=== PATIENT | male | born 1940 | race Caucasian/White ===

== ENCOUNTER 2017-07-09 14:40 | Emergency (ER) | payer MEDICARE, OTHER, SELFPAY | END 2017-07-09 15:55 | disposition home or self-care (01) | PROVIDERS: Emergency Provider Nurse Practitioner Family; Family Provider Internal Medicine Adolescent Medicine; Visit Provider Nurse Practitioner Family | DX: M54.41 Lumbago with sciatica, right side (principal); I10 Essential (primary) hypertension; J45.909 Unspecified asthma, uncomplicated; Z79.82 Long term (current) use of aspirin; Z79.899 Other long term (current) drug therapy; I25.10 Atherosclerotic heart disease of native coronary artery without angina pectoris | CPT/HCPCS: 72110; 73502; 96372; 99201 ==

== ENCOUNTER → 2017-08-20 14:28 | Outpatient (CLI) | payer MEDICARE, OTHER, SELFPAY ==
[2017-08-20 14:50] LABS: Basophils % 0.7 % (0.1-2.0); Eosinophils # 0.1 K/mm3 (0.0-0.4); Eosinophils % 1.4 % (0.1-12.0); Hemoglobin 14.1 g/dL (14.1-18.0); Lymphocytes # 1.1 K/mm3 (0.7-4.5); Mean Corpuscular HGB Conc 32.8 g/dL (31.8-35.4); Mean Corpuscular Volume 94.5 fl (80-94); Mean Platelet Volume 9.2 fl (7.4-10.4); Monocytes # 0.3 K/mm3 (0.1-1.0); Monocytes % 5.9 % (1.7-9.3); Neutrophils # 4.1 K/mm3 (1.8-7.8); Neutrophils % 72.1 % (37.0-80.0); Platelet Count 137 K/mm3 (142-424); Red Blood Count 4.55 M/mm3 (4.60-6.20); White Blood Count 5.7 K/mm3 (4.8-10.8)
[2017-08-20 15:13] LABS: Anion Gap 14.2 mEq/L (5-15); Blood Urea Nitrogen 13 mg/dL (7-18); Carbon Dioxide 29 mmol/L (21.0-32.0); Chloride 106 mmol/L (98-107); Estimated Glomerular Filt Rate 82 ml/min (>60); GFR (African American) 99 ML/MIN (>60); Glucose 179 mg/dL (74-106); Potassium 4.2 mmoL/L (3.5-5.1); Sodium 145 mmol/L (136-145)
== END ==
PROVIDERS: PCP Internal Medicine Adolescent Medicine; Visit Provider Orthopaedic Surgery
DX: Z01.818 Encounter for other preprocedural examination (principal); M54.9 Dorsalgia, unspecified
CPT/HCPCS: 36415; 80048; 85025; 93005

== ENCOUNTER 2017-09-01 00:57 | Emergency (ER) | payer MEDICARE, OTHER, SELFPAY ==
--- NOTE | 2017-09-01 | CT_ITS ---
CT angio chest HISTORY: Shortness of breath, recent surgery, history of pulmonary embolus ITS.REASON: SOB ORDERING PHYSICIAN: Anmol Chand MD PATIENT AGE: 76 years TECHNIQUE: Axial images obtained following the administration of 75 mL of Isovue 370 . Sagittal, and coronal reformatted images are also generated and reviewed. COMPARISON: None FINDINGS: There is persistent filling defect within the posterior basal branch of the left lower lobe pulmonary artery. This was present on previous exam and could be related to chronic embolus. No other filling defects are apparent. No evidence of aortic aneurysm. Small lymph nodes are present within the mediastinum. Scattered fibrotic changes are present in the apices with scattered noncalcified nodular opacities once again noted less than 6 mm unchanged. There are scattered fibrotic changes with bronchial thickening. No lobar consolidation or collapse. Pulmonary arteries are somewhat prominent and may be related to pulmonary artery hypertension. Coronary artery calcification noted. Small hiatal hernia. Degenerative changes thoracic spine. IMPRESSION: 1. Persistent filling defect in the left lower lobe branches of the pulmonary artery similar to the previous exam and could represent chronic thromboembolus. No new areas of pulmonary emboli.. Previously described other areas of pulmonary emboli have resolved. 2. Scattered stable pulmonary nodular opacities. 6 month follow-up suggested. 3. Mild prominence of the main pulmonary artery which may be seen with pulmonary artery hypertension. 4. Coronary artery disease.
--- NOTE | 2017-09-01 01:04 | XR_ITS ---
XR chest portable HISTORY: ITS.REASON: chest pain ORDERING PHYSICIAN: Anmol Chand MD PATIENT AGE: 76 years COMPARISON: 02/24/2017 FINDINGS: The cardiomediastinal silhouette and pulmonary vascularity are within normal limits. The lungs are clear without infiltrates, suspicious nodules, or pleural effusions. No acute bony abnormalities. IMPRESSION: Negative chest, no acute finding
[2017-09-01 01:12] VITALS: BP 155/100; PULSE 76; RESP 20; TEMP 36.4; O2SAT 98; BMI 25.6
--- NOTE | 2017-09-01 01:34 | PC.NURSE ---
PT. REPORTS HE TOOK A PRESCRIBED PAIN PILL AT 1130 PM AND THEN TOOK 325MG OF ASPIRIN WHEN THE PAIN CONTINUED IN HIS CHEST.
[2017-09-01 01:42] VITALS: BP 145/91; PULSE 73; O2SAT 93
--- NOTE | 2017-09-01 01:52 | [facility].EDCP ---
ED Disposition Clinical Impression: Chest pain Qualifiers: Chest pain type: other chest pain Qualified Code(s): R07.89 - Other chest pain; R07.8 - Other chest pain Disposition: Home, Self-Care Condition on Discharge: Good Instructions: DI for Atypical Chest Pain Additional Instructions: see pcp for angelo gar Referrals: Sebastian Polanco MD [Primary Care Provider] - - Critical Care Critical Care Time: No Attestation: On 09/01/17, the high probability of a clinically significant, sudden or life threatening deterioration of the following system(s) required my full and direct attention, intervention and personal management. The time I documented below is in addition to time spent performing reported procedures but includes the following listed in this critical care notation. Medical Decision Making - Medical Records Medical records reviewed: Yes: I reviewed the patient's medical records. Vital Signs: 09/01/17 01:12 09/01/17 01:42 Temperature 97.6 F Temperature Source Oral Pulse Rate [Right Radial] 76 73 Respiratory Rate 20 Blood Pressure [Right Arm] 155/100 145/91 Blood Pressure Mean [Right Arm] 118 109 Blood Pressure Source [Right Arm] Automatic Cuff Automatic Cuff Blood Pressure Position [Right Arm] Supine 02 Sat by Pulse Oximetry 98 93 L Oxygen Delivery Method Room Air Room Air - Lab Data Lab results reviewed: Yes: I reviewed the patient's lab results. Lab Results 09/01/17 01:20: Sodium 142, Potassium 4.6, Chloride 103, Carbon Dioxide 30, Anion Gap 13.6, BUN 15, Creatinine 1.03, Estimated Creat Clear 78, Estimated GFR 70, Est GFR ( Amer) 85, Glucose 152 H, Calcium 8.8, Total Bilirubin 0.6, AST 40 H, ALT 36, Alkaline Phosphatase 84, Total Creatine Kinase 455 H, CK-MB (CK-2) 22.8 H*, CK-MB (CK-2) Rel Index 5.0 H, Troponin I 0.07 H, Total Protein 7.0, Albumin 3.9, Globulin 3.1, Albumin/Globulin Ratio 1.3 09/01/17 01:51: WBC 8.8, RBC 4.26 L, Hgb 13.2 L, Hct 40.3 L, MCV 94.6 H, MCH 31.1, MCHC 32.9, RDW 13.2, Plt Count 132 L, MPV 8.8, Neut % (Auto) 88.5 H, Lymph % (Auto) 5.6 L, [place] % (Auto) 5.2, Eos % (Auto) 0.2, Baso % (Auto) 0.5, Neut # (Auto) 7.8, Lymph # (Auto) 0.5 L, [place] # (Auto) 0.5, Eos # (Auto) 0.0, Baso # (Auto) 0.0, Total Counted 100, Neutrophils % (Manual) 82 H, Band Neutrophils % 8.0, Lymphocytes % (Manual) 7 L, Monocytes % (Manual) 3, Platelet Estimate Slight decrease, RBC Morphology Normal 09/01/17 04:15: Total Creatine Kinase 372 H, CK-MB (CK-2) 17.6 H*, CK-MB (CK-2) Rel Index 4.7 H, Troponin I < 0.02 Result diagrams: 09/01/17 01:51 09/01/17 01:20 Orders (Tests/Meds): ED MEDICATIONS Discontinued Medications Generic Name Dose Route Start Last Admin Trade Name Freq PRN Reason Stop Dose Admin Iopamidol 70 ml 09/01/17 04:15 09/01/17 04:20 [id number]; 75ml Vial IV 09/01/17 04:16 70 ml ONCE ONE Administration Sodium Chloride 40 ml 09/01/17 04:11 09/01/17 04:17 Rad-Ns 20ml Vial IV 09/01/17 04:12 40 ml ONCE ONE Administration Sodium Chloride 10 ml 09/01/17 04:15 09/01/17 04:19 Rad-Saline Flush 10ml Syringe IV 09/01/17 04:16 10 ml ONCE ONE Administration ORDERS Category Date Time Status CT angio chest Stat Cat Scan 09/01/17 Taken Chest XR -- portable [XR chest portable] Stat Exams 09/01/17 01:04 Taken ECG Request by /Edinson Stat Y 09/01/17 01:04 Ordered - Radiology Data #1 Image(s): Chest Image Reviewed: Yes I reviewed the patient's radiology image Preliminary Findings: Normal/NAD - CT Data CT Scan: Chest Time Received: 05:[address] Reviewed: Yes: I have viewed the radiologist's interpretation Preliminary Findings: Normal/NAD - ECG Data Tracing #1 I reviewed this ECG and interpreted as documented below: Normal Sinus Rhythm: Yes Ischemic changes: non-specific ST-T wave changes (no changes as compared to old ekg) - Jamir Inquiry Pt receiving controlled substance: No Chest Pain HPI - General Norma
[2017-09-01 01:58] LABS: Alanine Aminotransferase 36 U/L (12-78); Albumin Level 3.9 gm/dL (3.4-5.0); Albumin/Globulin Ratio 1.3 (1.1-1.8); Alkaline Phosphatase 84 U/L (46-116); Anion Gap 13.6 mEq/L (5-15); Aspartate Amino Transferase 40 U/L (15-37); Bilirubin,Total 0.6 mg/dL (0.2-1.0); Blood Urea Nitrogen 15 mg/dL (7-18); Carbon Dioxide 30 mmol/L (21.0-32.0); Chloride 103 mmol/L (98-107); Creatine Kinase 455 U/L (39-308); Creatinine Clearance Estimated 78 mL/min (0-300); Creatinine,Serum 1.03 mg/dL (0.70-1.30); Estimated Glomerular Filt Rate 70 ml/min (>60); GFR (African American) 85 ML/MIN (>60); Globulin 3.1 gm/dl (1.3-3.2); Glucose 152 mg/dL (74-106); Potassium 4.6 mmoL/L (3.5-5.1); Sodium 142 mmol/L (136-145); Troponin I 0.07 ng/ml (0.00-0.06)
[2017-09-01 02:00] LABS: Basophils % 0.5 % (0.1-2.0); Eosinophils % 0.2 % (0.1-12.0); Hematocrit 40.3 % (42.0-52.0); Hemoglobin 13.2 g/dL (14.1-18.0); Lymphocytes # 0.5 K/mm3 (0.7-4.5); Lymphocytes % 5.6 K/mm3 (10-50); Mean Corpuscular HGB Conc 32.9 g/dL (31.8-35.4); Mean Corpuscular Hemoglobin 31.1 pg (27.0-31.2); Mean Corpuscular Volume 94.6 fl (80-94); Mean Platelet Volume 8.8 fl (7.4-10.4); Monocytes # 0.5 K/mm3 (0.1-1.0); Monocytes % 5.2 % (1.7-9.3); Neutrophils # 7.8 K/mm3 (1.8-7.8); Neutrophils % 88.5 % (37.0-80.0); Platelet Count 132 K/mm3 (142-424); Red Blood Count 4.26 M/mm3 (4.60-6.20); Red Cell Distribution Width 13.2 % (11.5-17.5); White Blood Count 8.8 K/mm3 (4.8-10.8)
[2017-09-01 02:02] LABS: MANUAL DIFFERENTIAL MANUAL DIFFERENTIAL (MANUAL DIFF)
[2017-09-01 02:05] LABS: Calcium 8.8 mg/dL (8.5-10.1); Creatine Kinase MB 22.8 mg/ml (0.0-3.6)
[2017-09-01 02:28] LABS: Lymphocytes % 7 % (10-50); Monocytes % 3 % (2-9); Neutrophils % 82 % (42-76); Platelet Estimate Slight Decrease; Total Cells Counted 100
[2017-09-01 02:29] LABS: RBC Morphology Normal
[2017-09-01 04:44] LABS: CKMB Relative Index 4.7 U/L (0-4.0); Creatine Kinase 372 U/L (39-308); Troponin I < 0.02 ng/ml (0.00-0.06)
[2017-09-01 04:45] LABS: Creatine Kinase MB 17.6 mg/ml (0.0-3.6)
[2017-09-01 05:36] VITALS: BP 120/83; PULSE 72; RESP 18; TEMP 36.7; O2SAT 94
== END 2017-09-01 05:36 | disposition home or self-care (01) ==
PROVIDERS: Emergency Provider Emergency Medicine; Family Provider Internal Medicine Adolescent Medicine; PCP Internal Medicine Adolescent Medicine
DX: R07.89 Other chest pain (principal); Z79.82 Long term (current) use of aspirin; Z88.6 Allergy status to analgesic agent
CPT/HCPCS: 36415; 71045; 71275; 80053; 82550; 82553; 84484; 85007; 85025; 93005; 93041; 99283; Q9967

== ENCOUNTER → 2017-10-15 13:02 | Outpatient (CLI) | payer MEDICARE, OTHER, SELFPAY ==
--- NOTE | 2017-10-15 13:22 | CT_ITS ---
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 All CT scans at the facility use one or more dose reduction, viz: automated exposure control; ma/kV adjustment per patient size (including targeted exams where dose is matched to indication; i.e. head); or iterative reconstruction technique. FINDINGS: There is soft tissue swelling in the right periorbital region. No obvious acute fracture or dislocation apparent. There is a small metallic density within the soft tissues in the infraorbital region on the right slightly medial consistent with a foreign body. The orbits have an unremarkable appearance otherwise. Lobular mucosal thickening involves the maxillary sinuses bilaterally and the left sphenoid sinus consistent with retention cyst measuring up to 2 cm in the left sphenoid region. Postsurgical changes are present prior medial antrectomies of the maxillary sinuses. Mucosal thickening involves the right maxillary sinus inferiorly measuring up to 9 mm in thickness. No sinus air-fluid level. There are degenerative changes in the cervical spine. IMPRESSION: 1. No acute fracture 2. Right periorbital soft tissue swelling with a small metallic foreign body in the infraorbital region on the right measuring approximately 2 mm. 3. Postsurgical changes of the maxillary sinuses with chronic paranasal sinus disease including 2 cm retention cyst in the left aspect sphenoid sinus
--- NOTE | 2017-10-15 13:22 | CT_ITS ---
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 Brain and bone windows reviewed. All CT scans at the facility use one or more dose reduction, viz: automated exposure control; ma/kV adjustment per patient size (including targeted exams where dose is matched to indication; i.e. head); or iterative reconstruction technique. FINDINGS: No midline shift, mass effect, intracranial hemorrhage, hydrocephalus, or extra-axial fluid collection is evident. Scattered areas of decreased attenuation are present in the periventricular and subcortical regions bilaterally consistent with ischemic gliotic change from microvascular disease. No intra or extra-axial hemorrhage is evident. Soft tissue swelling is present in the right supraorbital region. No obvious calvarial fracture. IMPRESSION: 1. No acute intracranial findings. 2. Right femoral soft tissue swelling. 3. Ischemic gliotic change from microvascular disease
== END ==
PROVIDERS: PCP Internal Medicine Adolescent Medicine; Visit Provider Nurse Practitioner Family
DX: H05.231 Hemorrhage of right orbit (principal); Z79.01 Long term (current) use of anticoagulants; W19.XXXA Unspecified fall, initial encounter
CPT/HCPCS: 70450; 70486

== ENCOUNTER → 2017-12-25 10:54 | Outpatient (POV) | payer MEDICARE, OTHER, SELFPAY | PROVIDERS: Family Provider Internal Medicine Adolescent Medicine; PCP Internal Medicine Adolescent Medicine; Visit Provider Internal Medicine | DX: Z00.00 Encounter for general adult medical examination without abnormal findings (principal) ==

== ENCOUNTER → 2018-01-08 15:06 | Outpatient (CLI) | payer MEDICARE, OTHER, SELFPAY ==
[2018-01-08 15:36] LABS: Basophils % 0.8 % (0.1-2.0); Eosinophils # 0.1 K/mm3 (0.0-0.4); Eosinophils % 1.7 % (0.1-12.0); Hematocrit 46.3 % (42.0-52.0); Hemoglobin 15.1 g/dL (14.1-18.0); Lymphocytes # 0.7 K/mm3 (0.7-4.5); Lymphocytes % 17.2 K/mm3 (10-50); Mean Corpuscular HGB Conc 32.6 g/dL (31.8-35.4); Mean Corpuscular Hemoglobin 30.5 pg (27.0-31.2); Mean Corpuscular Volume 93.5 fl (80-94); Mean Platelet Volume 10.5 fl (7.4-10.4); Monocytes # 0.3 K/mm3 (0.1-1.0); Monocytes % 6.1 % (1.7-9.3); Neutrophils # 3.2 K/mm3 (1.8-7.8); Neutrophils % 74.1 % (37.0-80.0); Platelet Count 107 K/mm3 (142-424); Red Blood Count 4.96 M/mm3 (4.60-6.20); Red Cell Distribution Width 12.3 % (11.5-17.5); White Blood Count 4.3 K/mm3 (4.8-10.8)
[2018-01-08 15:57] LABS: D-Dimer 607 ng/mL (0-400)
[2018-01-08 17:23] LABS: Anion Gap 10.8 mEq/L (5-15); Blood Urea Nitrogen 16 mg/dL (7-18); Calcium 9.1 mg/dL (8.5-10.1); Carbon Dioxide 31 mmol/L (21.0-32.0); Chloride 104 mmol/L (98-107); Creatine Kinase 144 U/L (39-308); Creatine Kinase MB 7.2 ng/ml (0.0-3.6); Creatinine,Serum 0.72 mg/dL (0.70-1.30); Estimated Glomerular Filt Rate 105 ml/min (>60); GFR (African American) 127 ML/MIN (>60); Glucose 102 mg/dL (74-106); Potassium 4.8 mmoL/L (3.5-5.1); Sodium 141 mmol/L (136-145); Troponin I < 0.02 ng/ml (0.00-0.06)
== END ==
PROVIDERS: Visit Provider Internal Medicine Adolescent Medicine
DX: Z86.711 Personal history of pulmonary embolism (principal)
CPT/HCPCS: 36415; 80048; 82550; 82553; 84484; 85025; 85378

== ENCOUNTER → 2018-01-09 08:34 | Outpatient (CLI) | payer MEDICARE, OTHER, SELFPAY ==
--- NOTE | 2018-01-09 08:49 | CT_ITS ---
CT angio chest HISTORY: Chest pain, history of pulmonary embolus ITS.REASON: H/O PULMONARY EMBOLISM ORDERING PHYSICIAN: Sebastian Polanco MD PATIENT AGE: 77 years COMPARISON: 09/01/2017 TECHNIQUE: Axial images obtained following the administration of 75 mL of Isovue 370 . Sagittal, and coronal reformatted images are also generated and reviewed. All CT scans at the facility use one or more dose reduction, viz: automated exposure control; ma/kV adjustment per patient size (including targeted exams where dose is matched to indication; i.e. head); or iterative reconstruction technique. FINDINGS: There are a few small stable mediastinal lymph nodes. Coronary artery calcifications are present. No evidence of aortic aneurysm or dissection. There is some tortuosity of the lower thoracic aorta. No evidence of pulmonary embolus previously noted embolus in the left lower lobe branches no longer apparent. There remains prominence of the main pulmonary artery with a pulmonary artery/aorta ratio greater than 1 which may be seen with pulmonary arterial hypertension There are stable sub-6 mm small bilateral pulmonary nodular densities. No new nodules evident. No effusions or infiltrates. Scattered fibrotic changes are noted. Degenerative changes thoracic spine. No acute finding in the upper abdomen. IMPRESSION: 1. No evidence of acute pulmonary embolus. Previously noted embolus in the left lower lobe has resolved. 2. Scattered fibrotic changes with stable small bilateral pulmonary nodules 3. COPD with persistent prominence of the main pulmonary artery which may be seen with pulmonary arterial hypertension
== END ==
PROVIDERS: Family Provider Internal Medicine Adolescent Medicine; PCP Internal Medicine Adolescent Medicine; Visit Provider Internal Medicine Adolescent Medicine
DX: Z86.711 Personal history of pulmonary embolism (principal)
CPT/HCPCS: 71275; Q9967

== ENCOUNTER → 2018-01-21 12:41 | Outpatient (CLI) | payer MEDICARE, OTHER, SELFPAY ==
--- NOTE | 2018-01-21 12:46 | NVE_ITS ---
Venous Exam Indications: 729.5 Pain in limb. IMPRESSIONS 1. There is no evidence of significant Reflux. 2. No evidence of deep or superficial vein thrombosis involving the right lower extremity and left lower extremity Complete lower extremity venous duplex evaluation. Doppler flow study including spectral analysis, color and antonio scale imaging. Location: Vascular laboratory. Patient status: Outpatient. Tables: Venous flow and imaging: + +-------+ + Location Overall Flow properties + +-------+ + Right common femoral Patent Normal phasicity; spontaneous; normal augmentation; compressible + +-------+ + Right saphenofemoral junction Patent Compressible + +-------+ + Right profunda femoral Patent Compressible + +-------+ + Right femoral Patent Normal phasicity; spontaneous; normal augmentation; compressible; no reflux + +-------+ + Right greater saphenous Patent Normal phasicity; spontaneous; normal augmentation; compressible + +-------+ + Right popliteal Patent Normal phasicity; spontaneous; normal augmentation; compressible + +-------+ + Right posterior tibial Patent Compressible + +-------+ + Right peroneal Patent Compressible + +-------+ + Right gastrocnemius Patent Compressible + +-------+ + Right soleal Patent Compressible + +-------+ + Left common femoral Patent Normal phasicity; spontaneous; normal augmentation; compressible + +-------+ + Left saphenofemoral junction Patent Compressible + +-------+ + Left profunda femoral Patent Compressible + +-------+ + Left femoral Patent Normal phasicity; spontaneous; normal augmentation; compressible + +-------+ + Left greater saphenous Patent Normal phasicity; spontaneous; normal augmentation; compressible + +-------+ + Left popliteal Patent Normal phasicity; spontaneous; normal augmentation; compressible + +------
== END ==
PROVIDERS: Family Provider Internal Medicine Adolescent Medicine; PCP Internal Medicine Adolescent Medicine; Visit Provider Internal Medicine Adolescent Medicine
DX: M79.604 Pain in right leg (principal); M79.605 Pain in left leg; R79.1 Abnormal coagulation profile
CPT/HCPCS: 93970

== ENCOUNTER → 2018-06-25 10:43 | Outpatient (POV) | payer MEDICARE, OTHER, SELFPAY | PROVIDERS: Visit Provider Internal Medicine | DX: Z00.00 Encounter for general adult medical examination without abnormal findings (principal) ==

== ENCOUNTER → 2018-06-28 13:25 | Outpatient (CLI) | payer MEDICARE, OTHER, SELFPAY ==
--- NOTE | 2018-06-28 13:30 | CA_ITS ---
PROCEDURE: 2-D M-mode and color Doppler study INDICATIONS FOR THE TEST: Chest pain + COPD Heart Murmur Tobacco Smoking Palpitations Fatigue Syncope Edema Hypertension Diabetes Mellitus Rheumatic Fever SOB+STEWARD+Obesity Hyperlipidemia Family History HD Additional History CAD,irregular heart rate, hx of PE's PATIENT INFORMATION HEIGHT: 75 WEIGHT:198 GENDER: Male B/P:133/74 2-D/M-MODE INTERPRETATION: 2-D MEASUREMENTS OBSERVED VALUES IN CMS Right Ventricular Dimension (RVDd) 1.5 Interventricular Septum (Thickness)(IVsd) 1.3 Left Ventricular Internal Dimensions(LVIDd) 5.6 Left Ventricular Posterior Wall (Thickness)(LVPWd) 0.8 Aortic Root 3.1 Aortic Cusp Separation 1.4 Left Atrial Dimensions (LAD) 4.3 2D 1. Left atrium is mildly enlarged, left ventricle is normal size, there is mild concentric left ventricular hypertrophy, endocardial subsequent poorly visualized, visually estimated ejection fraction is probably 50%. A repeat study with Definity contrast is recommended to assess segmental wall motion analysis. 2. The right atrium and right ventricle are normal size and contractility. 3. The aortic valve is minimally thickened and fibrosed. 4. The mitral and tricuspid valve leaflets are minimally thickened. 5. The pulmonic valve is poorly visualized. 6. No significant pericardial effusion noted. DOPPLER INTERROGATION: Doppler interrogation of the aortic, mitral and tricuspid valvular presence of mild mitral and tricuspid regurgitation, tricuspid regurgitation jet velocity is inadequate for calculation of the right ventricular systolic pressure, diastolic parameters are inconclusive. CONCLUSION: 1. Mildly enlarged left atrium, normal left ventricular size, mild concentric left ventricular hypertrophy, endocardial surfaces are poorly visualized, visually estimated ejection fraction is probably 50%, a repeat study with Definity contrast is recommended for analysis of segmental wall motion. Diastolic parameters are inconclusive. 2. Mild mitral and tricuspid regurgitation 3. No significant pericardial effusion noted.
== END ==
PROVIDERS: PCP Internal Medicine Adolescent Medicine; Visit Provider Internal Medicine
DX: R06.00 Dyspnea, unspecified (principal); I49.9 Cardiac arrhythmia, unspecified; I26.99 Other pulmonary embolism without acute cor pulmonale
CPT/HCPCS: 93005; 93306

== ENCOUNTER → 2019-01-08 11:20 | Outpatient (CLI) | payer MEDICARE, OTHER, SELFPAY ==
[2019-01-08 11:47] LABS: Basophils % 0.9 % (0.1-2.0); Eosinophils # 0.1 K/mm3 (0.0-0.4); Eosinophils % 1.8 % (0.1-12.0); Hematocrit 44.5 % (42.0-52.0); Hemoglobin 14.4 g/dL (14.1-18.0); Lymphocytes # 0.9 K/mm3 (0.7-4.5); Lymphocytes % 24.6 % (10-50); Mean Corpuscular HGB Conc 32.3 g/dL (31.8-35.4); Mean Corpuscular Hemoglobin 30.1 pg (27.0-31.2); Mean Platelet Volume 7.7 fl (7.4-10.4); Monocytes # 0.2 K/mm3 (0.1-1.0); Monocytes % 6.4 % (1.7-9.3); Neutrophils # 2.4 K/mm3 (1.8-7.8); Neutrophils % 66.4 % (37.0-80.0); Platelet Count 155 K/mm3 (142-424); Red Blood Count 4.78 M/mm3 (4.60-6.20); Red Cell Distribution Width 12.4 % (11.5-17.5); White Blood Count 3.6 K/mm3 (4.8-10.8)
[2019-01-08 15:48] LABS: Alanine Aminotransferase 42 U/L (12-78); Albumin Level 3.9 gm/dL (3.4-5.0); Albumin/Globulin Ratio 1.5 (1.1-1.8); Alkaline Phosphatase 83 U/L (46-116); Anion Gap 14.7 mEq/L (5-15); Aspartate Amino Transferase 30 U/L (15-37); Bilirubin,Total 0.5 mg/dL (0.2-1.0); Blood Urea Nitrogen 15 mg/dL (7-18); Calcium 9.1 mg/dL (8.5-10.1); Carbon Dioxide 28 mmol/L (21.0-32.0); Chloride 105 mmol/L (98-107); Chol/HDL Ratio 3.1 (1-3.5); Cholesterol 157 mg/dL (140-200); Creatine Kinase 233 U/L (39-308); Creatinine,Serum 0.78 mg/dL (0.70-1.30); Estimated Glomerular Filt Rate 96 ml/min (>60); Free Thyroxine Index 2.6 ug/dL (5.93-13.13); GFR (African American) 116 ML/MIN (>60); Globulin 2.6 gm/dl (1.3-3.2); Glucose 89 mg/dL (74-106); HDL Cholesterol 50 mg/dL (27-67); LDL Cholesterol 84 mg/dL (0-130); Magnesium 2.2 mg/dL (1.4-2.2); Potassium 4.7 mmoL/L (3.5-5.1); Prostate Specific Ag Screen 4.1 ng/mL (0.0-4.0); Sodium 143 mmol/L (136-145); Thyroid Stimulating Hormone 1.14 uIU/ml (0.358-3.740); Total Protein,Serum 6.5 gm/dL (6.4-8.2); Triglycerides 113 mg/dL (30-200); Triiodothryronine (T3) Uptake 33 % (31-39); VLDL Cholesterol 23 mg/dL (0-40)
[2019-01-09 18:56] LABS: Vitamin B12 375 pg/mL (232-1245); Vitamin D 25 Hydroxy 36.1 ng/mL (30.0-100.0)
== END ==
PROVIDERS: Visit Provider Internal Medicine Adolescent Medicine
DX: G60.9 Hereditary and idiopathic neuropathy, unspecified (principal); M79.10 Myalgia, unspecified site; E78.5 Hyperlipidemia, unspecified; R97.20 Elevated prostate specific antigen [PSA]; Z12.5 Encounter for screening for malignant neoplasm of prostate
CPT/HCPCS: 36415; 80053; 80061; 82550; 82607; 82652; 83735; 84436; 84443; 84479; 85025; G0103

== ENCOUNTER 2020-06-26 09:12 | Observation (INO) | payer MEDICARE, OTHER, SELFPAY ==
[2020-06-26] VITALS (9 sets, daily range): BP systolic 126–203; BP diastolic 68–113; PULSE 62–89; RESP 16–20; TEMP 36.6–36.8; O2SAT 95–99; BMI 24.8; BMI 24.6
--- NOTE | 2020-06-26 09:26 | CT_ITS ---
PROCEDURE: CT HEAD/BRAIN WO CON CLINICAL INDICATION: r/o stroke Right-sided weakness COMPARISON: CT HEADWO CT head/brain wo con from 10/15/2017 TECHNIQUE: Axial images obtained. All CT scans at the facility use one or more dose reduction, viz: automated exposure control, ma/kV adjustment per patient size (including targeted exams where dose is matched to indication, i.e. head), or iterative reconstruction technique. FINDINGS: No midline shift, mass effect, intracranial hemorrhage, hydrocephalus, or extra-axial fluid collection is evident. There is generalized atrophy with hypoattenuation of the periventricular white matter consistent with microangiopathic changes. The calvarium has an unremarkable appearance. No mastoid effusion. Mild ethmoid mucosal thickening and mild maxillary mucosal thickening. IMPRESSION: No acute intracranial finding Dictated by: Orlando Sena MD 06/26/2020 14:25 Orlando Sena MD in [facility] 06/26/2020 14:25
--- NOTE | 2020-06-26 09:26 | XR_ITS ---
PROCEDURE: XR CHEST 2V CLINICAL HISTORY: chest pain COMPARISON: CR CXR CHEST(2 VIEWS-NOT PORTABLE) from 02/12/2017 CR CXR1 CHEST-PORTABLE from 02/24/2017 CR [id number] XR chest portable from 09/01/[address] angio chest from 01/09/2018 FINDINGS: The cardiomediastinal silhouette and pulmonary vascularity are within normal limits. No lobar consolidation or collapse. There is hyperinflation with attenuation of the peripheral pulmonary vessels suggesting small airway disease. There is also some increased density in the right perihilar region which may be due to vascular and rib overlap. There are degenerative changes in the thoracic spine with mild kyphosis with mild wedging of T7-T8 and T9 which appears chronic IMPRESSION: No definite acute finding. Hyperinflation suggesting small airway disease. Patchy density right perihilar region which may be due to summation artifact versus minimal patchy infiltrate or atelectasis Dictated by: Orlando Sena MD 06/26/2020 14:31 Orlando Sena MD in [facility] 06/26/2020 14:31
--- NOTE | 2020-06-26 09:30 | ECG_ITS ---
APPROVED REPORT Exam: Resting ECG HR:81 bpm ECG Measurements Heart Rate 81 AXES OR 172 P 53 QRSd 98 QRS -58 QT 370 T 53 QTc 429 Conclusion Sinus rhythm with sinus arrhythmia with occasional premature ventricular complexes Left axis deviation Old septal changes Abnormal ECG Electronically signed by : Sebastian Polanco, 06/27/2020 19:57:27
[2020-06-26 09:33] LABS: Basophils % 1.1 % (0.1-2.0); Eosinophils # 0.1 K/mm3 (0.0-0.4); Eosinophils % 1.8 % (0.1-12.0); Hematocrit 49.5 % (42.0-52.0); Hemoglobin 16.6 g/dL (14.1-18.0); Lymphocytes # 0.9 K/mm3 (0.7-4.5); Lymphocytes % 24.2 % (10-50); Mean Corpuscular HGB Conc 33.4 g/dL (31.8-35.4); Mean Corpuscular Hemoglobin 31.9 pg (27.0-31.2); Mean Corpuscular Volume 95.6 fl (80-94); Mean Platelet Volume 11.7 fl (7.4-10.4); Monocytes # 0.2 K/mm3 (0.1-1.0); Monocytes % 5.6 % (1.7-9.3); Neutrophils # 2.5 K/mm3 (1.8-7.8); Neutrophils % 67.2 % (37.0-80.0); Platelet Count 90 K/mm3 (142-424); Red Blood Count 5.18 M/mm3 (4.60-6.20); Red Cell Distribution Width 13.8 % (11.5-17.5); White Blood Count 3.8 K/mm3 (4.8-10.8)
[2020-06-26 09:41] LABS: Chloride 105 mmol/L (98-107); Sodium 140 mmol/L (136-145)
[2020-06-26 09:42] LABS: Potassium 4.6 mmoL/L (3.5-5.1)
[2020-06-26 09:44] LABS: Alanine Aminotransferase 28 U/L (12-78); Albumin Level 4.6 g/dl (3.5-5.0); Albumin/Globulin Ratio 1.6 (1.1-1.8); Alkaline Phosphatase 86 U/L (38-126); Anion Gap 11.6 mEq/L (5-15); Aspartate Amino Transferase 42 U/L (17-59); Bilirubin,Total 0.8 mg/dl (0.2-1.3); Blood Urea Nitrogen 12 mg/dl (9-20); Carbon Dioxide 28 mmol/L (22.0-30.0); Creatinine Clearance Estimated 74 mL/min (50-200); Estimated Glomerular Filt Rate 93 ml/min (>60); GFR (African American) 112 ML/MIN (>60); Globulin 2.8 g/dL (1.3-3.2); Total Protein,Serum 7.4 g/dl (6.3-8.2)
[2020-06-26 09:45] LABS: Calcium 9.6 mg/dl (8.4-10.2); Glucose 105 mg/dl (74-100)
[2020-06-26 09:54] LABS: NT Pro Brain Natriuretic Pep. 952 pg/mL (0-450)
[2020-06-26 09:57] LABS: Activated Partial Thrombo Time 25.3 seconds (23.6-34.0); INR 0.98 (0.9-1.1); Prothrombin Time 10.9 seconds (9.4-11.8)
[2020-06-26 10:10] LABS: Troponin I < 0.01 ng/ml (0.00-0.034)
--- NOTE | 2020-06-26 10:29 | PC.NURSE ---
Dr Amin spoke with Stella
--- NOTE | 2020-06-26 11:05 | PC.NURSE ---
Dr Eloisa mackenzie to dr tucker for dr yanez pt for admission
--- NOTE | 2020-06-26 11:11 | [facility].EDGENADL ---
ED Disposition Clinical Impression: TIA (transient ischemic attack), Hypertensive urgency Disposition: Admitted As Inpatient Condition on Discharge: Fair Referrals: Sebastian Polanco MD [Primary Care Provider] - - Critical Care Critical Care Time: No Attestation: On 06/26/20, the high probability of a clinically significant, sudden or life threatening deterioration of the following system(s) required my full and direct attention, intervention and personal management. The time I documented below is in addition to time spent performing reported procedures but includes the following listed in this critical care notation. Medical Decision Making - Medical Records Medical records reviewed: Yes: I reviewed the patient's medical records. - Jamir Inquiry Pt receiving controlled substance: No Vital Signs: 06/26/20 09:21 06/26/20 09:44 06/26/20 10:14 Temperature 98.2 F Temperature Source Oral Pulse Rate [Right Radial] 84 82 73 Respiratory Rate 17 18 20 Blood Pressure [Right Arm] 203/113 H 179/112 H 169/108 H Blood Pressure Mean [Right Arm] 143 134 128 Blood Pressure Source [Right Arm] Automatic Cuff Automatic Cuff Blood Pressure Position [Right Arm] Sitting Sitting 02 Sat by Pulse Oximetry 95 97 98 Oxygen Delivery Method Room Air Room Air Room Air 06/26/20 10:36 Temperature Temperature Source Pulse Rate [Right Radial] 88 Respiratory Rate 16 Blood Pressure [Right Arm] 163/93 H Blood Pressure Mean [Right Arm] 116 Blood Pressure Source [Right Arm] Blood Pressure Position [Right Arm] Sitting 02 Sat by Pulse Oximetry 98 Oxygen Delivery Method Room Air - Lab Data Lab Results 06/26/20 09:23: WBC 3.8 L, RBC 5.18, Hgb 16.6, Hct 49.5, MCV 95.6 H, MCH 31.9 H, MCHC 33.4, RDW 13.8, Plt Count 90 L, MPV 11.7 H, Neut % (Auto) 67.2, Lymph % (Auto) 24.2, [place] % (Auto) 5.6, Eos % (Auto) 1.8, Baso % (Auto) 1.1, Neut # (Auto) 2.5, Lymph # (Auto) 0.9, [place] # (Auto) 0.2, Eos # (Auto) 0.1, Baso # (Auto) 0.0 06/26/20 09:23: PT 10.9, INR 0.98, APTT 25.3 06/26/20 09:23: Sodium 140, Potassium 4.6, Chloride 105, Carbon Dioxide 28, Anion Gap 11.6, BUN 12, Creatinine 0.80, Estimated Creat Clear 74, Estimated GFR 93, Est GFR ( Amer) 112, Glucose 105 H, Calcium 9.6, Total Bilirubin 0.8, AST 42, ALT 28, Alkaline Phosphatase 86, Troponin I < 0.01, Total Protein 7.4, Albumin 4.6, Globulin 2.8, Albumin/Globulin Ratio 1.6 06/26/20 09:23: NT-Pro-B Natriuret Pep 952 H Result diagrams: 06/26/20 09:23 06/26/20 09:23 Orders (Tests/Meds): ED MEDICATIONS Discontinued Medications Generic Name Dose Route Start Last Admin Trade Name Freq PRN Reason Stop Dose Admin Aspirin 325 mg 06/26/20 11:05 Aspirin 325mg Tablet PO 06/26/20 11:06 ONCE ONE Labetalol HCl 10 mg 06/26/20 09:30 06/26/20 09:39 Labetalol 5mg/Ml 20ml Mdv IV 06/26/20 09:31 10 mg ONCE ONE Administration ORDERS Category Date Time Status CT head/brain wo con Stat Cat Scan 06/26/20 09:26 Taken XR chest 2V Stat Exams 06/26/20 09:26 Taken Troponin I Q3H Lab 06/26/20 12:30 Ordered Troponin I Q3H Lab 06/26/20 15:30 Ordered - CT Data CT Scan: Head Time Received: 11:[address] Reviewed: Yes: I have reviewed the patient's CT results, I have viewed the radiologist's interpretation Preliminary Findings: Normal/NAD - ECG Data Tracing #1 Normal ventricular rate 81 bpm, normal SC interval of 172 ms. Normal QTC. Sinus rhythm with occasional PVC, nonspecific changes. ECG initial impression date: 06/26/20 ECG initial impression time: 09:32 - Reevaluation(s) Time: 11:15 Reevaluation #1: On reevaluation, patient's blood pressure has improved. No acute intracranial findings. Patient's weakness has improved. However given his symptoms I am concerned for possible TIA. Patient was administered aspirin. Admitted to hospital for further evaluation and treatment. Medical Decision Narrative: 79-year-old male presented
[2020-06-26 12:32] LABS: Coronavirus 19 IgG Antibody Negative (Negative); Coronavirus 19 IgM Antibody Negative (Negative)
--- NOTE | 2020-06-26 12:33 | PC.NURSE ---
notified the floor nurse francheska perez that patient is ready for bedside report and transport.
[2020-06-26 14:41] LABS: Troponin I 0.02 ng/ml (0.00-0.034)
--- NOTE | 2020-06-26 15:00 | HMH.HP ---
*Admission Date: 06/26/20 *Chief complaint: right sided numbness/weakness *History of present illness: Mr. Garza is an 79-year-old male with history of hypertension who presented to the ER this morning with complaint of right-sided weakness and numbness. States the symptoms began early this morning approximately 4 AM. Though he may have had similar symptoms yesterday as well per his recollection. They were not as severe however. His son was concerned so they brought him to the emergency room for assessment. States he had similar symptoms but not as severe with the previous mini strokes . Denies missing medication, takes his nebivolol at night. Symptoms starting to show some improvement upon arrival to the ER. Work-up consisted of EKG, CT of his head, vitals and basic labs. Noted to have hypertensive emergency with systolic greater than 200. With a dose of labetalol, his blood pressure has responded nicely with improvement/resolution of his right-sided neurologic symptoms. All his medications as prescribed. Denies any other weakness, word finding difficulty, speech difficulty, syncope, change in vision. No headache. Mild chest discomfort on presentation to the ER. No fevers or chills. No neck pain. No associated shortness of breath or cough. No abdominal pain, vomiting or diarrhea. He was admitted to medicine for further management and treatment of TIA. Started on aspirin Lovenox, the Lovenox not given prior to arrival to the floor. On my assessment after the patient arrived to the floor he appeared alert and oriented. Denied any right-sided weakness at this time. Blood pressure improved with systolics 150-160. [facility] History I have reviewed the patient's past medical history: Yes Medical History: Reports:: Asthma, Deep Vein Thrombosis, Hypertension, Lung Disease Denies:: Diabetes Mellitus Type 1, Diabetes Mellitus Type 2, Internal Pacemaker, MRSA, Seizures *Have you ever received a pneumonia vaccine?: Yes *Have you received a flu vaccine this season?: Yes Laterality Cases: Right: Arthroscopy Shoulder Other Surgeries: Yes: Colonoscopy, Colon Resection, Hernia Repair. No: Pacemaker Amputation: No Fractures: No - *Social History Smoking Status: Never smoker Alcohol Intake: never Alcohol Intake Frequency:: other Substance Use Type: denies use *Occupational Status:: employed Housing: house Household Members: spouse *Travel in the last 8 weeks: None Family Hx:: Unable to obtain Review of Systems - Review of Systems Review of systems:: pertinent systems reviewed and negative unless documented below (14 point review of systems performed, pertinent positives and negatives as per HPI) - *Neurologic Reports weakness Meds Home Medications Medication Instructions Recorded Confirmed Type Aspirin [Aspirin 325mg Tab] 325 mg PO DAILY 09/01/17 06/26/20 History Budesonide/Formoterol Fumarate 2 puff IH BID 09/01/17 06/26/20 History [Symbicort 80-4.5 Mcg Inhaler] Doxazosin Mesylate [Doxazosin 2mg 2 mg PO BID 09/01/17 06/26/20 History Tab] Nebivolol HCl [Bystolic] 5 mg PO DAILY 06/26/20 06/26/20 History Allergies Allergy/AdvReac Type Severity Reaction Status Date / Time acetaminophen [From [place]] Allergy Verified 06/26/20 09:25 hydrocodone [From [place]] Allergy Verified 06/26/20 09:25 Exam Vital signs and Labs for Last 24 Hours: Temp Pulse Resp BP Pulse Ox 97.9 F 89 18 126/68 96 06/26/20 14:00 06/26/20 14:00 06/26/20 14:00 06/26/20 14:00 06/26/20 14:00 Laboratory Results - last 24 hr 06/26/20 09:23: WBC 3.8 L, RBC 5.18, Hgb 16.6, Hct 49.5, MCV 95.6 H, MCH 31.9 H, MCHC 33.4, RDW 13.8, Plt Count 90 L, MPV 11.7 H, Neut % (Auto) 67.2, Lymph % (Auto) 24.2, [place] % (Auto) 5.6, Eos % (Auto) 1.8, Baso % (Auto) 1.1, Neut # (Auto) 2.5, Lymph # (Auto) 0.9, [place] # (Auto) 0.2, Eos # (Auto) 0.1, Baso # (Auto) 0.0 06/26/20 09:23: PT 10.9, INR 0.98, APTT 25.3 06/26/20 09:23: Sodium 140, Potassium 4
--- NOTE | 2020-06-26 16:02 | PC.NURSE ---
Contacted Speech therapy and physical therapy for this pt. Lanette from speech said it will be tomorrow before she can come. I left a voicemail for physical therapy to call back.
--- NOTE | 2020-06-26 17:03 | HMH.PHAVTE ---
[facility] Pharmacy VTE Monitoring - Patient Demographics Admission date: 06/26/20 Report Date: 06/26/20 Time: 17:03 Allergies/Adverse Reactions: Patient Allergies acetaminophen [From [place]] Allergy (Verified 06/26/20 09:25) hydrocodone [From [place]] Allergy (Verified 06/26/20 09:25) Height: 1.91 m Weight: 89.414 kg Patient Problems: Current Active Problems Chest pain (Acute) TIA (transient ischemic attack) (Acute) Hypertensive urgency (Acute) - VTE Risk Labs: VTE Related Lab Results Hgb 16.6 g/dL (14.1-18.0) 06/26/20 09:23 Hct 49.5 % (42.0-52.0) 06/26/20 09:23 Plt Count 90 K/mm3 (142-424) L 06/26/20 09:23 PT 10.9 seconds (9.4-11.8) 06/26/20 09:23 INR 0.98 (0.9-1.1) 06/26/20 09:23 APTT 25.3 seconds (23.6-34.0) 06/26/20 09:23 BUN 12 mg/dl (9-20) 06/26/20 09:23 Creatinine 0.80 mg/dl (0.66-1.25) 06/26/20 09:23 Estimated Creat Clear 74 mL/min (50-200) 06/26/20 09:23 VTE Score: 4 VTE Risk Level: Low Risk - Prophylaxis VTE Prophylaxis Ordered?: Yes Types of VTE Prophylaxis: TEDS Knee High Location of Applied Device: Bilateral Lower Extremeties
--- NOTE | 2020-06-26 17:03 | HMH.PHAINT ---
MEDICATION RECONCILIATION COMPLETED ON PATIENT USING EXTERNAL FILL HISTORY FROM PHARMACY. -ASHLEY FRANCIS, VANDANAD
[2020-06-26 17:20] LABS: Troponin I 0.02 ng/ml (0.00-0.034)
--- NOTE | 2020-06-26 20:20 | PC.NURSE ---
PATIENT IS A&O X4, LUNGS CLEAR, NIH SCALE WAS NEGATIVE, PULSES EQUAL. PATIENT AMBULATED TO RESTROOM 2X WITH STAND BY ASSIST. STEADY GAIT NOTED. PATIENT TOLERATED MEALS WELL. PATIENT REQUIRED THIS RN TO PHONE MD TO GET ORDER FOR SYMBICORT SINCE HIS SON HAD LEFT IT AT HOME. THIS RN SPOKE WITH DR. CID, ORDERS FOR ALBUTEROL NEBULIZER AND WILL ADDRESS SYMBICORT IN AM WITH PHARMACY. 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 PATIENT'S SON BELIEVES THAT PATIENT IS HAVING ANXIETY. NO OTHER CONCERNS AT THIS TIME.
[2020-06-27 03:59] VITALS: BP 160/93; PULSE 67; RESP 18; TEMP 36.5; O2SAT 95
[2020-06-27 05:20] VITALS: BMI 24.2
--- NOTE | 2020-06-27 06:42 | PC.NURSE ---
Pt is alert and oriented x4. Pt rested well with eyes closed with no complaints. No acute changes noted from previous shift. Tolerates RA well with no c/o SOA. Bilateral lungs noted clear t/o upon auscultation. Denies N/V/D. Ambulates well with standby assist in room. Medium BM reported this shift. Adequate urine output noted via urinal. No edema noted. Refused TEDS. VSS. Remains safe. Call light within reach. Will continue to monitor. Pt's home meds are in locked drawer, needs to be verified with pharm this am.
[2020-06-27 08:00] VITALS: BP 144/80; PULSE 75; RESP 18; TEMP 36.6; O2SAT 96
[2020-06-27 08:02] LABS: Eosinophils # 0.1 K/mm3 (0.0-0.4); Eosinophils % 2.8 % (0.1-12.0); Hematocrit 47.1 % (42.0-52.0); Lymphocytes # 0.9 K/mm3 (0.7-4.5); Lymphocytes % 20.9 % (10-50); Mean Corpuscular HGB Conc 31.8 g/dL (31.8-35.4); Mean Corpuscular Hemoglobin 31.4 pg (27.0-31.2); Mean Corpuscular Volume 98.8 fl (80-94); Mean Platelet Volume 10.4 fl (7.4-10.4); Monocytes # 0.2 K/mm3 (0.1-1.0); Monocytes % 5.7 % (1.7-9.3); Neutrophils # 2.8 K/mm3 (1.8-7.8); Neutrophils % 69.6 % (37.0-80.0); Platelet Count 92 K/mm3 (142-424); Red Blood Count 4.77 M/mm3 (4.60-6.20); Red Cell Distribution Width 12.9 % (11.5-17.5)
[2020-06-27 08:06] LABS: Chloride 104 mmol/L (98-107); Potassium 4.3 mmoL/L (3.5-5.1); Sodium 141 mmol/L (136-145)
[2020-06-27 08:09] LABS: Anion Gap 10.3 mEq/L (5-15); Blood Urea Nitrogen 13 mg/dl (9-20); Calcium 9.2 mg/dl (8.4-10.2); Carbon Dioxide 31 mmol/L (22.0-30.0); Creatinine Clearance Estimated 72 mL/min (50-200); Estimated Glomerular Filt Rate 93 ml/min (>60); GFR (African American) 112 ML/MIN (>60); Glucose 104 mg/dl (74-100)
--- NOTE | 2020-06-27 08:22 | HMH.DCSUM ---
General - General Admission date:: 06/26/20 Discharge date: 06/27/20 HPI HPI: Mr. Garza is an 79-year-old male with history of hypertension who presented to the ER this morning with complaint of right-sided weakness and numbness. States the symptoms began early this morning approximately 4 AM. Though he may have had similar symptoms yesterday as well per his recollection. They were not as severe however. His son was concerned so they brought him to the emergency room for assessment. States he had similar symptoms but not as severe with the previous mini strokes . Denies missing medication, takes his nebivolol at night. Symptoms starting to show some improvement upon arrival to the ER. Work-up consisted of EKG, CT of his head, vitals and basic labs. Noted to have hypertensive emergency with systolic greater than 200. With a dose of labetalol, his blood pressure has responded nicely with improvement/resolution of his right-sided neurologic symptoms. All his medications as prescribed. Denies any other weakness, word finding difficulty, speech difficulty, syncope, change in vision. No headache. Mild chest discomfort on presentation to the ER. No fevers or chills. No neck pain. No associated shortness of breath or cough. No abdominal pain, vomiting or diarrhea. He was admitted to medicine for further management and treatment of TIA. Started on aspirin Lovenox, the Lovenox not given prior to arrival to the floor. On my assessment after the patient arrived to the floor he appeared alert and oriented. Denied any right-sided weakness at this time. Blood pressure improved with systolics 150-160. Hospital Course Hospital Course: 79-year-old gentleman who presented to the ER with right-sided neurologic deficits including weakness and sensory deficits. Symptoms resolved as his blood pressure improved from the hypertensive emergency that he presented with. By the time I examined him after he reached the floor, he had no further deficits on his right side. Strength and sensation were equal bilaterally. Admitted overnight to monitor blood pressure and perform neuro checks if symptoms changed. Patient is remained clinically well and hemodynamically stable. Exam this morning with no appreciable deficits. Awaiting formal assessment by speech and physical therapy per protocol. Anticipate patient will have no further recommendations from these services. Medically stable for discharge home. Continue nebivolol. We will also continue dual antiplatelet therapy with aspirin and Plavix for 21 days and then full dose aspirin daily thereafter. Close follow-up in the outpatient setting for neuro exam and blood pressure modification. Objective Vital signs: Temp Pulse Resp BP Pulse Ox 97.9 F 75 18 144/80 H 96 06/27/20 08:00 06/27/20 08:00 06/27/20 08:00 06/27/20 08:00 06/27/20 08:00 Narrative: - Constitutional no acute distress - *Routine HEENT Exam Head: Present: normocephalic Eye: Present: EOMI, PERRL ENT: Present: mucous membranes moist - *Routine Neck Exam Present: supple. Absent: lymphadenopathy - *Routine Respiratory Exam Present: CTA bilaterally - *Routine Cardiovascular Exam Present: RRR - *Routine Abdominal Exam Present: soft, normoactive bowel sounds. Absent: tenderness - *Routine Extremities Exam Absent: cyanosis, clubbing, edema - *Routine Skin Exam Present: warm. Absent: rash - *Routine Neurological Exam Present: alert, oriented X3, CN II-XII intact, normal reflexes, normal speech. Absent: sensory deficit, motor deficit, pronator drift, altered mental status, facial asymmetry Results Labs on day of discharge: Labs from last 24 hours 06/27/20 06/27/20 06/26/20 07:27 07:27 16:30 WBC 4.0 L RBC 4.77 Hgb 15.0 Hct 47.1 MCV 98.8 H MCH 31.4 H MCHC 31.8 RDW 12.9 Plt Count 92 L MPV 10.4 Neut % (Auto) 69.6 Lymph % (Auto) 20.9 Mon
--- NOTE | 2020-06-27 10:21 | HMH.SLDYSPHA ---
Speech & Language Evaluation Speech/Language Dysphagia Evaluation Start: 06/27/20 10:14 Freq: ONCE Status: Active Protocol: Document 06/27/20 10:14 QUIQUE (Rec: 06/27/20 10:21 QUIQUE [id number]) Dysphagia Assess/Goals/Plan Assessment Date of Evaluation: 06/27/20 Evaluation Type Initial Certification Assessment/Problems TIA Does Patient Qualify for Service No Qualify/Failure Comment Evaluation dictates no deficits in swallowing Recommendations PHYSICIAN CERTIFICATION: The specified therapy services are required, authorized, and reviewed every 30 days. Diet Recommendations Normal Liquid Type Recommendations Normal/Thin Plan Pt/Guardian verbally ack understanding Yes of dx/prognosis/goals G -code Required No General Information General Current Food Consistancy Regular,Thin Liquids Dentition Good Dentition Oxygen Status Room Air Facial Symmetry Symmetrical Patient Orientation Person,Place,Time,Situation Ability to Follow Directions Excellent Communication Ability No Impairment Dysphagia:Food Presentation Evaluation Food Type Pureed,Mechanical Soft,Regular ,Liquid,Pudding Dysphagia Evaluation Summary Mr. Garza was given the following consistencies: thins via straw and open cup, pudding, pureed, mechanical soft, and regular. No signs of dysphagia were noted during the evaluation. At this time, it is recommended he remain on regular diet with thin liquids. No outpatient therapy needed upon discharge. Stroke Dysphagia Assessment PHYSICIAN CERTIFICATION: I certify the specified therapy services for Isaias Garza are required, authorized, and reviewed every 30 days.
--- NOTE | 2020-06-27 11:19 | HMH.PTEV ---
Physical Therapy Evaluation Rehab PT IP Evaluation Start: 06/26/20 15:01 Freq: .once Status: Active Protocol: Document 06/27/20 11:14 HU (Rec: 06/27/20 11:19 HU [id number]) Subjective/History History History PT ADMITTED TO [facility] 79 YO MALE W/TIA Subjective Subjective PT REPORTS INITIAL S/S OF R LE N&T, HOWEVER, NOW REPORTS NO RESIDUAL 'MINI STROKE' S/S. UPON ENTERING ROOM THIS AM FOR P.T. EVAL PT FOUND STANDING IN BATHROOM INDEPENDENTLY WITH IV POLE. Rehab PT IP Eval Objective Appearance Patient Behavior Appropriate,Cooperative Patient Orientation Person,Place,Time,Name, Situation Difficulty following instructions none Speech Pattern Clear,Appropriate Ambulation Patient Able to Ambulate Yes Ambulation Observation IP General Gait Pattern Observation No Deviations/Normal Ambulation Distance (feet) 30 Ambulation Assistive Device None Ambulation Ability Independent Balance Ability to Arise Able, w/o using arms Sitting Balance Steady, safe Standing Balance Narrow stance w/o support Dynamic Sitting Balance Ability Normal Dynamic Standing Balance Ability Normal Transfers Bed Transfer Ability Independent Chair Transfer Ability Independent Sit to Stand Bed Transfer Ability Independent Sit to Stand Chair Transfer Ability Independent ROM All Extremities PT ROM Status WFL MMT All Extremities PT MMT WFL Rehab PT IP prob,goals,plan Problems Date of Evaluation: 06/27/20 Rehab Potential Rehab Potential Innapropriate for Skilled Therapy Discharge Plan PT Discharge Plan PT W/OBJECTIVELY NORMAL/ INDEPENDENT FINDINGS ON PT EVAL, PT SAFE TO RETURN TO HOME W/SPOUSE INDEPENDENTLY W/ DISCHARGE FROM ORDERING PHYSICIAN. G -code Required No Eval Complexity Eval Charge Codes 62303 - Low Complexity PHYSICIAN CERTIFICATION: I certify the specified therapy services for Isaias Garza are required, authorized, and reviewed every 30 days.
--- NOTE | 2020-06-27 15:10 | HMH.PHAINT ---
[id number] MEDICATION COUNSELING COMPLETED CONTACTED DR SKINNER ABOUT ASPIRIN 325 MG DAILY WITH PLAVIX. MD WANTS PATIENT TO TAKE ASPIRIN 81 MG DAILY WITH PLAVIX UNTIL PLAVIX IS STOPPED.
== END 2020-06-27 14:25 | disposition home or self-care (01) ==
LOC: ER 11:16 → 2ND 14:39
PROVIDERS: Admitting Provider Family Medicine; Emergency Provider Emergency Medicine; PCP Internal Medicine Adolescent Medicine; Visit Provider Internal Medicine Adolescent Medicine
DX: I16.0 Hypertensive urgency (principal); I10 Essential (primary) hypertension; G45.9 Transient cerebral ischemic attack, unspecified; R07.9 Chest pain, unspecified; Z79.899 Other long term (current) drug therapy; R06.9 Unspecified abnormalities of breathing
CPT/HCPCS: 70450; 71046; 80048; 80053; 83880; 84484; 85025; 85610; 85730; 86328; 92610; 93005; 96365; 96375; 97161; 99284; G0378

== ENCOUNTER → 2020-07-02 10:52 | Outpatient (CLI) | payer MEDICARE, OTHER, SELFPAY ==
--- NOTE | 2020-07-02 | CA_ITS ---
APPROVED REPORT EXAM: Comprehensive 2D, Doppler, and color-flow Echocardiogram [employer] Driver: Octavia Patrick CRT Ht: 6 ft 3 in Wt: 180lbs BSA: 2.10 BP: 126/68 mmHg Indications: COPD, CVA/TIA, Palpitations, Hypertension/HDD 2D Dimensions LVOT 1.93 cm (M/F) 1.5-2.5 LVEF (Coy's) 43.30 % LV Volume 162.00 mL M-Mode Dimensions RVDd 2.77 cm (0.9-2.6) LA Diam 4.01 cm (1.9-4.0) LVDd 6.26 cm (3.5-5.7) Ao Diam 4.13 cm (2.0-3.7) LVDs 4.29 cm (3.5-5.7) IVSd 1.34 cm (0.6-1.1) PWd 0.98 cm (0.6-1.1) EF (Teich) 58.30% FS 31.50% EDV (Teich) 198.30 mL ESV (Teich) 82.60 mL LV Diastology E Decel Time 653.00 (160-240 msec) E/A Ratio 0.74 MED E' 4.60 (< 7 cm/sec) E'/MED E' Ratio 9.54 (>14) LAT E' 4.30 (<10 cm/sec) E/LAT E' Ratio 10.21 (>14) Aortic Valve AO Peak GR. 5.80 mmHg Mitral Valve MV A Velocity 59.00 (40-130 cm/s) E/A Ratio 0.74 MV Decel. Time 653.00 (160-240 ms) Pulmonary Valve PV Peak Velocity 89.00 (50-150 cm/s) Tricuspid Valve TR P. Velocity 182.00 cm/s RAP Estimate 10.00 mmHg RVSP 23.20 mmHg Left Ventricle Left atrium is mildly enlarged, left ventricle is normal size, mild concentric left ventricular hypertrophy, visually estimated ejection fraction approximately 45%, with no regional wall motion abnormality, grade 1 diastolic dysfunction seen without tissue Doppler evidence of raise left atrial pressure. Right Ventricle Right atrium and right ventricle are mildly enlarged with normal contractility. Aortic Valve Aortic valve is minimally thickened and fibrosed, there is no aortic stenosis or aortic insufficiency. Mitral Valve Mitral valve is grossly normal, there is mild mitral regurgitation. Tricuspid Valve Tricuspid valve is grossly normal, there is mild tricuspid regurgitation, tricuspid regurgitation jet velocity is inadequate for calculation of the right ventricular systolic pressure. Pulmonic Valve Pulmonic valve is poorly visualized. Great Vessels Aortic root is normal size. Pericardium No significant pericardial effusion noted. Conclusion 1. Mild biatrial enlargement, normal left ventricular size, mild concentric left ventricular hypertrophy, visually estimated ejection fraction 45% with no regional wall motion abnormality, grade 1 diastolic dysfunction seen without tissue Doppler evidence of raise left atrial pressure. 2. Mild mitral and tricuspid regurgitation. 3. No significant pericardial effusion noted. Electronically signed by : Isaías Duggan, 07/02/2020 13:43:03
== END ==
PROVIDERS: PCP Internal Medicine Adolescent Medicine; Visit Provider Internal Medicine Adolescent Medicine
DX: G45.9 Transient cerebral ischemic attack, unspecified (principal); R00.2 Palpitations
CPT/HCPCS: 93306

== ENCOUNTER 2020-09-08 20:33 | Emergency (ER) | payer MEDICARE, OTHER, SELFPAY ==
--- NOTE | 2020-09-08 20:38 | XR_ITS ---
PROCEDURE: XR WRIST LT MIN 3V CLINICAL INDICATION: FELL ON ICE Left wrist deformity noted COMPARISON: No exams were available for comparison FINDINGS: There is a mildly comminuted distal radial fracture with posterior angulation. Distal ulna is intact. Fracture line may extend to the distal radial ulnar joint however the DRUJ remains well approximated. Slight increased distance between the scaphoid and lunate could indicate injury to the scapholunate ligament although definite disruption is not visible. Follow-up x-rays may clarify. There is atherosclerotic calcification visible throughout the vasculature. IMPRESSION: Colles fracture with questionable developing scapholunate ligament disruption. Dictated by: Ana Thornton MD 09/09/2020 08:11 Ana Thornton MD in [place] 09/09/2020 08:11
--- NOTE | 2020-09-08 20:39 | XR_ITS ---
PROCEDURE: XR SACRUM COCCYX MIN 2V CLINICAL INDICATION: FELL ON ICE COMPARISON: CR,CT ABDPELW CT ABD PELVIS W/ CONTRAST from 02/03/2015 FINDINGS: The sacrum and coccyx appear intact though the tip of the coccyx is somewhat poorly visualized on this image. The SI joints are normal and the symphysis pubis is normal. IMPRESSION: Grossly negative sacrum and coccyx Dictated by: Dr. Luke Leblanc MD 09/09/2020 08:37 Dr. Luke Leblanc MD in [place] 09/09/2020 08:37
[2020-09-08 20:45] VITALS: BP 139/96; PULSE 76; RESP 19; TEMP 37.2; O2SAT 98; BMI 26.4
--- NOTE | 2020-09-08 21:26 | HMH.EDUTC ---
[facility] [place]: Fracture of left distal radius Qualifiers: Encounter type: initial encounter Fracture type: closed Fracture morphology: unspecified fracture morphology Qualified Code(s): S52.502A - Unspecified fracture of the lower end of left radius, initial encounter for closed fracture Fracture of sacrum Qualifiers: Encounter type: initial encounter Zone of sacrum fracture: unspecified portion of sacrum Fracture type: closed Qualified Code(s): S32.10XA - Unspecified fracture of sacrum, initial encounter for closed fracture Disposition: Home, Self-Care Condition on Discharge: Good Instructions: Wrist Fracture, DI for Wrist Fracture, How to Take Care of Your Splint Additional Instructions: Rest the extremity, apply ice for 15 minutes as tolerated three or four times per day, Wear the splint, Elevate the extremity as tolerated while you are resting. Take ibuprofen for pain. I sent in a prescription to your pharmacy. Follow up with Dr. Howell (orthopedics). You need to call his office first thing in the morning to be seen either tomorrow or the next day. His office number will be on this chart. Follow up with your regular doctor. GO TO THE ER FOR ANY WORSENING SYMPTOMS Prescriptions: Ibuprofen [Ibuprofen 600mg Tablet] 600 mg PO Q6HP PRN #30 tab PRN Reason: Mild Pain Transmission Status: Received by [id number] Referrals: Sebastian Polanco MD [Primary Care Provider] - Jorge Howell MD [Staff Physician] - Time of Disposition: 21:39 Medical Decision Making - Medical Records Medical records reviewed: No: I reviewed the patient's medical records. - Jamir Inquiry Pt receiving controlled substance: No Vital Signs: 09/08/20 20:45 09/08/20 21:51 Temperature 98.9 F 98.9 F Temperature Source Oral Pulse Rate 76 Pulse Rate [Right Brachial] 76 Respiratory Rate 19 19 Blood Pressure 139/96 H Blood Pressure [Right Arm] 139/96 H Blood Pressure Mean [Right Arm] 110 Blood Pressure Source [Right Arm] Automatic Cuff Blood Pressure Position [Right Arm] Sitting 02 Sat by Pulse Oximetry 98 Oxygen Delivery Method Room Air [facility] [place] - General Stated complaint: fell injured Left wrist and tail bone Time Seen by Provider: 09/08/20 20:55 Mode of Arrival: Ambulatory Source of Information: Patient Limitations: No Limitations Description of Symptoms (Recalled from Triage Doc. by RN): PATIENT C/O INJURY TO LEFT WRIST AND TAIL BONE AFTER FALLING ON ICE AT APPROX 1830 TODAY HEENT Symptoms (Recalled from RN notes): No Resp Symptoms (Recalled from RN notes): No Skin Symptoms (Recalled from RN notes): No MS Symptoms (Recalled from RN notes): Yes Functional Status (Recalled from RN notes): WNL - History of Present Illness Provider Complaint: He fell on ice earlier this evening at around 1830. He states that since then he has had left wrist pain and tail bone pain. His wrist is swollen and painful to touch or move. - Related Data Home Medications Medication Instructions Recorded Confirmed Aspirin [Aspirin 325mg Tab] 325 mg PO DAILY 09/01/17 06/26/20 Budesonide/Formoterol Fumarate 2 puff IH BID 09/01/17 06/26/20 [Symbicort 80-4.5 Mcg Inhaler] Doxazosin Mesylate [Doxazosin 2mg 2 mg PO BID 09/01/17 06/26/20 Tab] Nebivolol HCl [Bystolic] 5 mg PO HS 06/26/20 06/26/20 Oxybutynin Chloride [Oxybutynin 5 mg PO DAILY 06/26/20 06/26/20 Chloride ER] Previous Rx's Medication Instructions Recorded Clopidogrel Bisulfate [Plavix 75mg 75 mg PO DAILY 21 Days #21 tab 06/27/20 Tab] Ibuprofen [Ibuprofen 600mg 600 mg PO Q6HP PRN #30 tab 09/08/20 Tablet] Allergies Allergy/AdvReac Type Severity Reaction Status Date / Time acetaminophen [From [place]] Allergy Verified 06/26/20 09:25 hydrocodone [From [place]] Allergy Verified 06/26/20 09:25 - Worker's Comp Is this a Worker's Comp case?: No [facility] History - Hepatitis A Screen Drug use history
[2020-09-08 21:51] VITALS: BP 139/96; PULSE 76; RESP 19; TEMP 37.2; O2SAT 98
== END 2020-09-08 21:53 | disposition home or self-care (01) ==
PROVIDERS: Emergency Provider Nurse Practitioner Family; PCP Internal Medicine Adolescent Medicine
DX: S52.502A Unspecified fracture of the lower end of left radius, initial encounter for closed fracture (principal); S32.10XA Unspecified fracture of sacrum, initial encounter for closed fracture; W00.0XXA Fall on same level due to ice and snow, initial encounter; Y92.89 Other specified places as the place of occurrence of the external cause; I10 Essential (primary) hypertension; J45.909 Unspecified asthma, uncomplicated; Z79.899 Other long term (current) drug therapy
CPT/HCPCS: 29125; 72220; 73110; 99203; G0463

== ENCOUNTER → 2020-09-10 15:10 | Outpatient (CLI) | payer MEDICARE, OTHER, SELFPAY ==
--- NOTE | 2020-09-10 15:24 | XR_ITS ---
PROCEDURE: XR CHEST 2V CLINICAL HISTORY: hypertension; preop COMPARISON: CR CXR1 CHEST-PORTABLE from 02/24/2017 CR CXR1VP XR chest portable from 09/01/[address] angio chest from 01/09/2018 CR XR CHEST 2V from 06/26/2020 FINDINGS: The cardiomediastinal silhouette and pulmonary vascularity are within normal limits. The lungs are clear without infiltrates, suspicious nodules, or pleural effusions. There are mild multilevel degenerate changes of the mid lower thoracic spine. No acute bony abnormalities. IMPRESSION: No acute findings. Dictated by: Dr. Luke Leblanc MD 09/10/2020 17:36 Dr. Luke Leblanc MD in [place] 09/10/2020 17:36
[2020-09-10 15:52] LABS: Basophils % 0.5 % (0.1-2.0); Eosinophils # 0.2 K/mm3 (0.0-0.4); Hematocrit 44.1 % (42.0-52.0); Hemoglobin 14.3 g/dL (14.1-18.0); Lymphocytes # 0.9 K/mm3 (0.7-4.5); Lymphocytes % 16.1 % (10-50); Mean Corpuscular HGB Conc 32.4 g/dL (31.8-35.4); Mean Corpuscular Hemoglobin 31.3 pg (27.0-31.2); Mean Corpuscular Volume 96.4 fl (80-94); Mean Platelet Volume 9.7 fl (7.4-10.4); Monocytes # 0.4 K/mm3 (0.1-1.0); Neutrophils # 4.3 K/mm3 (1.8-7.8); Neutrophils % 74.3 % (37.0-80.0); Platelet Count 121 K/mm3 (142-424); Red Blood Count 4.58 M/mm3 (4.60-6.20); Red Cell Distribution Width 13.1 % (11.5-17.5); White Blood Count 5.8 K/mm3 (4.8-10.8)
--- NOTE | 2020-09-10 15:55 | ECG_ITS ---
APPROVED REPORT Exam: Resting ECG HR:73 bpm ECG Measurements Heart Rate 73 AXES NV 160 P 77 QRSd 98 QRS -56 QT 396 T 68 QTc 436 Conclusion Sinus rhythm with frequent and consecutive premature ventricular complexes Left axis deviation Abnormal ECG Electronically signed by : Sebastian Polanco, 09/10/2020 20:09:21
[2020-09-10 17:23] LABS: Chloride 104 mmol/L (98-107); Potassium 4.8 mmoL/L (3.5-5.1); Sodium 139 mmol/L (136-145)
[2020-09-10 17:25] LABS: Blood Urea Nitrogen 16 mg/dl (9-20); Estimated Glomerular Filt Rate 93 ml/min (>60); GFR (African American) 112 ML/MIN (>60)
[2020-09-10 17:26] LABS: Alanine Aminotransferase 24 U/L (12-78); Albumin Level 4.1 g/dl (3.5-5.0); Albumin/Globulin Ratio 1.6 (1.1-1.8); Alkaline Phosphatase 85 U/L (38-126); Anion Gap 8.8 mEq/L (5-15); Aspartate Amino Transferase 37 U/L (17-59); Bilirubin,Total 0.7 mg/dl (0.2-1.3); Calcium 9.4 mg/dl (8.4-10.2); Carbon Dioxide 31 mmol/L (22.0-30.0); Globulin 2.5 g/dL (1.3-3.2); Glucose 103 mg/dl (74-100); Total Protein,Serum 6.6 g/dl (6.3-8.2)
[2020-09-10 17:51] LABS: Coronavirus 19 IgG Antibody Negative (Negative); Coronavirus 19 IgM Antibody Negative (Negative)
== END ==
PROVIDERS: Visit Provider Orthopaedic Surgery
DX: Z01.818 Encounter for other preprocedural examination (principal); Z20.822 Contact with and (suspected) exposure to COVID-19; S52.532A Colles' fracture of left radius, initial encounter for closed fracture; S39.92XA Unspecified injury of lower back, initial encounter
CPT/HCPCS: 36415; 71046; 80053; 85025; 86328; 93005

== ENCOUNTER 2020-09-13 06:09 | Day surgery (SDC) | payer MEDICARE, OTHER, SELFPAY ==
[2020-09-13] VITALS (12 sets, daily range): BP systolic 132–170; BP diastolic 75–100; PULSE 65–79; RESP 12–18; TEMP 36.2–43; O2SAT 93–97; BMI 25.0
--- NOTE | 2020-09-13 | XR_ITS ---
PROCEDURE: XR WRIST LT 2V CLINICAL INDICATION: ORIF LEFT WRIST- [place] COMPARISON: No exams were available for comparison FINDINGS: Fluoroscopy time is 1 minutes and 29 seconds. Volar bone plate is placed at the distal radius with multiple cortical screws with good alignment IMPRESSION: Good alignment status post ORIF distal radial fracture Dictated by: Orlando Sena MD 09/13/2020 16:13 Orlando Sena MD in [place] 09/13/2020 16:13
--- NOTE | 2020-09-13 08:03 | HMH.ANESCL ---
[facility] Anesthesia Checklist - Structural Data Admitted From: Home Planned Operative Procedure/s: orif l wrist Consent for Planned Operative Procedure(s) Verified: Yes - Additional verifications Anesthesia Reactions: No Hx Blood Transfusions: Yes Blood Transfusion Reaction: No - Airway Assessment C-Spine Mobility Assessed: Yes TMJ Mobility Assessed: Yes Dentition: Dentures-good fit - Neurological Assessment Level of Consciousness: Awake, Alert, Appropriate - Anesthesia Plan Anesthesia Risk discussed: Yes Anesthesia Plan: Verified ASA Class: II Anesthesia Type: General w/block [facility] History I have reviewed the patient's past medical history: Yes Medical History: Reports:: Asthma, Deep Vein Thrombosis, Hypertension, Lung Disease Denies:: Cancer, Diabetes Mellitus Type 1, Diabetes Mellitus Type 2, Internal Pacemaker, MRSA, Seizures *Have you ever received a pneumonia vaccine?: Yes *Have you received a flu vaccine this season?: Yes Other Medical History: Reports: Arthritis. Denies: Blood Transfusion Reaction Anesthesia experience/problems:: none Laterality Cases: Right: Arthroscopy Shoulder Other Surgeries: Yes: Colonoscopy, Colon Resection, Hernia Repair. No: Pacemaker Amputation: No Fractures: Yes (left wrist) - *Social History Last grade of school completed: 7th or 8th Smoking Status: Never smoker Alcohol Intake: never Alcohol Intake Frequency:: other Substance Use Type: denies use *Occupational Status:: employed Housing: house Household Members: spouse *Travel in the last 8 weeks: None Family Hx:: Asthma, Cancer, Coronary Artery Disease, Diabetes, Hyperlipidemia, Hypertension
--- NOTE | 2020-09-13 09:55 | P.PN_ITS ---
[facility] Anesthesia Record Part I Intake, IV Amount: 1,200 Estimated blood loss (mL): 10 Urine output (mL): 0 Blood Pressure: 170/100 SaO2: 95 Pulse Rate: 66 Respiratory Rate: 12 Temperature: 97.5 F Patient is:: Awake, Stable Stable to PACU at:: 09:50
--- NOTE | 2020-09-13 11:26 | HMH.OPNOTE ---
Date of procedure: 09/13/20 Pre-op Diagnosis:: Closed, comminuted, displaced intra-articular fracture, LEFT distal radius Post-op Diagnosis:: Same Procedure performed:: Open reduction and internal fixation LEFT distal radius with volar locking plate. 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 Evaluation including x-rays of the left wrist showed a closed, comminuted and displaced intra-articular fracture of the left distal radius. There is dorsal displacement and angulation with of the radius, loss of radial inclination and loss of the normal volar tilt of the distal radius. The fracture is extending into the radiocarpal and distal radial ulnar joints. Following a detailed discussion with the patient about the management options including both nonsurgical and surgical, patient elected to proceed with surgical remediation. Please refer to my office note for full details. Operative findings:: Displaced, comminuted and unstable intra-articular fracture of the left distal radius as noted on the preoperative x-rays. The fracture is reduced anatomically and fixed in a stable fashion with your locking plate and screws. Bone quality is good. Operative note:: After appropriate workup, the patient was brought to the hospital for surgery. On the day of surgery, I met the patient in the preoperative area and again discussed the details of the procedure, risks and benefits, alternatives and the expected outcomes. The complications discussed include but are not limited to infection, bleeding, injury to nerves, tendons and blood vessels, incisional scar (cosmesis), DVT/PE, malunion, nonunion/delayed union, loss of position, refracture, wrist/finger stiffness, CRPS (complex regional pain syndrome- pain, sensory and temperature changes, swelling and stiffness), painful/prominent hardware, loss of fixation/hardware failure, incomplete relief of pain, incomplete return of function, posttraumatic arthritis and likely need for further surgery in future and also the risks of anesthesia including heart attack, stroke, and . I have discussed how there is a small but real possibility of loss of use of the arm, loss of the limb or loss of life itself. I have also explained how additional surgery may be required if there are any complications or the fracture fails to heal. We have also discussed the postoperative pain management, recovery and rehabilitation, immobilization required, the likely need for physical therapy, the possibility of stiffness, chronic pain and we've also discussed the option of nonsurgical treatment. Patient expressed a full understanding and wished to proceed with surgery as planned. The operative site/side was marked and initialed by me. Patient understood the risks, agreed to proceed with surgery and no guarantees or assurances were given or implied. Patient was brought to the operating room and placed supine on the table. The left upper extremity was placed over an arm table. All the bony prominences were well padded. A general anesthesia was administered by the install technician. Prior to that patient also received a supraclavicular nerve block in the preanesthetic area. A well-padded tourniquet cuff was applied over the left upper arm. The left upper extremity was prepped and draped in the usual sterile fashion. A preprocedure timeout was performed as per hospital protocol. Administration of prophylactic IV antibiotics (2 g of IV Ancef) was confirmed prior to starting the procedure. The skin incision was marked over the distal forearm anteriorly for the extended FCR volar approach to distal radius. I used Tajik finger traps and 7
[2020-09-14 09:02] VITALS: BP 144/87; PULSE 66; TEMP 36.4
--- NOTE | 2020-09-14 09:02 | HMH.ANESII ---
[facility] Anesthesia Record Part II Discharge Time: 10:20 Destination: Surgical Day Care (OP Surgery) PACU nurse assessment reviewed?: Yes Patient Condition:: Good Anesthesia Complications:: None Swallowing reflex intact?: Yes Cyanosis?: No Blood Pressure: 144/87 Pulse Rate: 66 Temperature: 97.5 F Mental Status: Alert & Oriented Pain level:: 0 Nausea and/or vomitting:: None Intake, IV Amount: 0
== END 2020-09-13 11:40 | disposition home or self-care (01) ==
LOC: OR 06:12
PROVIDERS: PCP Internal Medicine Adolescent Medicine; Visit Provider Orthopaedic Surgery
PROC: (CPT 25608; principal; 2020-09-13 07:00)
DX: S52.572A Other intraarticular fracture of lower end of left radius, initial encounter for closed fracture (principal); W00.0XXA Fall on same level due to ice and snow, initial encounter; Z91.81 History of falling; Y92.018 Other place in single-family (private) house as the place of occurrence of the external cause; Z79.899 Other long term (current) drug therapy; Z88.8 Allergy status to other drugs, medicaments and biological substances
CPT/HCPCS: 25608; 73100; 76000; 96374; C1713; C1769; C1776; J2405

== ENCOUNTER → 2020-09-17 10:34 | Outpatient (CLI) | payer MEDICARE, OTHER, SELFPAY ==
--- NOTE | 2020-09-17 10:39 | XR_ITS ---
PROCEDURE: XR WRIST LT MIN 3V CLINICAL INDICATION: sp ORIF LT wrist, dos 09/13/20 Follow-up surgery COMPARISON: CR XR WRIST LT MIN 3V from 09/08/2020 FINDINGS: Status post ORIF distal radius with volar bone plate present. There is good alignment. There is an overlying cast present. The previously noted impacted fragments have improved now with good alignment and no foreshortening. IMPRESSION: Good alignment status post ORIF distal radial fracture. Dictated by: Orlando Sena MD 09/17/2020 16:08 Orlando Sena MD in [place] 09/17/2020 16:08
== END ==
PROVIDERS: PCP Internal Medicine Adolescent Medicine; Visit Provider Orthopaedic Surgery
DX: Z09 Encounter for follow-up examination after completed treatment for conditions other than malignant neoplasm (principal); S52.532D Colles' fracture of left radius, subsequent encounter for closed fracture with routine healing; S39.92XD Unspecified injury of lower back, subsequent encounter
CPT/HCPCS: 73110

== ENCOUNTER → 2020-10-05 10:40 | Outpatient (CLI) | payer MEDICARE, OTHER, SELFPAY ==
--- NOTE | 2020-10-05 10:44 | XR_ITS ---
PROCEDURE: XR WRIST LT MIN 3V CLINICAL INDICATION: sp ORIF LT wrist, sx 09/13/20; out of cast Follow-up surgery COMPARISON: CR XR WRIST LT MIN 3V from 09/08/2020 CR XR WRIST LT MIN 3V from 09/17/2020 FINDINGS: Good alignment status post ORIF distal radial fracture with volar bone plate in place. The cast has been removed. There is diffuse vascular calcification. IMPRESSION: Good alignment status post ORIF distal radial fracture Dictated by: Orlando Sena MD 10/05/2020 15:48 Orlando Sena MD in [facility] 10/05/2020 15:48
== END ==
PROVIDERS: PCP Internal Medicine Adolescent Medicine; Visit Provider Orthopaedic Surgery
DX: Z09 Encounter for follow-up examination after completed treatment for conditions other than malignant neoplasm (principal); S52.502A Unspecified fracture of the lower end of left radius, initial encounter for closed fracture
CPT/HCPCS: 73110

== ENCOUNTER 2020-10-05 11:15 | Outpatient (RCR) | payer MEDICARE, OTHER, SELFPAY | END 2020-10-05 12:00 | disposition home or self-care (01) | LOC: OT 11:15 | PROVIDERS: Visit Provider Orthopaedic Surgery | DX: S52.502A Unspecified fracture of the lower end of left radius, initial encounter for closed fracture (principal) | CPT/HCPCS: 97763 ==

== ENCOUNTER → 2020-11-02 08:20 | Outpatient (CLI) | payer MEDICARE, OTHER, SELFPAY ==
--- NOTE | 2020-11-02 08:24 | XR_ITS ---
PROCEDURE: XR WRIST LT MIN 3V CLINICAL INDICATION: ORIF lt wrist/ s/p 09/13/2020 Follow-up ORIF left wrist COMPARISON: CR XR WRIST LT MIN 3V from 09/08/2020 CR XR WRIST LT MIN 3V from 09/17/2020 CR XR WRIST LT MIN 3V from 10/05/2020 FINDINGS: Volar bone plate is present along the distal radius with good alignment of the distal radial fracture. Fracture line is less apparent posteriorly. There remains good alignment Vascular calcifications are noted. Other findings:None. IMPRESSION: Good alignment status post ORIF healing distal radial fracture Dictated by: Orlando Sena MD 11/02/2020 16:20 Orlando Sena MD in [place] 11/02/2020 16:20
== END ==
PROVIDERS: PCP Internal Medicine Adolescent Medicine; Visit Provider Orthopaedic Surgery
DX: S52.502A Unspecified fracture of the lower end of left radius, initial encounter for closed fracture (principal)
CPT/HCPCS: 73110

== ENCOUNTER 2020-11-30 10:00 | Outpatient (RCR) | payer MEDICARE, OTHER, SELFPAY ==
--- NOTE | 2020-10-12 11:06 | HMH.OTOPEV ---
OT Inpatient Evaluation Rehab OT Outpatient Eval Start: 10/12/20 10:00 Freq: Status: Active Protocol: Document 10/12/20 10:00 RMARSHALL (Rec: 10/12/20 10:18 RMARSHALL [id number]) Electronically Signed By Raymundo Ortiz OT 10/12/20 10:00 Outpatient Therapy Subjective History Subjective History Pt seen this date for initial evaluation. Pt reports he fell on ice resulting in a L distal radius Fx. Pt is s/p ORIF on 09/13/20. Pt presents w / a 7cm scar on L anterior wrist. Pt claims he does not have any pain at all, just some sweling at times. Pt will continue to be seen twice a week in order to address all left wrist deficits. 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, Decreased Coordination Prior Functional Limitations None Current Functional Limitations Reaching,Lifting,Housework, Dressing Level of pain today (0-10) 0 Pain scale - at its best (0-10) 0 Pain scale - at its worst (0-10) 0 Wrist/Hand Eval Wrist Range of Motion Left Wrist Extension Active Range of Motion ( 40 degrees) Wrist Flexion Active Range of Motion ( 30 degrees) Wrist Radial Deviation Active Range of 25 Motion (degrees) Wrist Ulnar Deviation Active Range of 20 Motion (degrees) Wrist Manual Muscle Testing Left Wrist Extension Strength Grade 3- Fair- Wrist Flexion Strength Grade 3- Fair- Wrist Radial Deviation Strength Grade 3- Fair- Wrist Ulnar Deviation Strength Grade 3- Fair- OT Outpatient Assessment Impairments Problems/Impairments Impaired Range of Motion, Impaired Strength,Impaired Endurance,Impaired Lifting, Impaired Dressing,Increased Edema Prognosis Rehab Potential Good Clinical Impression Consistent with Diagnosis Yes Short Term Goals Number of Weeks 3 Increase Range of Motion Yes: F: 45, E: 55, UD: 35 Increase Strength Yes: MMT of 3+ or 4/5 throughout Increase Endurance Yes: Pt will tolerate ~10 min of exercise prior to rest Patient to be Ind w/ HEP Yes: wrist ROM exercises [facility] Goals Number of Weeks 6 Increase Range of Motion Yes: F: 65, E: 70 Increase Strengt
--- NOTE | 2020-11-08 09:46 | HMH.RHREAS ---
Rehab Reassessment Rehab OP Re-assessment Start: 11/08/20 08:59 Freq: Status: Active Protocol: Document 11/08/20 08:59 EDITH (Rec: 11/08/20 09:46 EDITH [id number]) Electronically Signed By Raymundo Ortiz OT 11/08/20 08:59 Rehab Re-assessment Subjective Subjective I don't have pain and I can do what I need to. Objective Objective Notes Pt continues to be seen twice weekly in order to address left wrist deficits. Each session, pt receives scar massage and prom manual stretching to left wrist in flexion, extension, RD, and UD ; 10 reps, 1 set, 5 second holds. Pt does engage in strengthening exercises at left wrist to increase strength. Modalities are provided to decrease discomfort/swelling. Assessment Progress Assessment Progressing as Expected Assessment Notes Overall, pt is doing very well with his left wrist. Pt reports he is able to complete all desired activities without any pain or problems. Pt has shown some improvement with AROM and strength since initial evaluation. He continues to report 0/10 pain at left wrist, even during activity. Pt reports surgeon was pleased with progress. Current AROM/MMT Flex: 46 degrees; 3+ Ext: 48 degrees; 3 RD: 25 degrees; 3+ UD: 24 degrees; 3+ Patient goals met ST, 3, & 4 Goals Not Met see below Revised Goals ST LT-4 Plan Plan Continue with OT plan of care at this time. Frequency of Therapy 2x's a week Duration of therapy 4 more weeks Time and Billing Re-Eval Time 10 Re-Eval Billing Units 1 PHYSICIAN CERTIFICATION: I certify the specified therapy services for Isaias Garza are required, authorized, and reviewed every 30 days.
== END 2020-11-30 10:05 | disposition home or self-care (01) ==
LOC: OT 10:00
PROVIDERS: PCP Internal Medicine Adolescent Medicine; Visit Provider Orthopaedic Surgery
DX: S52.502D Unspecified fracture of the lower end of left radius, subsequent encounter for closed fracture with routine healing (principal)
CPT/HCPCS: 97010; 97035; 97110; 97140; 97164; 97166

== ENCOUNTER → 2020-12-14 08:52 | Outpatient (CLI) | payer MEDICARE, OTHER, SELFPAY ==
--- NOTE | 2020-12-14 08:58 | XR_ITS ---
PROCEDURE: XR WRIST LT MIN 3V CLINICAL INDICATION: sp ORIF LT wrist, sx 09/13/20 COMPARISON: CR XR WRIST LT MIN 3V from 09/08/2020 CR XR WRIST LT MIN 3V from 09/17/2020 CR XR WRIST LT MIN 3V from 10/05/2020 CR XR WRIST LT MIN 3V from 11/02/2020 FINDINGS: Volar bone plate is present with good alignment of the distal radius with a healing distal radial fracture once again noted. Fracture lines are less visible There is diffuse vascular calcification Other findings:None. IMPRESSION: Good alignment healing distal radial fracture status post ORIF Dictated by: Orlando Sena MD 12/14/2020 12:38 Orlando Sena MD in [facility] 12/14/2020 12:38
== END ==
PROVIDERS: PCP Internal Medicine Adolescent Medicine; Visit Provider Orthopaedic Surgery
DX: Z09 Encounter for follow-up examination after completed treatment for conditions other than malignant neoplasm (principal); S52.532D Colles' fracture of left radius, subsequent encounter for closed fracture with routine healing
CPT/HCPCS: 73110

== ENCOUNTER → 2021-05-05 15:25 | Outpatient (CLI) | payer MEDICARE, OTHER, SELFPAY ==
[2021-05-05 15:49] LABS: Basophils # 0.1 K/mm3 (0-0.2); Basophils % 1.2 % (0.1-2.0); Eosinophils # 0.1 K/mm3 (0.0-0.4); Eosinophils % 2.7 % (0.1-12.0); Hematocrit 43.8 % (42.0-52.0); Hemoglobin 14.6 g/dL (14.1-18.0); Lymphocytes # 0.9 K/mm3 (0.7-4.5); Mean Corpuscular HGB Conc 33.2 g/dL (31.8-35.4); Mean Corpuscular Hemoglobin 32.8 pg (27.0-31.2); Mean Corpuscular Volume 98.6 fl (80-94); Mean Platelet Volume 10.3 fl (7.4-10.4); Monocytes # 0.3 K/mm3 (0.1-1.0); Monocytes % 5.4 % (1.7-9.3); Neutrophils # 3.6 K/mm3 (1.8-7.8); Neutrophils % 72.7 % (37.0-80.0); Platelet Count 143 K/mm3 (142-424); Red Blood Count 4.44 M/mm3 (4.60-6.20); Red Cell Distribution Width 13.3 % (11.5-17.5); White Blood Count 4.9 K/mm3 (4.8-10.8)
[2021-05-05 17:09] LABS: Alanine Aminotransferase 33 U/L (12-78); Albumin Level 3.9 g/dl (3.5-5.0); Albumin/Globulin Ratio 1.6 (1.1-1.8); Alkaline Phosphatase 89 U/L (38-126); Anion Gap 5.3 mEq/L (5-15); Aspartate Amino Transferase 44 U/L (17-59); Bilirubin,Total 0.5 mg/dl (0.2-1.3); Blood Urea Nitrogen 15 mg/dl (9-20); Calcium 9.1 mg/dl (8.4-10.2); Carbon Dioxide 33 mmol/L (22.0-30.0); Chloride 106 mmol/L (98-107); Chol/HDL Ratio 3.1 (1-3.5); Cholesterol 153 mg/dl (140-200); Estimated Glomerular Filt Rate 129 ml/min (>60); GFR (African American) 156 ML/MIN (>60); Globulin 2.4 g/dL (1.3-3.2); Glucose 109 mg/dl (74-100); HDL Cholesterol 49 mg/dl (40-60); Potassium 4.3 mmoL/L (3.5-5.1); Sodium 140 mmol/L (136-145); Total Protein,Serum 6.3 g/dl (6.3-8.2); Triglycerides 84 mg/dl (30-150); VLDL Cholesterol 17 mg/dL (0-40)
[2021-05-05 17:20] LABS: Direct LDL Cholesterol 83.11 mg/dL (100-129)
[2021-05-05 17:42] LABS: Thyroid Stimulating Hormone 1.44 uIU/mL (0.465-4.68)
== END ==
PROVIDERS: Visit Provider Internal Medicine Adolescent Medicine
DX: I50.20 Unspecified systolic (congestive) heart failure (principal); I11.0 Hypertensive heart disease with heart failure
CPT/HCPCS: 36415; 80053; 80061; 84443; 85025

== ENCOUNTER 2023-05-01 11:00 | Outpatient (RCR) | payer MEDICARE, OTHER, SELFPAY | END 2023-05-02 16:20 | disposition home or self-care (01) | LOC: PT 11:00 | PROVIDERS: PCP Internal Medicine Adolescent Medicine; Visit Provider Psychiatry & Neurology Neurology | DX: R26.9 Unspecified abnormalities of gait and mobility (principal); R26.81 Unsteadiness on feet | CPT/HCPCS: 97110; 97112; 97163; 97164; 97530 ==

== ENCOUNTER 2024-06-02 09:30 | Outpatient (CLI) | payer MEDICARE, OTHER, SELFPAY | END 2024-06-02 23:59 | disposition home or self-care (01) | LOC: LAB.DROPOF 06-03 08:52 | PROVIDERS: PCP Nurse Practitioner; Visit Provider Nurse Practitioner | DX: B35.1 Tinea unguium (principal) | CPT/HCPCS: 87102; 87206 ==

== ENCOUNTER 2024-06-08 12:21 | Inpatient (IN) | payer MEDICARE, OTHER, SELFPAY ==
[2024-06-08] VITALS (14 sets, daily range): BP systolic 106–145; BP diastolic 63–100; PULSE 89–117; RESP 16–26; TEMP 36.1–37.2; O2SAT 82–99; BMI 23.0; BMI 24.3
--- NOTE | 2024-06-08 12:42 | ECG_ITS ---
APPROVED REPORT Exam: Resting ECG HR:113 bpm ECG Measurements Heart Rate 113 AXES QRSd 116 QRS -78 QT 317 T 65 QTc 384 Conclusion Atrial tachycardia, difficult to discern electrical focus ST depressions without reciprocal elevations Electronically signed by : SANJEEV DHILLON, 06/08/2024 19:43:56
--- NOTE | 2024-06-08 12:44 | PC.NURSE ---
pt now on 4lnc 93%
--- NOTE | 2024-06-08 12:45 | CT_ITS ---
PROCEDURE INFORMATION: Exam: CTA Chest With Contrast Exam date and time: 06/08/2024 2:21 PM Age: 83 years old Clinical indication: Injury or trauma; Fall; Blunt trauma (contusions or hematomas); Additional info: Found down TECHNIQUE: Imaging protocol: Computed tomographic angiography of the chest with contrast. Exam focused on the arteries. 3D rendering (Not supervised by radiologist): MIP and/or 3D reconstructed images were created by the technologist. Radiation optimization: All CT scans at this facility use at least one of these dose optimization techniques: automated exposure control; mA and/or kV adjustment per patient size (includes targeted exams where dose is matched to clinical indication); or iterative reconstruction. Contrast material: ISOVU E370; Contrast volume: 80 ml; Contrast route: INTRAVENOUS (IV); COMPARISON: CT ANGIO ABDOMEN PELVIS 06/08/2024 2:21 PM FINDINGS: Pulmonary arteries: Normal. No pulmonary emboli. Aorta: Unremarkable. No aortic aneurysm. No aortic dissection. Lungs: Poorly defined ground-glass opacity in right upper lobe. Underlying pulmonary parenchymal cysts/bronchiectasis. Pleural spaces: Unremarkable. No pneumothorax. No pleural effusion. Heart: Unremarkable. No cardiomegaly. No pericardial effusion. Lymph nodes: Unremarkable. No enlarged lymph nodes. Bones/joints: Unremarkable. No acute fracture. Soft tissues: Unremarkable. IMPRESSION: 1. No acute findings associated with trauma identified. 2. Poorly defined right upper lobar ground-glass opacity favoring infectious/inflammatory etiology. Consider follow-up to document resolution on treatment.
--- NOTE | 2024-06-08 12:45 | CT_ITS ---
PROCEDURE INFORMATION: Exam: CTA Neck With Contrast Exam date and time: 06/08/2024 2:17 PM Age: 83 years old Clinical indication: Injury or trauma; Fall; Blunt trauma; Head and neck; Additional info: Found down TECHNIQUE: Imaging protocol: Computed tomographic angiography of the neck with contrast. Exam focused on the cervical segments of the vasculature. 3D rendering (Not supervised by radiologist): MIP and/or 3D reconstructed images were created by the technologist. Radiation optimization: All CT scans at this facility use at least one of these dose optimization techniques: automated exposure control; mA and/or kV adjustment per patient size (includes targeted exams where dose is matched to clinical indication); or iterative reconstruction. Contrast material: ISOVUE 370; Contrast volume: 80 ml; Contrast route: INTRAVENOUS (IV); COMPARISON: CT CERVICAL SPINE WO CON 06/08/2024 2:09 PM FINDINGS: Right common carotid artery: No significant stenosis. No dissection or occlusion. Right internal carotid artery: Extracranial segment is patent with no significant stenosis. No dissection or occlusion. Mild calcifications in the right carotid bulb and bifurcation. Right external carotid artery: No occlusion or significant stenosis. Left common carotid artery: No significant stenosis. No dissection or occlusion. Left internal carotid artery: Extracranial segment is patent with no significant stenosis. No dissection or occlusion. Mild calcifications within the left carotid bulb and bifurcation. Left external carotid artery: No occlusion or significant stenosis. Right vertebral artery: No significant stenosis. No dissection or occlusion. Left vertebral artery: No significant stenosis. No dissection or occlusion. Aorta: Mild atherosclerotic calcification demonstrated within the aorta. Other arteries: Mild right-sided carotid arterial vascular wall calcifications are demonstrated. Mild left-sided carotid arterial vascular wall calcifications are demonstrated. Brain: Refer to the recently performed head imaging for intracranial findings. Teeth: Missing dentition is demonstrated. Soft tissues: Unremarkable. Bones/joints: Diffusely decreased bone density. Moderate to severe generalized bony degenerative changes. Multilevel disc and osteophyte complexes with moderate to severe central canal and foraminal narrowing within the cervical spine. Moderate to severe bony degenerative changes involving the anterior cervical cranial junction. Lungs: Pulmonary emphysema identified within the lungs. Interstitial and alveolar consolidation opacities within the right perihilar upper lobe extending to the posterior lateral superior right upper lobe. Cystic changes, cavitation identified in the right upper lung with cavitation measuring up to 2.4 cm. Evidence for lung calcified granulomas in the bilateral chest. Pleural and lung parenchymal linear scarring identified within bilateral apices. Noncalcified incidental lung nodules identified. Lung nodules measurement and location: Multiple bilateral lung nodules within the visualized upper lungs measuring up to 6 mm. No visualized lung mass. Other findings: Limited study with motion artifact. IMPRESSION: 1. No significant cervical carotid stenosis or occlusion. 2. Patent bilateral vertebral arteries. 3. Pulmonary emphysema. 4. Right upper lobe pneumonia with cavitation. 5. Indeterminate bilateral lung nodules measuring up to 6 mm. Possible metastatic malignancy. 6. Chronic findings. For patients at low risk (minimal or absent history of smoking and of other known risk factors), recommend CT Chest at 3-6 months, then consider CT Chest at 18-24 months. For patients at high risk (history of smoking or of other known risk factors), recommend CT Chest at 3-6 months, then CT Chest at 18-24 months. (Reference: Brian) References: Brian Cancino, et al. Guidelines for Management of Incidental Pulmonary Nodules Detected on CT Images: From the Fleischner Society 2017. Radiology. 2017;284(1):228-243. REFERENCES: NASCET CRITERIA. The degree of stenosis in the cervical segment of the internal carotid artery is based on NASCET criteria. Normal is no stenosis. Mild is less than 50% stenosis. Moderate is 50-69% stenosis. Severe is 70% to 99% stenosis. Total occlusion is no detectable patent lumen.
--- NOTE | 2024-06-08 12:45 | CT_ITS ---
PROCEDURE INFORMATION: Exam: CTA Head With Contrast, Arteriography Exam date and time: 06/08/2024 2:17 PM Age: 83 years old Clinical indication: Injury or trauma; Fall; Blunt trauma; Head and neck; Additional info: Found down TECHNIQUE: Imaging protocol: Computed tomographic angiography of the head with contrast. Exam focused on the arteries. 3D rendering (Not supervised by radiologist): MIP and/or 3D reconstructed images were created by the technologist. Radiation optimization: All CT scans at this facility use at least one of these dose optimization techniques: automated exposure control; mA and/or kV adjustment per patient size (includes targeted exams where dose is matched to clinical indication); or iterative reconstruction. Contrast material: ISOVUE 370; Contrast volume: 80 ml; Contrast route: INTRAVENOUS (IV); COMPARISON: CT HEAD/BRAIN WO CON 06/08/2024 2:07 PM FINDINGS: ANTERIOR CIRCULATION: Right internal carotid artery: Intracranial segment is patent with no significant stenosis. No aneurysm. Right middle cerebral artery: No occlusion or significant stenosis. No aneurysm. Right anterior cerebral artery: No occlusion or significant stenosis. No aneurysm. Anterior communicating artery: The anterior communicating artery is demonstrated and appears patent, unremarkable. Left internal carotid artery: Intracranial segment is patent with no significant stenosis. No aneurysm. Left middle cerebral artery: No occlusion or significant stenosis. No aneurysm. Left anterior cerebral artery: No occlusion or significant stenosis. No aneurysm. POSTERIOR CIRCULATION: Right vertebral artery: No occlusion or significant stenosis. No aneurysm. Left vertebral artery: No occlusion or significant stenosis. No aneurysm. Basilar artery: No occlusion or significant stenosis. No aneurysm. Right posterior cerebral artery: No occlusion or significant stenosis. No aneurysm. Right posterior communicating artery is not well seen. Left posterior cerebral artery: No occlusion or significant stenosis. No aneurysm. Dominant left posterior communicating artery is demonstrated with smaller left P1 segment. Other arteries: [id number] diffuse atherosclerotic arterial vascular wall calcifications are demonstrated. Brain: See Cerebral ventricles finding. No definite mass, mass effect, or midline shift. Moderate generalized intracranial atrophy with periventricular white matter hypodensity, suggesting chronic small vessel white matter ischemic changes. Cerebral ventricles: The ventricles, sulci, cisterns appear prominent, related to generalized atrophy. Bones/joints: No acute fracture. Decreased bone density. Soft tissues: Refer to the recently performed neck imaging for further neck findings. IMPRESSION: 1. No evidence for large vessel intracranial occlusion. 2. Patent bilateral vertebral arteries both contribute to the basilar artery. 3. Moderate generalized intracranial atrophy with likely chronic ischemic changes.
--- NOTE | 2024-06-08 12:45 | CT_ITS ---
PROCEDURE INFORMATION: Exam: CT Head Without Contrast Exam date and time: 06/08/2024 2:07 PM Age: 83 years old Clinical indication: Injury or trauma; Fall; Blunt trauma (contusions or hematomas); Additional info: Found down TECHNIQUE: Imaging protocol: Computed tomography of the head without contrast. Radiation optimization: All CT scans at this facility use at least one of these dose optimization techniques: automated exposure control; mA and/or kV adjustment per patient size (includes targeted exams where dose is matched to clinical indication); or iterative reconstruction. COMPARISON: No relevant prior studies available. FINDINGS: Brain: Periventricular white matter tract changes demonstrated. Associated ex vacuo dilatation of the lateral ventricles and temporal horns. Mild-moderate prominence of the cortical sulci. Cerebral ventricles: See Brain finding. Paranasal sinuses: Bilateral maxillary sinus inflammatory changes. Mastoid air cells: Visualized mastoid air cells are well aerated. Bones: Unremarkable. No acute fracture. Soft tissues: Unremarkable. Vasculature: Atherosclerotic calcification. intracavernous portions internal carotid arteries. IMPRESSION: No evidence of acute intracranial abnormality.
--- NOTE | 2024-06-08 12:45 | CT_ITS ---
PROCEDURE INFORMATION: Exam: CT Cervical Spine Without Contrast Exam date and time: 06/08/2024 2:09 PM Age: 83 years old Clinical indication: Injury or trauma; Fall; Blunt trauma; Additional info: Found down TECHNIQUE: Imaging protocol: Computed tomography of the cervical spine without contrast. Radiation optimization: All CT scans at this facility use at least one of these dose optimization techniques: automated exposure control; mA and/or kV adjustment per patient size (includes targeted exams where dose is matched to clinical indication); or iterative reconstruction. COMPARISON: CT HEAD/BRAIN WO CON 06/08/2024 2:07 PM FINDINGS: Bones: Cervical spondylosis with multilevel disc degeneration. Disc degeneration most pronounced at C4-C5 and C5-C6. Lungs: Incomplete visualization of focal region of consolidation right lung apex. Follow-up with chest radiograph. Soft tissues: Unremarkable. IMPRESSION: 1. Incomplete visualization of focal region of consolidation right lung apex. Follow-up with chest radiograph. 2. No evidence of acute osseous injury.
--- NOTE | 2024-06-08 12:45 | CT_ITS ---
PROCEDURE INFORMATION: Exam: CTA Abdomen and Pelvis With Contrast Exam date and time: 06/08/2024 2:21 PM Age: 83 years old Clinical indication: Injury or trauma; Fall; Blunt trauma; Pelvic area; Bilateral; Additional info: Found down, large sacral wound TECHNIQUE: Imaging protocol: Computed tomographic angiography of the abdomen and pelvis with contrast. Exam focused on the arteries. 3D rendering (Not supervised by radiologist): MIP and/or 3D reconstructed images were created by the technologist. Radiation optimization: All CT scans at this facility use at least one of these dose optimization techniques: automated exposure control; mA and/or kV adjustment per patient size (includes targeted exams where dose is matched to clinical indication); or iterative reconstruction. Contrast material: ISOVUE 370; Contrast volume: 80 ml; Contrast route: INTRAVENOUS (IV); COMPARISON: CT BONY PELVIS 06/08/2024 2:11 PM FINDINGS: Aorta: No aortic aneurysm. No aortic dissection. Celiac trunk and mesenteric arteries: No occlusion or significant stenosis. Renal arteries: No occlusion or significant stenosis. Right iliac arteries: No occlusion or significant stenosis. Left iliac arteries: No occlusion or significant stenosis. Liver: No mass. Gallbladder and biliary ducts: Unremarkable. No calcified stones. No ductal dilation. Pancreas: Unremarkable. No mass. No ductal dilation. Spleen: 2.3 cm splenic cyst. Otherwise unremarkable spleen. Adrenal glands: Unremarkable. No mass. Kidneys and ureters: Unremarkable. No solid mass. No hydronephrosis. Stomach and bowel: Scattered colonic diverticula without pericolonic fat stranding. Appendix: No evidence of appendicitis. Intraperitoneal space: Unremarkable. No free air. No significant fluid collection. Lymph nodes: Unremarkable. No enlarged lymph nodes. Urinary bladder: Right urinary bladder wall diverticulum measuring 2.2 cm. Reproductive: Unremarkable as visualized. Bones/joints: No acute fracture. Soft tissues: Unremarkable. IMPRESSION: 1. No acute intra abdominopelvic findings identified. 2. Colonic diverticulosis. 3. Urinary bladder wall diverticulum.
--- NOTE | 2024-06-08 12:47 | XR_ITS ---
PROCEDURE INFORMATION: Exam: XR Left Hip Exam date and time: 06/08/2024 2:23 PM Age: 83 years old Clinical indication: Hip pain; Bilateral; Additional info: Found down TECHNIQUE: Imaging protocol: Radiologic exam of the left hip. Views: 2 or 3 views hip with pelvis when performed. COMPARISON: CT ANGIO ABDOMEN PELVIS 06/08/2024 2:21 PM FINDINGS: Bones/joints: Unremarkable. No acute fracture. Soft tissues: Unremarkable. IMPRESSION: No acute findings.
--- NOTE | 2024-06-08 12:47 | XR_ITS ---
PROCEDURE INFORMATION: Exam: XR Left Femur Exam date and time: 06/08/2024 2:24 PM Age: 83 years old Clinical indication: Pain; Lower leg; Left; Additional info: Found down TECHNIQUE: Imaging protocol: Radiologic exam of the left femur. Views: 2 views. COMPARISON: CR Hip L 06/08/2024 2:23 PM FINDINGS: Bones/joints: New placement/arthroplasty without obvious periprosthetic lucency. No acute fracture. Soft tissues: Unremarkable. IMPRESSION: No acute findings.
[2024-06-08 12:55] LABS: VBG HCO3 24.9 mmol/L (23-30); VBG Oxygen Saturation 72.3 % (50-70); VBG PCO2 41.6 mmol/L (35-51); VBG PO2 36.4 mmol/L (28-40); VBG Total CO2 26.2 mmol/L (23-27)
[2024-06-08 12:57] LABS: Basophils % 0.2 % (0.1-2.0); Eosinophils % 0.4 % (0.1-12.0); Hematocrit 43.7 % (42.0-52.0); Hemoglobin 14.8 g/dL (14.1-18.0); Lymphocytes # 0.6 K/mm3 (0.7-4.5); Lymphocytes % 4.6 % (10-50); Mean Corpuscular HGB Conc 33.7 g/dL (31.8-35.4); Mean Corpuscular Hemoglobin 32.7 pg (27.0-31.2); Mean Platelet Volume 10.7 fl (7.4-10.4); Monocytes # 0.8 K/mm3 (0.1-1.0); Monocytes % 6.7 % (1.7-9.3); Neutrophils # 10.4 K/mm3 (1.8-7.8); Platelet Count 133 K/mm3 (142-424); Red Blood Count 4.51 M/mm3 (4.60-6.20); Red Cell Distribution Width 13.4 % (11.5-17.5); White Blood Count 11.8 K/mm3 (4.8-10.8)
[2024-06-08 12:57] LABS: Lactate Venous 2.9 mmol/L (0.4-2.0)
[2024-06-08 12:59] LABS: MANUAL DIFFERENTIAL MANUAL DIFFERENTIAL (MANUAL DIFF)
--- NOTE | 2024-06-08 13:04 | XR_ITS ---
PROCEDURE INFORMATION: Exam: XR Right Hip Exam date and time: 06/08/2024 2:21 PM Age: 83 years old Clinical indication: Pelvic pain; Additional info: Found down, pain TECHNIQUE: Imaging protocol: Radiologic exam of the right hip. Views: 2 or 3 views hip with pelvis when performed. COMPARISON: CT ANGIO ABDOMEN PELVIS 06/08/2024 2:21 PM FINDINGS: Bones/joints: Unremarkable. No acute fracture. Degenerative changes of both hips and sacroiliac joints. Soft tissues: Unremarkable. IMPRESSION: No acute findings.
--- NOTE | 2024-06-08 13:04 | XR_ITS ---
PROCEDURE INFORMATION: Exam: XR Right Femur Exam date and time: 06/08/2024 2:23 PM Age: 83 years old Clinical indication: Pain; Lower leg; Right; Additional info: Fall TECHNIQUE: Imaging protocol: Radiologic exam of the right femur. Views: 2 views. COMPARISON: CR Hip R 06/08/2024 2:21 PM FINDINGS: Bones/joints: Unremarkable. No acute fracture. Soft tissues: Unremarkable. IMPRESSION: No acute findings.
--- NOTE | 2024-06-08 13:04 | CT_ITS ---
PROCEDURE INFORMATION: Exam: CT Pelvis Without Contrast, Skeleton Exam date and time: 06/08/2024 2:11 PM Age: 83 years old Clinical indication: Injury or trauma; Fall; Blunt trauma (contusions or hematomas); Bilateral; Pelvic region; Additional info: Found down, b/l hip pain TECHNIQUE: Imaging protocol: Computed tomography of the pelvis without contrast. Exam focused on the skeleton. Radiation optimization: All CT scans at this facility use at least one of these dose optimization techniques: automated exposure control; mA and/or kV adjustment per patient size (includes targeted exams where dose is matched to clinical indication); or iterative reconstruction. COMPARISON: No relevant prior studies available. FINDINGS: Bones/joints: Degenerative changes of both hips and sacroiliac joints. No acute fracture. No dislocation. Soft tissues: Unremarkable. IMPRESSION: No acute findings.
--- NOTE | 2024-06-08 13:05 | XR_ITS ---
PROCEDURE INFORMATION: Exam: XR Left Shoulder Exam date and time: 06/08/2024 2:25 PM Age: 83 years old Clinical indication: Pain; Shoulder; Left; Additional info: Fall TECHNIQUE: Imaging protocol: Radiologic exam of the left shoulder. Views: 2 or more views. COMPARISON: CT ANGIO CHEST 06/08/2024 2:21 PM FINDINGS: Bones/joints: No acute fracture. Probable old injury of inferior bony glenoid. Normal alignment. Moderately severe degenerative changes both glenohumeral and acromioclavicular joints. Soft tissues: Normal. IMPRESSION: No acute findings.
--- NOTE | 2024-06-08 13:05 | XR_ITS ---
PROCEDURE INFORMATION: Exam: XR Left Humerus Exam date and time: 06/08/2024 2:27 PM Age: 83 years old Clinical indication: Pain; Upper arm; Left; Additional info: Fall TECHNIQUE: Imaging protocol: Radiologic exam of the left humerus. Views: 2 or more views. COMPARISON: CR Shoulder L 06/08/2024 2:25 PM FINDINGS: Bones/joints: No fracture. Normal alignment. Degenerative changes of visualized shoulder. Soft tissues: Normal. IMPRESSION: No acute findings.
--- NOTE | 2024-06-08 13:06 | ECG_ITS ---
APPROVED REPORT Exam: Resting ECG HR:112 bpm ECG Measurements Heart Rate 112 AXES QRSd 124 QRS -83 QT 340 T 74 QTc 407 Conclusion Atrial flutter versus sinus tachycardia with aberrancy ST depressions without reciprocal elevation Electronically signed by : SANJEEV DHILLON, 06/08/2024 19:45:32
--- NOTE | 2024-06-08 13:06 | ED_ITS ---
Discharge Plan Disposition Patient Disposition: Admitted Chief Complaint: Fall Prescriptions Prescriptions: No Action furosemide 20 mg tablet PO Patient Comments: TAKE 1 TABLET BY MOUTH IN THE MORNING spironolactone 25 mg tablet PO DAILY diclofenac sodium 75 mg tablet,delayed release (DR/EC) PO ONCE Patient Comments: TAKE 1 TABLET BY MOUTH TWICE DAILY loratadine 10 mg tablet PO DAILY Patient Comments: TAKE 1 TABLET BY MOUTH ONCE DAILY AT BEDTIME losartan 25 mg tablet PO DAILY Patient Comments: TAKE 1 TABLET BY MOUTH DAILY citalopram 20 mg tablet PO Patient Comments: TAKE 1 TABLET BY MOUTH ONCE DAILY mupirocin 2 % ointment 1 applic topical BID 10 Days Qty: 15 0RF paroxetine HCl 20 mg tablet 20 mg PO DAILY nebivolol 5 MG tablet 5 mg PO HS oxybutynin chloride 5 MG tablet extended release 24hr 5 mg PO DAILY ibuprofen 600 MG tablet 600 mg PO Q6HP PRN (Reason: Mild Pain) Qty: 30 0RF aspirin 325 MG tablet 325 mg PO DAILY Referrals Follow up/Referrals: Provider,Referral, MD [Primary Care Provider] - See instructions Clinical Impressions Clinical Impression: Aspiration pneumonia, Rhabdomyolysis Print Language Print Language: Danish Discharge ED Provider: Darion Hooks General Adult HPI <Cristobal aRmon MD - Last Filed: 06/08/24 15:18> General Chief complaint: Fall Stated complaint: fall Time Seen by Provider: 06/08/24 12:30 Mode of Arrival: EMS Source of Information: EMS Limitations: Altered Mental Status Description of Symptoms (Recalled from ER Triage Doc. by RN): fall possibly laying on the floor for 2 days,altered mental status. wound to coccyx. stg 4 History of Present Illness HPI narrative: Patient is 83-year-old male with past medical history of hypertension who presents emergency department after being found down. Patient was found down on his side in his kitchen, he is suspected to be there for approximately 48 hours. 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 He is complaining of chest pain, bilateral hip pain, left shoulder and left upper arm pain. No other acute complaints at this time. Related Data Home Medications ?Medication ?Instructions ?Recorded ?Confirmed nebivolol 5 mg tablet 5 mg PO HS Hypertension 06/26/20 06/02/24 oxybutynin chloride 5 mg 5 mg PO DAILY Kidney failure 06/26/20 06/02/24 tablet,extended release 24 hr paroxetine HCl 20 mg tablet 20 mg PO DAILY Anxiety 09/10/20 06/02/24 aspirin 325 mg tablet 325 mg PO DAILY heart healthy 09/13/20 06/02/24 citalopram 20 mg tablet mg PO 06/02/24 06/02/24 diclofenac sodium 75 mg mg PO ONCE 06/02/24 06/02/24 tablet,delayed release furosemide 20 mg tablet mg PO 06/02/24 06/02/24 loratadine 10 mg tablet mg PO DAILY 06/02/24 06/02/24 losartan 25 mg tablet mg PO DAILY 06/02/24 06/02/24 spironolactone 25 mg tablet mg PO DAILY 06/02/24 06/02/24 Previous Rx's ?Medication ?Instructions ?Recorded ibuprofen 600 mg tablet 600 mg PO Q6HP PRN Mild Pain #30 09/08/20 tabs mupirocin 2 % topical ointment 1 applic topical BID infection 10 06/02/24 days #15 grams Allergies Allergy/AdvReac Type Severity Reaction Status Date / Time acetaminophen (From [place]) Allergy Verified 06/02/24 08:44 hydrocodone (From [place]) Allergy Verified 06/02/24 08:44 PFS <Cristobal Ramon MD - Last Filed: 06/08/24 15:18> [facility] Disclaimer: The information contained in this section may have been updated after the patient was seen, as this information can be updated by other users. 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 current occupational exposures/hazards: No caffeine: Yes Other Medical History Have you received the Flu Vaccine for this season: Yes Have you received the Pneumonia Vaccine: No <Cristobal Ramon MD - Last Filed: 06/08/24 15:18> ROS Obtained: Yes Systems reviewed as appropriate & no additional complaints except as documented Physical Exam <Cristobal Ramon MD - Last Filed: 06/08/24 15:18> General General appearance: alert and in no apparent distress Head Head exam: atraumatic and normocephalic Eye Eye exam: Present PERRL and EOMI ENT ENT exam: Present mucous membranes moist Neck Neck exam: Present normal inspection and tenderness (Midline) Chest Chest inspection: Present normal inspection and symmetric chest wall rise Respiratory Respiratory exam: Absent normal lung sounds bilaterally (Decreased breath sounds right upper lobe), respiratory distress, wheezes or stridor Cardiovascular Cardiovascular exam: Present regular rate and normal rhythm Abdominal Exam Abdominal exam: Present soft; Absent tenderness, guarding or rebound Extremities Exam Extremities exam: Present other (Significant tenderness over the bilateral hips. Unable to range the hips due to pain. No tenderness over the knees distally in the bilateral lower extremities. Not ulcerated pressure wounds bilateral calcaneus.) Back Exam Back exam: Present other (Scattered bruising over the back, significant pressure wound over the coccyx) Neurological Exam Neurological exam: Present alert, CN II-XII intact and other (Sensation intact bilateral upper and lower extremities, motor limited to the lower extremity secondary to pain at the hips. Oriented to self.) Psychiatric Psychiatric exam: Present normal affect Skin Skin exam: Present warm and dry Medical Decision Making <Cristobal Ramon MD - Last Filed: 06/08/24 15:18> Medical Records Screening: Per USPSTF and CDC recommendations, given the prevalence of disease in our region, it is our hospital?s policy to screen for HIV and viral Hepatitis for all patients aged 18 and over and those with ongoing risk factors. Jamir Inquiry Pt receiving controlled substance: No Vital Signs: 06/08/24 12:22 06/08/24 13:01 06/08/24 13:16 Temperature 98.7 F Temperature Source Oral Pulse Rate 97 H 111 H Pulse Rate [Right] 89 Respiratory Rate 20 20 21 Blood Pressure 132/100 H 129/95 H Blood Pressure [Right Arm] 120/84 Blood Pressure Mean Blood Pressure Mean [Right Arm] 96 02 Sat by Pulse Oximetry 82 L 95 96 Oxygen Delivery Method Room Air Nasal Cannula Nasal Cannula Oxygen Flow Rate (LPM) 4 4 06/08/24 13:30 06/08/24 15:01 06/08/24 15:31 Temperature Temperature Source Pulse Rate 103 H 117 H Pulse Rate [Right] Respiratory Rate 19 26 H 21 Blood Pressure 141/76 H 140/83 127/79 Blood Pressure [Right Arm] Blood Pressure Mean 97 95 Blood Pressure Mean [Right Arm] 02 Sat by Pulse Oximetry 91 L 99 95 Oxygen Delivery Method Nasal Cannula Nasal Cannula Oxygen Flow Rate (LPM) 4 4 06/08/24 16:01 06/08/24 16:31 Temperature Temperature Source Pulse Rate 107 H 107 H Pulse Rate [Right] Respiratory Rate 22 23 Blood Pressure 141/95 H 140/98 H Blood Pressure [Right Arm] Blood Pressure Mean Blood Pressure Mean [Right Arm] 02 Sat by Pulse Oximetry 96 97 Oxygen Delivery Method Nasal Cannula Nasal Cannula Oxygen Flow Rate (LPM) Lab Data Lab Results 06/08/24 12:24: WBC 11.8 H, RBC 4.51 L, Hgb 14.8, Hct 43.7, MCV 97.0 H, MCH 32.7 H, MCHC 33.7, RDW 13.4, Plt Count 133 L, MPV 10.7 H, Neut % (Auto) 88.0 H, Lymph % (Auto) 4.6 L, [place] % (Auto) 6.7, Eos % (Auto) 0.4, Baso % (Auto) 0.2, Neut # (Auto) 10.4 H, Lymph # (Auto) 0.6 L, [place] # (Auto) 0.8, Eos # (Auto) 0.0, Baso # (Auto) 0.0, Total Counted 100, Neutrophils % (Manual) 91 H, Lymphocytes % (Manual) 2 L, Monocytes % (Manual) 7, Platelet Estimate Slight decrease, RBC Morphology Normal, HIV 1&2 Antibody Rapid Nonreactive 06/08/24 12:47: VBG pH 7.40, VBG pCO2 41.6, VBG pO2 36.4, VBG HCO3 24.9, VBG Total CO2 26.2, VBG O2 Saturation 72.3 H, VBG Base Excess 0.0, VBG Lactic Acid 2.9 H 06/08/24 13:18: Sodium 145, Potassium 4.0, Chloride 110 H, Carbon Dioxide 30, Anion Gap 9.0, BUN 35 H, Creatinine 0.90, Estimated Creat Clear 64, Estimated GFR 80, Est GFR ( Amer) 97, Glucose 170 H, Calcium 9.0, Total Bilirubin 1.3, AST 179 H, ALT 71, Alkaline Phosphatase 90, Total Creatine Kinase 4626 H*, Troponin I 0.03, Total Protein 6.2 L, Albumin 3.5, Globulin 2.7, Albumin/Globulin Ratio 1.3 06/08/24 15:17: Urine Color Yellow, Urine Appearance Clear, Urine pH 5.0, Ur Specific [place] 1.010, Urine Protein 1+ A, Urine Glucose (UA) Negative, Urine Ketones Negative, Urine Blood 3+ A, Urine Nitrate Negative, Urine Bilirubin Negative, Urine Urobilinogen 1.0, Ur Leukocyte Esterase Negative, Urine RBC None, Urine WBC 3-5, Ur Squamous Epith Cells None, Amorphous Sediment 1+, Urine Bacteria 1+ 06/08/24 16:20: Troponin I 0.03 06/08/24 12:24 06/08/24 13:18 Orders (Tests/Meds): ED MEDICATIONS Discontinued Medications Generic Name Dose Route Start Last Admin Trade Name Freq PRN Reason Stop Dose Admin Sodium Chloride 1,000 mls @ 999 mls/hr 06/08/24 13:06 06/08/24 13:57 Sod Chlor 0.9% 1000ml Bag IV 06/08/24 14:06 999 mls/hr .Q1H1M ONE Administration Sodium Chloride 1,000 mls @ 999 mls/hr 06/08/24 15:08 06/08/24 15:34 Sod Chlor 0.9% 1000ml Bag IV 06/08/24 16:08 999 mls/hr .Q1H1M ONE Administration Ceftriaxone Sodium 1 gm/ 50 mls @ 100 mls/hr 06/08/24 15:12 06/08/24 15:34 Sodium Chloride IV 06/08/24 15:41 100 mls/hr ONCE ONE Administration Azithromycin 500 mg/ Sodium 250 mls @ 250 mls/hr 06/08/24 15:12 Chloride IV 06/08/24 15:13 ONCE ONE Metronidazole 500 mg in 100 mls @ 100 mls/hr 06/08/24 15:14 06/08/24 16:06 Flagyl 500mg/100ml Ivpb IV 06/08/24 16:13 100 mls/hr ONCE ONE Administration Iopamidol 160 ml 06/08/24 14:19 06/08/24 14:21 Iopamidol-370 (76%);100ml Bottle IV 06/08/24 14:20 160 ml ONCE ONE Administration Sodium Chloride 10 ml 06/08/24 14:19 06/08/24 14:21 Sodium Chloride 0.9% 10ml Syr (Rad Only) IV 06/08/24 14:20 10 ml ONCE ONE Administration Sodium Chloride 50 ml 06/08/24 14:19 06/08/24 14:21 0.9 % Sodium Chloride 50 Ml Vial IV 06/08/24 14:20 50 ml ONCE ONE Administration Tetanus/Reduced Diphtheria/Acell Pertussis 0.5 ml 06/08/24 13:05 06/08/24 13:56 Tet/Diphth/Pert-Adult 0.5ml Syringe IM 06/08/24 13:06 0.5 ml .ONCE ONE Administration ORDERS Category Date Time Status CT angio abdomen pelvis Stat Cat Scan 06/08/24 12:[address] angio chest - dissection Stat Cat Scan 06/08/24 12:[address] angio head Stat Cat Scan 06/08/24 12:[address] angio neck Stat Cat Scan 06/08/24 12:[address] bony pelvis Stat Cat Scan 06/08/24 13:[address] cervical spine wo con Stat Cat Scan 06/08/24 12:[address] head/brain wo con Stat Cat Scan 06/08/24 12:45 Completed Femur XR left 2 views [XR femur LT 2V] Stat Exams 06/08/24 12:47 Completed Femur XR right 2 views [XR femur RT 2V] Stat Exams 06/08/24 13:04 Completed Hip XR left minimum 2 views [XR hip LT 2-3V w/pelvis] Exams 06/08/24 12:47 Completed Stat Hip XR right minimum 2 views [XR hip RT 2-3V w/pelvis] Exams 06/08/24 13:04 Completed Stat Humerus XR left [XR humerus LT] Stat Exams 06/08/24 13:05 Completed Shoulder XR left minimum 2 views [XR shoulder LT min 2V Exams 06/08/24 13:05 Completed ] Stat CBC w/Auto Diff [Complete Blood Count Auto Diff] Stat Lab 06/08/24 12:24 Completed CK [Creatine Kinase] Stat Lab 06/08/24 13:18 Completed CMP [Comprehensive Metabolic Panel] Stat Lab 06/08/24 13:18 Completed HIV (1&2) Antibody Rapid Stat Lab 06/08/24 12:24 Completed Hep C Ab with Reflex to RNA Stat Lab 06/08/24 12:24 Received Lactic Acid Follow Up (RFLX 1) Stat Lab 06/08/24 16:56 Ordered Trop I [Troponin I] Stat Lab 06/08/24 13:18 Completed Troponin I Q3H Lab 06/08/24 16:20 Completed Troponin I Q3H Lab 06/08/24 19:00 Ordered UA [Urinalysis and Microscopic] Stat Lab 06/08/24 15:17 Completed VBG [Venous Blood Gas] Stat RT 06/08/24 12:47 Completed ECG Data Tracing #1: Independently interpreted by me rate is 113, rhythm is irregular, atrial flutter versus sinus arrhythmia. EKG will be repeated, QTc 384. No ST elevation in anatomical contiguous leads. Intermittent PVCs. Tracing #2: Independently interpreted by me rate is 112, rhythm is irregular, axis is leftward deviated, no ST elevation in anatomical contiguous leads, atrial flutter with intermittent block. QTc 407 Medical Decision Narrative: In summary patient is 83-year-old male past medical history described above presents emergency department after being found down. Patient is hemodynamically stable and encephalopathic upon arrival, requiring nasal cannula to saturate greater than 90%. Differential diagnosis includes fall with deconditioning, urinary tract infection, polytrauma, ACS, among others. Broad workup be conducted with hematologic labs, CT imaging the head, neck, thorax, and pelvis. Plain films of the left shoulder and bilateral hips and femurs will be obtained. Initial inventions include crystalloid bolus, morphine, Tylenol. Tdap will be updated. Initial workup reviewed by me, no significant leukocytosis, platelets 133, hemoglobin normal, lactate 2.9 with normal acid- base status otherwise, no critical electrolyte abnormality or EMILY, CK is just above 4600 initial troponin within normal limits. Patient will be given total of 2 L normal saline crystalloid resuscitation for his rhabdomyolysis. Noncontrasted CT scan of the head reviewed by me and has no large intracranial hemorrhage. CTA chest shows pulmonary consolidation in the right upper lobe given found out my concern for aspiration is high will be treated with ceftriaxone and metronidazole. Remainder of trauma survey conducted a pending at time of transfer of care to the oncoming physician, Dr. Hooks. <Darion Hooks MD - Last Filed: 06/08/24 17:35> Vital Signs: 06/08/24 12:22 06/08/24 13:01 06/08/24 13:16 Temperature 98.7 F Temperature Source Oral Pulse Rate 97 H 111 H Pulse Rate [Right] 89 Respiratory Rate 20 20 21 Blood Pressure 132/100 H 129/95 H Blood Pressure [Right Arm] 120/84 Blood Pressure Mean Blood Pressure Mean [Right Arm] 96 02 Sat by Pulse Oximetry 82 L 95 96 Oxygen Delivery Method Room Air Nasal Cannula Nasal Cannula Oxygen Flow Rate (LPM) 4 4 06/08/24 13:30 06/08/24 15:01 06/08/24 15:31 Temperature Temperature Source Pulse Rate 103 H 117 H Pulse Rate [Right] Respiratory Rate 19 26 H 21 Blood Pressure 141/76 H 140/83 127/79 Blood Pressure [Right Arm] Blood Pressure Mean 97 95 Blood Pressure Mean [Right Arm] 02 Sat by Pulse Oximetry 91 L 99 95 Oxygen Delivery Method Nasal Cannula Nasal Cannula Oxygen Flow Rate (LPM) 4 4 06/08/24 16:01 06/08/24 16:31 Temperature Temperature Source Pulse Rate 107 H 107 H Pulse Rate [Right] Respiratory Rate 22 23 Blood Pressure 141/95 H 140/98 H Blood Pressure [Right Arm] Blood Pressure Mean Blood Pressure Mean [Right Arm] 02 Sat by Pulse Oximetry 96 97 Oxygen Delivery Method Nasal Cannula Nasal Cannula Oxygen Flow Rate (LPM) Lab Data Lab Results 06/08/24 12:24: WBC 11.8 H, RBC 4.51 L, Hgb 14.8, Hct 43.7, MCV 97.0 H, MCH 32.7 H, MCHC 33.7, RDW 13.4, Plt Count 133 L, MPV 10.7 H, Neut % (Auto) 88.0 H, Lymph % (Auto) 4.6 L, [place] % (Auto) 6.7, Eos % (Auto) 0.4, Baso % (Auto) 0.2, Neut # (Auto) 10.4 H, Lymph # (Auto) 0.6 L, [place] # (Auto) 0.8, Eos # (Auto) 0.0, Baso # (Auto) 0.0, Total Counted 100, Neutrophils % (Manual) 91 H, Lymphocytes % (Manual) 2 L, Monocytes % (Manual) 7, Platelet Estimate Slight decrease, RBC Morphology Normal, HIV 1&2 Antibody Rapid Nonreactive 06/08/24 12:47: VBG pH 7.40, VBG pCO2 41.6, VBG pO2 36.4, VBG HCO3 24.9, VBG Total CO2 26.2, VBG O2 Saturation 72.3 H, VBG Base Excess 0.0, VBG Lactic Acid 2.9 H 06/08/24 13:18: Sodium 145, Potassium 4.0, Chloride 110 H, Carbon Dioxide 30, Anion Gap 9.0, BUN 35 H, Creatinine 0.90, Estimated Creat Clear 64, Estimated GFR 80, Est GFR ( Amer) 97, Glucose 170 H, Calcium 9.0, Total Bilirubin 1.3, AST 179 H, ALT 71, Alkaline Phosphatase 90, Total Creatine Kinase 4626 H*, Troponin I 0.03, Total Protein 6.2 L, Albumin 3.5, Globulin 2.7, Albumin/Globulin Ratio 1.3 06/08/24 15:17: Urine Color Yellow, Urine Appearance Clear, Urine pH 5.0, Ur Specific [place] 1.010, Urine Protein 1+ A, Urine Glucose (UA) Negative, Urine Ketones Negative, Urine Blood 3+ A, Urine Nitrate Negative, Urine Bilirubin Negative, Urine Urobilinogen 1.0, Ur Leukocyte Esterase Negative, Urine RBC None, Urine WBC 3-5, Ur Squamous Epith Cells None, Amorphous Sediment 1+, Urine Bacteria 1+ 06/08/24 16:20: Troponin I 0.03 Orders (Tests/Meds): ED MEDICATIONS Discontinued Medications Generic Name Dose Route Start Last Admin Trade Name Juniorq PRN Reason Stop Dose Admin Sodium Chloride 1,000 mls @ 999 mls/hr 06/08/24 13:06 06/08/24 13:57 Sod Chlor 0.9% 1000ml Bag IV 06/08/24 14:06 999 mls/hr .Q1H1M ONE Administration Sodium Chloride 1,000 mls @ 999 mls/hr 06/08/24 15:08 06/08/24 15:34 Sod Chlor 0.9% 1000ml Bag IV 06/08/24 16:08 999 mls/hr .Q1H1M ONE Administration Ceftriaxone Sodium 1 gm/ 50 mls @ 100 mls/hr 06/08/24 15:12 06/08/24 15:34 Sodium Chloride IV 06/08/24 15:41 100 mls/hr ONCE ONE Administration Azithromycin 500 mg/ Sodium 250 mls @ 250 mls/hr 06/08/24 15:12 Chloride IV 06/08/24 15:13 ONCE ONE Metronidazole 500 mg in 100 mls @ 100 mls/hr 06/08/24 15:14 06/08/24 16:06 Flagyl 500mg/100ml Ivpb IV 06/08/24 16:13 100 mls/hr ONCE ONE Administration Iopamidol 160 ml 06/08/24 14:19 06/08/24 14:21 Iopamidol-370 (76%);100ml Bottle IV 06/08/24 14:20 160 ml ONCE ONE Administration Sodium Chloride 10 ml 06/08/24 14:19 06/08/24 14:21 Sodium Chloride 0.9% 10ml Syr (Rad Only) IV 06/08/24 14:20 10 ml ONCE ONE Administration Sodium Chloride 50 ml 06/08/24 14:19 06/08/24 14:21 0.9 % Sodium Chloride 50 Ml Vial IV 06/08/24 14:20 50 ml ONCE ONE Administration Tetanus/Reduced Diphtheria/Acell Pertussis 0.5 ml 06/08/24 13:05 06/08/24 13:56 Tet/Diphth/Pert-Adult 0.5ml Syringe IM 06/08/24 13:06 0.5 ml .ONCE ONE Administration ORDERS Category Date Time Status CT angio abdomen pelvis Stat Cat Scan 06/08/24 12:[address] angio chest - dissection Stat Cat Scan 06/08/24 12:[address] angio head Stat Cat Scan 06/08/24 12:[address] angio neck Stat Cat Scan 06/08/24 12:[address] bony pelvis Stat Cat Scan 06/08/24 13:[address] cervical spine wo con Stat Cat Scan 06/08/24 12:[address] head/brain wo con Stat Cat Scan 06/08/24 12:45 Completed Femur XR left 2 views [XR femur LT 2V] Stat Exams 06/08/24 12:47 Completed Femur XR right 2 views [XR femur RT 2V] Stat Exams 06/08/24 13:04 Completed Hip XR left minimum 2 views [XR hip LT 2-3V w/pelvis] Exams 06/08/24 12:47 Completed Stat Hip XR right minimum 2 views [XR hip RT 2-3V w/pelvis] Exams 06/08/24 13:04 Completed Stat Humerus XR left [XR humerus LT] Stat Exams 06/08/24 13:05 Completed Shoulder XR left minimum 2 views [XR shoulder LT min 2V Exams 06/08/24 13:05 Completed ] Stat CBC w/Auto Diff [Complete Blood Count Auto Diff] Stat Lab 06/08/24 12:24 Completed CK [Creatine Kinase] Stat Lab 06/08/24 13:18 Completed CMP [Comprehensive Metabolic Panel] Stat Lab 06/08/24 13:18 Completed HIV (1&2) Antibody Rapid Stat Lab 06/08/24 12:24 Completed Hep C Ab with Reflex to RNA Stat Lab 06/08/24 12:24 Received Lactic Acid Follow Up (RFLX 1) Stat Lab 06/08/24 16:56 Ordered Trop I [Troponin I] Stat Lab 06/08/24 13:18 Completed Troponin I Q3H Lab 06/08/24 16:20 Completed Troponin I Q3H Lab 06/08/24 19:00 Ordered UA [Urinalysis and Microscopic] Stat Lab 06/08/24 15:17 Completed VBG [Venous Blood Gas] Stat RT 06/08/24 12:47 Completed Medical Decision Narrative: In summary patient is 83-year-old male past medical history described above presents emergency department after being found down. Patient is hemodynamically stable and encephalopathic upon arrival, requiring nasal cannula to saturate greater than 90%. Differential diagnosis includes fall with deconditioning, urinary tract infection, polytrauma, ACS, among others. Broad workup be conducted with hematologic labs, CT imaging the head, neck, thorax, and pelvis. Plain films of the left shoulder and bilateral hips and femurs will be obtained. Initial inventions include crystalloid bolus, morphine, Tylenol. Tdap will be updated. Initial workup reviewed by me, no significant leukocytosis, platelets 133, hemoglobin normal, lactate 2.9 with normal acid- base status otherwise, no critical electrolyte abnormality or EMILY, CK is just above 4600 initial troponin within normal limits. Patient will be given total of 2 L normal saline crystalloid resuscitation for his rhabdomyolysis. Noncontrasted CT scan of the head reviewed by me and has no large intracranial hemorrhage. CTA chest shows pulmonary consolidation in the right upper lobe given found out my concern for aspiration is high will be treated with ceftriaxone and metronidazole. Remainder of trauma survey conducted a pending at time of transfer of care to the oncoming physician, Dr. Hooks. Jessee: I assumed primary responsibility for this patient after signout from previous physician. On my evaluation, patient uncomfortable generally. Requiring 2 L nasal cannula to saturate over 90% with no oxygen baseline. Patient confused, but reportedly more alert than when he came in. Son at bedside. Independent interpretation of workup concerning for rhabdomyolysis, right upper lobe pneumonia, new hyponatremia. Trauma scans independently interpreted and no acute traumatic findings. Hospital medicine was contacted and case was discussed at length, patient to be admitted for further definitive management for underlying metabolic abnormalities as well as infectious management. Because patient high risk for clinical decompensation, deemed appropriate for inpatient admission. Results were relayed to patient son who voiced understanding and patient was agreeable to inpatient admission and management. Patient was admitted to the hospital for further definitive management. Critical Care <Cristobal Ramon MD - Last Filed: 06/08/24 15:18> Critical Care Time Critical Care Time: Yes Attestation: On 06/08/24, the high probability of a clinically significant, sudden or life threatening deterioration of the following system(s) required my full and direct attention, intervention and personal management. The time I documented below is in addition to time spent performing reported procedures but includes the following listed in this critical care notation. Total Time Total Critical Care Time: 35
[2024-06-08 13:11] LABS: Lymphocytes % 2 % (10-50); Monocytes % 7 % (2-9); Neutrophils % 91 % (42-76); Platelet Estimate Slight Decrease; RBC Morphology Normal; Total Cells Counted 100
[2024-06-08 13:37] LABS: HIV (1&2) Antibody Rapid NONREACTIVE (NONREACTIVE)
[2024-06-08 13:39] LABS: Albumin Level 3.5 g/dl (3.5-5.0); Chloride 110 mmol/L (98-107); Sodium 145 mmol/L (136-145)
[2024-06-08 13:41] LABS: Blood Urea Nitrogen 35 mg/dl (9-20); Creatinine Clearance Estimated 64 mL/min (50-200); Estimated Glomerular Filt Rate 80 ml/min (>60); GFR (African American) 97 ML/MIN (>60)
[2024-06-08 13:42] LABS: Alanine Aminotransferase 71 U/L (12-78); Albumin/Globulin Ratio 1.3 (1.1-1.8); Alkaline Phosphatase 90 U/L (38-126); Aspartate Amino Transferase 179 U/L (17-59); Bilirubin,Total 1.3 mg/dl (0.2-1.3); Carbon Dioxide 30 mmol/L (22.0-30.0); Globulin 2.7 g/dL (1.3-3.2); Glucose 170 mg/dl (74-100); Total Protein,Serum 6.2 g/dl (6.3-8.2)
[2024-06-08 13:54] LABS: Troponin I 0.03 ng/ml (0.00-0.034)
[2024-06-08] MEDS: TET/DIPHTH/PERT-ADULT 0.5ML SYRINGE 0.5 ML IM (13:56)
[2024-06-08] MEDS: 0.9 % SODIUM CHLORIDE 1000ML 1,000 ML 999 ML IV ×2 (13:57→15:34)
[2024-06-08] MEDS: 0.9 % SODIUM CHLORIDE 50 ML VIAL IV (14:21)
[2024-06-08] MEDS: IOPAMIDOL-370 (76%);100ML BOTTLE 160 ML IV (14:21)
[2024-06-08] MEDS: SODIUM CHLORIDE 0.9% 10ML SYR (RAD ONLY) 10 ML IV (14:21)
[2024-06-08 14:43] LABS: Creatine Kinase 4626 U/L (55-170)
[2024-06-08 15:21] LABS: Microscopic, Urine URINE MICROSCOPIC (MICROSCOPIC)
[2024-06-08 15:31] LABS: Appearance,Urine CLEAR (Clear); Bilirubin,Urine Negative (Negative); Blood, Urine 3+ (Negative); Color,Urine YELLOW (Yellow); Glucose,Urine (UA) Negative (Negative); Ketones,Urine Negative (Negative); Leukocyte Esterase,Urine Negative (Negative); Nitrate,Urine Negative (Negative); Protein,Urine 1+ (Negative)
[2024-06-08] MEDS: CEFTRIAXONE 1 GM 1 GM in 0.9 % SODIUM CHLORIDE 50 ML IV (15:34)
[2024-06-08 15:50] LABS: Amorphous Sediment,Urine 1+ /lpf; Bacteria,Urine 1+ /lpf
[2024-06-08] MEDS: METRONIDAZ/SOD CHL 500 MG/100 ML PIGGYBACK 100 MG IV (16:06)
[2024-06-08 16:52] LABS: Troponin I 0.03 ng/ml (0.00-0.034)
[2024-06-08 16:56] LABS: Reflex Lactic Add Lactic Reflex
--- NOTE | 2024-06-08 17:42 | PC.NURSE ---
FACTORY FOCUS TECHNICIAN NOTIFIED OF ADMISSION
--- OUTSIDE RECORDS SUMMARY | 2024-06-08 17:49 | XMS_ITS | Encounter Summary ---
Author Organization Healthcare Address [address] 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 Name Role Phone Unavailable Primary Care Provider Unavailabl e Encounter Details Date Type Department Care Team (Late st Contact Info) Description 03/08/2016 [facility] Vitals Encounter [facility] [address] [place] [address] Provider, MD Renetta [address] [place] [id number] Social History Tobacco Use Types Packs/Day Years Used Date Smoking Tobacco: Never Assessed Sex and Gender Information Value Date Recorded Sex Assigned at Not on file Legal Sex Male 6:27 PM EDT Gender Identity Not on file Sexual Orientation Not on file documented as of this encounter Last Filed Vital Signs Vital Sign Reading Time Taken Comments Blood Pressure - - Pulse - - Temperature - - Respiratory Rate - - Oxygen Saturation - - Inhaled Oxygen Concentration - - Weight 89.8 kg (197 lb 15.9 oz) 016 11:27 AM EDT Height 190.5 cm (6' 3 ) 03/08/2016 11:2 7 AM EDT Body Mass Index 24.75 03/08/2016 11:27 AM EDT documented in this encounter Plan of Treatment Not on file documented as of this encounter Visit Diagnoses Not on filedocumented in this encounter
--- OUTSIDE RECORDS SUMMARY | 2024-06-08 17:49 | XMS_ITS | Encounter Summary ---
Author Organization Healthcare Address [address] [place] [address] Care Team Providers Care Research Advisor Name Role Phone Unavailable Primary Care Provider Unavailabl e Encounter Details Date Type Department Care Team (Late st Contact Info) Description 11/23/2016 [facility] Vitals En[facility] [address] [place] [address] Provider, MD Renetta [address] [place] [address] Social History Tobacco Use Types Packs/Day [...] - Inhaled Oxygen Concentration - - Weight 90.7 kg (200 lb) 11/23/2016 10:37 AM EDT Height - - Body Mass Index 25 11/03/2016 8:18 AM EDT documented in this encounter Plan of Treatment Not on file documented as of this encounter Visit Diagnoses Not on filedocumented in this encounter
--- OUTSIDE RECORDS SUMMARY | 2024-06-08 17:49 | XMS_ITS | Encounter Summary ---
Author Organization Healthcare Address [address] [place] [address] Care Team Providers Care Director Of [facility] Name Role Phone Unavailable Primary Care Provider Unavailabl e Encounter Details Date Type Department Care Team (Late st Contact Info) Description 01/09/2017 [facility] [address] [place] [address] Provider, MD Renetta [address] [place] [address] Social History Tobacco Use Types Packs/Day [...] - Inhaled Oxygen Concentration - - Weight 90.3 kg (199 lb 0.2 oz) 01/09/2017 11:46 AM EDT Height 190.5 cm (6' 3 ) 01/09/2017 11:15 AM EDT Body Mass Index 24.87 01/09/2017 11:15 AM EDT documented in this encounter Plan of Treatment Not on file documented as of this encounter Visit Diagnoses Not on filedocumented in this encounter
--- OUTSIDE RECORDS SUMMARY | 2024-06-08 17:49 | XMS_ITS | Encounter Summary ---
Author Organization Healthcare Address [address] [place] [address] Care Team Providers Care Buttonhole Maker Hand Name Role Phone Unavailable Primary Care Provider Unavailabl e Encounter Details Date Type Department Care Team (Late st Contact Info) Description 03/03/2015 [facility] [address] [place] [address] Provider, MD Renetta [address] [place] [address] Social History Tobacco Use Types Packs/Day [...] - Inhaled Oxygen Concentration - - Weight 86.2 kg (189 lb 15.9 oz) 03/03/2015 3:26 PM EDT Height 190.5 cm (6' 3 ) 03/03/2015 3:26 PM EDT Body Mass Index 23.75 03/03/2015 3:26 PM EDT documented in this encounter Plan of Treatment Not on file documented as of this encounter Visit Diagnoses Not on filedocumented in this encounter
--- OUTSIDE RECORDS SUMMARY | 2024-06-08 17:49 | XMS_ITS | Clinical Summary ---
Author Organization Healthcare Address [address] [place] [address] Care Team Providers Care Electric [employer] Salesperson Name Role Phone Sebastian Polanco MD Primary Care Provider [phone] Immunizations Name Administration Dates Next Due Influenza, Unspecified 04/26/2017 Influenza, seasonal, injectable 03/23/2016,04/22,06/22/2013 Pneumococcal Polysaccharide PPV23 06/22/2013,07/2011 Family History Medical History Relation Name Comments Other cancer Father Heart attack Mother Heart attack Sibling Relation Name Status Comments Father Mother Sibling Social History Tobacco Use Types Packs/Day Years Used Date Smoking Tobacco: Never Sex and Gender Information Value Date Recorded Sex Assigned at Not on file Legal Sex Male 6:27 PM EDT Gender Identity Not on file Sexual Orientation Not on file Last Filed Vital Signs Vital Sign Reading Time Taken Comments Blood Pressure 154/96 06/25/2018 11:01 AM EST Pulse 75 06/25/2018 11:01 AM EST Temperature 36.7 ??C (98 ??F) 06/25/2018 11:01 AM EST Respiratory Rate 16 06/25/2018 11:01 AM EST Oxygen Saturation - - Inhaled Oxygen Concentration - - Weight 90 kg (198 lb 6.3 oz) 06/25/2018 11:01 AM EST Height 190.5 cm (6' 3 ) 06/25/2018 11:01 AM EST Body Mass Index 24.8 06/25/2018 11:01 AM EST Plan of Treatment Not on file Care Teams Electric [employer] Salesperson Relationship Specialty Start Date End Date Sebastian Polanco MD [address] [place] [address] PCP - General 12/03/20
--- OUTSIDE RECORDS SUMMARY | 2024-06-08 17:49 | XMS_ITS | Encounter Summary ---
Author Organization Healthcare Address [address] [place] [address] Care Team Providers Care Aerial Advertiser Name Role Phone Unavailable Primary Care Provider Unavailabl e Encounter Details Date Type Department Care Team (Late st Contact Info) Description 04/26/2016 [facility] [address] [place] [address] Provider, MD Renetta [address] [place] [address] Social History Tobacco Use Types Packs/Day [...] Weight 89.8 kg (197 lb 15.9 oz) 04/26/2016 1:49 PM EDT Height 190.5 cm (6' 3 ) 04/26/2016 1:49 PM EDT Body Mass Index 24.75 04/26/2016 1:49 PM EDT documented in this encounter Plan of Treatment Not on file documented as of this encounter Visit Diagnoses Not on filedocumented in this encounter
--- OUTSIDE RECORDS SUMMARY | 2024-06-08 17:49 | XMS_ITS | Encounter Summary ---
Author Organization Healthcare Address [address] [place] [address] Care Team Providers Care Printer Assistant Name Role Phone Unavailable Primary Care Provider Unavailabl e Encounter Details Date Type Department Care Team (Late st Contact Info) Description 07/01/2014 [facility] En[facility] [address] [place] [address] Provider, MD Renetta [address] [place] [address] Social History Tobacco Use Types Packs/Day [...] - Inhaled Oxygen Concentration - - Weight 86.6 kg (191 lb 0.1 oz) 07/01/2014 11:50 AM EST Height 190.5 cm (6' 3 ) 07/01/2014 11:50 AM EST Body Mass Index 23.87 07/01/2014 11:50 AM EST documented in this encounter Plan of Treatment Not on file documented as of this encounter Visit Diagnoses Not on filedocumented in this encounter
--- OUTSIDE RECORDS SUMMARY | 2024-06-08 17:49 | XMS_ITS | Encounter Summary ---
Author Organization Healthcare Address [address] [place] [address] Care Team Providers Care Insurance Defense Attorney Name Role Phone Unavailable Primary Care Provider Unavailabl e Encounter Details Date Type Department Care Team (Late st Contact Info) Description 11/03/2016 [facility] [address] [place] [address] Provider, MD Renetta [address] [place] [address] Social History Tobacco Use Types Packs/Day [...] Weight 90.3 kg (199 lb 0.2 oz) 11/03/2016 8:18 A M EDT Height 190.5 cm (6' 3 ) 11/03/2016 8:18 AM EDT Body Mass Index 24.87 11/03/2016 8:18 AM EDT documented in this encounter Plan of Treatment Not on file documented as of this encounter Visit Diagnoses Not on filedocumented in this encounter
--- OUTSIDE RECORDS SUMMARY | 2024-06-08 17:49 | XMS_ITS | Encounter Summary ---
Author Organization Healthcare Address [address] [place] [address] Care Team Providers Care Banjo Repair Person Name Role Phone Unavailable Primary Care Provider Unavailabl e Encounter Details Date Type Department Care Team (Late st Contact Info) Description 12/14/2016 [facility] En[facility] [address] [place] [address] Provider, MD Renetta [address] [place] [address] Social History Tobacco Use Types Packs/Day [...] - - Weight 90.7 kg (200 lb) 12/14/2016 2:18 PM EDT Height - - Body Mass Index 25 11/03/2016 8:18 AM EDT documented in this encounter Plan of Treatment Not on file documented as of this encounter Visit Diagnoses Not on filedocumented in this encounter
--- OUTSIDE RECORDS SUMMARY | 2024-06-08 17:49 | XMS_ITS | Encounter Summary ---
Author Organization Healthcare Address [address] [place] [address] Care Team Providers Care Building Equipment Operator Name Role Phone Unavailable Primary Care Provider Unavailabl e Encounter Details Date Type Department Care Team (Late st Contact Info) Description 06/26/2017 [facility] En[facility] [address] [place] [address] Provider, MD Renetta [address] [place] [address] Social History Tobacco Use Types Packs/Day [...] - Inhaled Oxygen Concentration - - Weight 91.2 kg (200 lb 15.9 oz) 017 11:35 AM EST Height 190.5 cm (6' 3 ) 06/26/2017 11:3 5 AM EST Body Mass Index 25.12 06/26/2017 11:35 AM EST documented in this encounter Plan of Treatment Not on file documented as of this encounter Visit Diagnoses Not on filedocumented in this encounter
--- OUTSIDE RECORDS SUMMARY | 2024-06-08 17:49 | XMS_ITS | Encounter Summary ---
Author Organization Healthcare Address [address] [place] [address] Care Team Providers Care Lead Section Supervisor Name Role Phone Unavailable Primary Care Provider Unavailabl e Encounter Details Date Type Department Care Team (Late st Contact Info) Description 04/08/2015 [facility] En[facility] [address] [place] [address] Provider, MD Renetta [address] [place] [address] Social History Tobacco Use Types Packs/Day [...] Weight 86.2 kg (189 lb 15.9 oz) 04/08/2015 5:53 PM EDT Height 190.5 cm (6' 3 ) 04/08/2015 5:53 PM EDT Body Mass Index 23.75 04/08/2015 5:53 PM EDT documented in this encounter Plan of Treatment Not on file documented as of this encounter Visit Diagnoses Not on filedocumented in this encounter
--- OUTSIDE RECORDS SUMMARY | 2024-06-08 17:50 | XMS_ITS | Patient Health Record ---
Author Organization [facility] [address] Address [address] [place] [address] [place] [address] Care Team Providers Care Publications Designer Name Role Phone Sebastian Polanco Primary Care Provider Allergies Allergen (clinical drug ingredient) Drug/Non Drug Allergy documented on EMR Reaction Allergy Type Onset Date Status [place] (uncoded) SOA Allergy Acti ve Medications Medication SIG (Take, Route, Frequency, Duration) Notes Start Date End Date Status Aerochamber Plus 1 use with inhalor as directed as directed for 1 08/29/2013 Active Aspirin EC 81 mg 1 tab(s) orally once a day Active multivitamin Multiple Vitamins 1 cap(s) orally once a day for 30 day(s) Active acetaminophen 500 mg 2 tab(s) orally rachel ry 6 hours prn Active furosemide 20 mg 1 tab(s) orally once a day for 30 day(s) 05/05/2021 Active doxazosin 2MG 1 tab(s) orally twic e a day for 90 days Active PARoxetine Hydrochloride 20 mg 1 tab(s) orally once a day for 30 day(s) 07/27/2020 Active triamcinolone topical 0.5% 1 heaven applied topically 2 times a day for 7 day(s) 05/05/2021 Active Bystolic 5 mg 1 tab(s) orally once a day for 90 Active Symbicort 80-4.5 2 puffs PO BID for 3 0 days Active Immunizations Vaccine Route Administration Date Status Comme nts Fluvirin--Influenza vaccine 3+ year IM Intramuscular 05/25/2007 Administered Fluvirin--Influenza vaccine 3+ year Unknown 05/19/2008 Administered Fluvirin--Influenza vaccine 3+ year Unknown 04/27/2009 Administered Fluvirin--Influenza vaccine 3+ year IM Intramuscular 05/04/2010 Administered Fluvirin--Influenza vaccine 3+ year IM Intramuscular 04/23/2012 Administered Fluzone High Dose IM Intramuscular 04/17/2018 Administered Fluzone High Dose IM Intramuscular 04/15/2019 Administered Fluzone High Dose IM Intramuscular 03/30/2020 Administered Fluzone High Dose IM Intramuscular 05/05/2021 Administered Influenza (Fluzone)--Medicare only Unknown 07/25/2011 Administered Influenza (Fluzone)--Medicare only Unknown 05/20/2013 Administered Influenza (Fluzone)--Medicare only IM Intramuscular 05/06/2014 Administered Influenza (Fluzone)--Medicare only IM Intramuscular 05/17/2015 Administered Influenza (Fluzone)--Medicare only IM Intramuscular 04/14/2016 Administered Influenza (Fluzone)--Medicare only IM Intramuscular 05/02/2017 Administered Pneumococcal Vaccine IM Intramuscular 04/23/2012 Administe red Prevnar PCV-13 (Pneumococcal conjugate 13) IM Intramuscular 05/15/2016 Administered Tenivac (Td) 7 + yrs Unknown 08/05/2013 Administered Problems Problem Type SNOMED Code ICD Code Onset Dates Problem Status W/U Status Risk Notes Problem 09713595 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) Active confirmed Problem 1123149 Supraventricular tachycardia (I47.1) Active confirmed Problem 58120950 Allergic rhiniti s (J30.9) Active confirmed Problem 92516809 Essential hypertension (I10) Active confirmed Problem 361112976 Hyperlipemia, 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 Problem 611943842 Asthma (J45.909) Active confirmed Problem 421557473 COPD exacerbatio n (J44.1) Active confirmed Problem 33944027 Idiopathic peripheral neuropathy (G60.9) Active confirmed Problem 430627464 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 Problem 654649919 Frequent falls (R29.6) Active confirmed Problem 11710057 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) Active confirmed Problem 57872228 Post concussion syndrome (F07.81) Active confirmed Problem 22301978 Sacroiliac inflammation (M46.1) Active confirmed Problem 01957463 Sciatic leg pain (M54.30) Active confirmed Problem 19050724 Right sided sciatica (M54.31) Active confirmed Problem 113225923 TIA (transient ischemic attack) (G45.9) Active confirmed Problem 552878240 History of pulmonary embolism (Z86.711) Active confirmed Problem 255690214 Anticoagulant long-term use (Z79.01) Active confirmed Problem 8923133875613 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) Active confirmed Problem 310903702701331 Pulmonary emboli sm and infarction (I26.99) Active confirmed Problem 273772947 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, 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) Active confirmed Problem 64211554 Venous stasis dermatitis of both lower extremities (I87.2) Active confirmed Problem 3018840 Periorbital hematoma of right eye (H05.231) Active confirmed Problem 05159689 Ventricular ecto py (I49.3) Active confirmed Plan Of Treatment Pending Test Test Name Order Date X ray : Chest 07/05/2006 Ultrasound : Carotids 12/24/2006 Urinalysis 08/19/2014 X ray : Tib/Fib, Left 07/05/2006 EKG : In House 12/24/2006 Physical Therapy 08/21/2008 Physical Therapy 08/25/2008 Physical Therapy 02/15/2017 CT Scan : Head, with/without contrast Doppler: Venous, L Lower Extremity 05/02 Holter Monitor, 48 hour 02/04/2019 H-VITAMIN B12 10/09/2016 H-PT/INR 02/08/2012 H-PT/INR 02/10/2012 H-PT/INR 02/13/2012 H-ANTITHROMBIN III,ANTIGEN 02/28/2017 H-PROTEIN C ACTIVITY 02/28/2017 H-PROTEIN S ACTIVITY 02/28/2017 H-RAPID PLASMA REAGIN 10/09/2016 C-URIC ACID 10/02/2011 H-PTT 08/18/2013 Pulmonary Function Test- Complete 2013 M-Prostate Specific Ag, Diagnost 019 Insurance Providers Payer Name Payer Address Payer Phone Subscriber Number Group Number Insured Name Patient Relationship to Insured Coverage Start Date Coverage End Date [place] [address] [place] [place] [address] [id number] Isaias Garza Self - patient is the insured 05/01/200 4 [employer] [address] [place] [id number] Isaias Garza Self - patient is the insured Medications Administered Medication Instructions Date of Administration Dosage Notes Ceftriaxone 500 04/17/2014 1 g Triamcinolone Acetonide 40mg Injection 01/02/2018 1 mL Triamcinolone Acetonide 40mg Injection 12/09/2020 1 mL Kenalog 09/22/2013 1 Kenalog 02/10/2014 1 Kenalog 06/15/2015 1 mL Kenalog 04/28/2016 1 mL Kenalog 07/14/2016 1 mL Kenalog 10/26/2016 1 mL Medical (General) History Medical History History ICD Code hypertension DVT/pulmonary embolism hernia repair irregular HR arthritis in his knee- receives injectio ns HTN [Hypertension] Pulmonary embolism and infarction, other DVT or embolism of distal lower extremit y BPH without obstruction/lower urinary tr act symptoms colonoscopy 12/07 with multiple tubular a denoma Surgical History Surgery Date(Month/Year) rotator cuff tear repair Colon Resection 2012 hernia repair 07/2014 lt knee replacement 05/2016 back 08/2017 back 11/2017 Hospitalization History Reason Date(Month/Year) chest pain 2007 colon resection, GI bleed 2011 Elevated bp/mini stroke 06/2020
--- OUTSIDE RECORDS SUMMARY | 2024-06-08 17:50 | XMS_ITS | Encounter Summary ---
Author Organization Healthcare Address [address] [place] [address] Care Team Providers Care [employer] Founder Name Role Phone Unavailable Primary Care Provider Unavailabl e Encounter Details Date Type Department Care Team (Late st Contact Info) Description 09/16/2013 [facility] Vit[facility] En[facility] [address] [place] [address] Provider, MD Renetta [address] [place] [address] Social History Tobacco Use Types Packs/Day [...] - Inhaled Oxygen Concentration - - Weight 89.6 kg (197 lb 7.1 oz) 09/16/2013 1:09 P M EST Height 190.5 cm (6' 3 ) 09/16/2013 1:09 PM EST Body Mass Index 24.68 09/16/2013 1:09 PM EST documented in this encounter Plan of Treatment Not on file documented as of this encounter Visit Diagnoses Not on filedocumented in this encounter
--- OUTSIDE RECORDS SUMMARY | 2024-06-08 17:50 | XMS_ITS | Encounter Summary ---
Author Organization Healthcare Address [address] [place] [address] Care Team Providers Care Billing Checker Name Role Phone Unavailable Primary Care Provider Unavailabl e Encounter Details Date Type Department Care Team (Late st Contact Info) Description 02/25/2014 [facility] Vitals Encounter [facility] [address] [place] [address] Provider, MD Renetta [address] [place] [address] Social History Tobacco Use Types Packs/Day [...] - Inhaled Oxygen Concentration - - Weight 85.7 kg (189 lb) 02/25/2014 10:26 AM EDT Height 190.5 cm (6' 3 ) 02/25/2014 10:26 AM EDT Body Mass Index 23.62 02/25/2014 10:26 AM EDT documented in this encounter Plan of Treatment Not on file documented as of this encounter Visit Diagnoses Not on filedocumented in this encounter
[2024-06-08] MEDS: AZITHROMYCIN 500 MG in 0.9 % SODIUM CHLORIDE 250 ML 250 MG IV (18:47)
[2024-06-08] MEDS: ACETAMINOPHEN 325MG TAB 650 MG PO (18:56)
[2024-06-08 18:57] LABS: Lactic Acid Follow Up (RFLX 1) 1.2 mmol/L (0.7-2.1)
[2024-06-08 19:09] LABS: Troponin I 0.04 ng/ml (0.00-0.034)
--- NOTE | 2024-06-08 21:35 | P.HP_ITS ---
<Statement entered by Semaj Harry MD - 06/08/24 22:45> I personally examined patient and agree with TROY's plan of care. History of Present Illness *Admission Date: 06/08/24 *Reason for visit:: Found down at home for the last 48 hours, and rhabdo now also in atrial flu *History of present illness: This 83-year-old male who lives alone. Noting that his about 2 years ago after 60 years of marriage. Patient states he still able to mow his yard and pickle cutter leaves.. His son says he had not heard from him came up and apparently his father had fallen in the kitchen floor and may have been there for up to 2 days. Patient is not a good historian has mild short-term memory loss may be a early dementia. Son then informed me that his father would sit in a chair for long periods of time in the kitchen. He was unaware of the sacral ulcer that was found upon his admission. Unsure of length of time but apparently had started more than several weeks ago. Son noted that the patient had recently seen a corrugator machine operator, and had a corn removed from the right foot. This appears to be healing well. Upon arrival to the emergency room patient also was noted that he was in a flutter, also noting bruising to the back of right heel bruising to the middle of the back. Small scratch to the right foot. No other immediate signs of injury from the fall, x-rays were done showing no acute fractures but noting an infiltrate in the right upper lung. Patient is not in respiratory distress. After reviewing the patient with the emergency room provider I do agree that admission is necessary. I have talked to the son about planning and the son agrees that the father needs to stay in the hospital., Due to the right lung infiltrate, have consulted pulmonology., Noting old records from 2011 showing inguinal hernia repair but also a bowel resection, and in that note it mentions being on Eliquis for chronic PE. [facility] Disclaimer: The information contained in this section may have been updated after the patient was seen, as this information can be updated by other users. Medical History (Updated 06/08/24 @ 22:22 by Moustapha Alonso APRN) Keratosis Fissure in skin of foot Pre-ulcerative calluses Pain in both feet Edema of both feet Chest pain Laceration TIA (transient ischemic attack) Hypertensive urgency Fracture of sacrum Fracture of left distal radius Wrist fracture, left Gastrointestinal bleeding, lower Chronic pulmonary embolism Surgical History (Updated 06/08/24 @ 21:57 by Moustapha Alonso APRN) History of bowel resection H/O inguinal hernia repair 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 current occupational exposures/hazards: No caffeine: Yes Other Medical History Have you received the Flu Vaccine for this season: Yes Have you received the Pneumonia Vaccine: No Review of Systems Review of Systems Review of systems:: pertinent systems reviewed and negative unless documented below Review of systems (narrative): Son is at bedside, patient is encephalopathic unable to give any type of detailed history, noting that he is alert and eating peanut butter crackers at this time., Constitutional Constitutional: Reports as per HPI, Reports anorexia, Reports body ache(s) and Reports malaise Eyes Eyes: Reports as per HPI ENT Ears, Nose, Mouth, and Throat: Reports as per HPI and Reports disequilibrium *Cardiovascular Cardiovascular: Reports as per HPI *Respiratory Respiratory: Reports as per HPI *Gastrointestinal Gastrointestinal: Reports as per HPI *Genitourinary Genitourinary: Reports as per HPI *Musculoskeletal Musculoskeletal: Reports as per HPI, Reports back pain and Reports myalgias Comments: Patient rates his discomfort at this time is mild Integumentary/Breasts Skin/Breast: Reports as per HPI, Reports bleeding lesions, Reports dry skin, Reports lesions, Reports new lesions, Reports non-healing lesions and Reports skin ulcer Comments: Noting patient has apparently an old full-thickness sacral decubitus, from the fall has a known bruising area mid back at pressure point, also bruising to the back of both heels at Achilles tendon *Neurologic Neurologic: Reports as per HPI, Reports confusion, Reports disequilibrium and Reports memory loss Psychiatric Psychiatric: Reports as per HPI, Reports confusion and Reports memory loss Comments: Patient lost his of 60 years approximately 2 years ago.. Had noted to his son that he wished he just had went with her Endocrine Endocrine: Reports as per HPI Hematologic/Lymphatic Hematologic/Lymphatic: Reports as per HPI Allergic/Immunologic Allergic/Immunologic: Reports as per HPI Meds Home Medications and Allergies Home Medications ?Medication ?Instructions ?Recorded ?Confirmed ?Type nebivolol 5 mg tablet 5 mg PO HS Hypertension 06/26/20 06/08/24 History ibuprofen 600 mg tablet 600 mg PO Q6HP PRN Mild Pain #30 09/08/20 06/08/24 Rx tabs aspirin 325 mg tablet 325 mg PO DAILY heart healthy 09/13/20 06/08/24 History citalopram 20 mg tablet 20 mg PO DAILY 06/02/24 06/08/24 History diclofenac sodium 75 mg 75 mg PO BID 06/02/24 06/08/24 History tablet,delayed release furosemide 20 mg tablet 20 mg PO DAILY 06/02/24 06/08/24 History loratadine 10 mg tablet 10 mg PO DAILY 06/02/24 06/08/24 History losartan 25 mg tablet 25 mg PO DAILY 06/02/24 06/08/24 History spironolactone 25 mg tablet 25 mg PO DAILY 06/02/24 06/08/24 History New Prescriptions to Start Prescriptions: Allergies Allergy/AdvReac Type Severity Reaction Status Date / Time acetaminophen (From [facility]) Allergy Verified 06/02/24 08:44 hydrocodone (From [facility]) Allergy Verified 06/02/24 08:44 Exam Data for Last 24 hours Vital signs and Labs for Last 24 Hours: Temp Pulse Resp BP Pulse Ox O2 Del Method O2 Flow Rate 97.8 F 93 H 18 106/63 L 97 Nasal Cannula 2 06/08/24 19:41 06/08/24 19:41 06/08/24 19:41 06/08/24 19:41 06/08/24 19:41 06/08/24 21:00 06/08/24 21:00 Laboratory Results - last 24 hr 06/08/24 12:24: WBC 11.8 H, RBC 4.51 L, Hgb 14.8, Hct 43.7, MCV 97.0 H, MCH 32.7 H, MCHC 33.7, RDW 13.4, Plt Count 133 L, MPV 10.7 H, Neut % (Auto) 88.0 H, Lymph % (Auto) 4.6 L, [place] % (Auto) 6.7, Eos % (Auto) 0.4, Baso % (Auto) 0.2, Neut # (Auto) 10.4 H, Lymph # (Auto) 0.6 L, [place] # (Auto) 0.8, Eos # (Auto) 0.0, Baso # (Auto) 0.0, Total Counted 100, Neutrophils % (Manual) 91 H, Lymphocytes % (Manual) 2 L, Monocytes % (Manual) 7, Platelet Estimate Slight decrease, RBC Morphology Normal, HIV 1&2 Antibody Rapid Nonreactive 06/08/24 12:47: VBG pH 7.40, VBG pCO2 41.6, VBG pO2 36.4, VBG HCO3 24.9, VBG Total CO2 26.2, VBG O2 Saturation 72.3 H, VBG Base Excess 0.0, VBG Lactic Acid 2.9 H 06/08/24 13:18: Sodium 145, Potassium 4.0, Chloride 110 H, Carbon Dioxide 30, Anion Gap 9.0, BUN 35 H, Creatinine 0.90, Estimated Creat Clear 64, Estimated GFR 80, Est GFR ( Amer) 97, Glucose 170 H, Calcium 9.0, Total Bilirubin 1.3, AST 179 H, ALT 71, Alkaline Phosphatase 90, Total Creatine Kinase 4626 H*, Troponin I 0.03, Total Protein 6.2 L, Albumin 3.5, Globulin 2.7, Albumin/Globulin Ratio 1.3 06/08/24 15:17: Urine Color Yellow, Urine Appearance Clear, Urine pH 5.0, Ur Specific [place] 1.010, Urine Protein 1+ A, Urine Glucose (UA) Negative, Urine Ketones Negative, Urine Blood 3+ A, Urine Nitrate Negative, Urine Bilirubin Negative, Urine Urobilinogen 1.0, Ur Leukocyte Esterase Negative, Urine RBC None, Urine WBC 3-5, Ur Squamous Epith Cells None, Amorphous Sediment 1+, Urine Bacteria 1+ 06/08/24 16:20: Troponin I 0.03 06/08/24 18:30: Lactate 1.2, Troponin I 0.04 H I & O for Last 24 hours: Intake & Output 06/06/24 06/07/24 06/08/24 06/09/24 05:59 05:59 05:59 05:59 Weight 189 lb 9 oz Radiology Reports for the Last 24 Hours: Right lung infiltrate, easily seen on CT scan. Review of history found chronic PE in the, listed this also in 1 note in the past of being seen on a chest x- ray, but last chest x-ray that I was able to find did not show it. Constitutional Constitutional: mild distress, thin and chronically ill appearing Comments: 83-year-old male, sitting in the hospital bed with his son being able to feed him peanut butter crackers. Patient appears to be slightly confused mildly encephalopathic but is in no acute distress. *Routine HEENT Exam Head: Present normocephalic and atraumatic Eye: Present EOMI, PERRL and normal accommodation ENT: Present mucous membranes moist and nares patent *Routine Neck Exam Neck: Present supple and full ROM Comments: No sign of neck injury or tenderness found Routine Chest/Breast/Axilla Exam Chest wall: Present tenderness Comments: Patient reported some chest wall tenderness, but that it was mild and showing no discomfort but bruising noted mid back *Routine Respiratory Exam Respiratory: Present CTA bilaterally, normal respiratory effort, able to speak in complete sentences and symmetric chest movement Comments: CT scan was reviewed showing a right lung infiltrate but cannot be heard on auscultation both lungs equal bilaterally with equal expansion there is no cough *Routine Cardiovascular Exam Cardiovascular: Present RRR, Normal S1, Normal S2 and gallop Comments: Heart has unusual sounds with changing of intensity while listening. Rate is rather regular no significant murmur heard *Routine Abdominal Exam Abdominal: Present soft and normoactive bowel sounds Comments: Patient is able to eat showing no distress no signs of nausea abdominal exam is normal *Routine Rectal Exam Rectal:: deferred *Routine Genitalia Exam Genitalia:: deferred *Routine Extremities Exam Extremities: Present pulses intact Comments: As noted in history patient has terrible onychomycosis with nailbed thickening. Can see where recently a corn has been removed from the lateral side of the right foot there is a small scratch that appears that may have occurred after this but no sign of acute infection. Both heels right greater than left have bruising noted question pressure injury Routine Back/Spine/Pelvis Exam Back image: 2 1. Area of bruising 2. Full-thickness decubitus sacral ulcer 3. Possible pressure injury to both heels 4. *Routine Skin Exam Skin: Present dry, warm and normal turgor Comments: Skin except as noted above with the pressure injuries and bruising is intact it is warm, not showing normal turgor *Routine Neurological Exam Neurological: Present alert, CN II-XII intact, normal reflexes, altered mental status, normal tone, vision grossly intact and hearing grossly intact Comments: Patient appears confused, question encephalopathic versus dementia. 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 Self-care deficit with lying on floor for up to 48 hours having rhabdo and pressure injuries to skin 2. Atrial flutter: No history of this on taking it as of new onset 3. Right lung infiltrate: Unsure if this is acute or related to distant past medical history of chronic PE 4. Oxygen requirement: Patient needed O2 to keep saturations above 90% this is a new event, per son this has never been a problem with his dad Imaging and Cardiology CT scan - chest: Status: image reviewed by me Additional comments: Patient shows right lung infiltrate and upper aspect CT scan - abdomen: Status: image reviewed by me Additional comments: No acute findings CT scan - head: Status: image reviewed by me Additional comments: No sign of acute bleed or fracture Assessment and Plan *Assessment and plan (1) Rhabdomyolysis: Status: Acute Qualifiers: Rhabdomyolysis type: traumatic Encounter type: initial encounter Q ualified Code(s): T79.6XXA - Traumatic ischemia of muscle, initial encounter Category: Medical Code(s): M62.82 - Rhabdomyolysis (2) Atrial flutter: Status: Acute Qualifiers: Atrial flutter type: unspecified Qualified Code(s): I48.92 - Unspecified atrial flutter Category: Medical Code(s): I48.92 - Unspecified atrial flutter (3) Oxygen deficit: Status: Acute Category: Medical Code(s): R09.02 - Hypoxemia (4) Right upper lobe pulmonary infiltrate: Status: Acute Category: Medical Code(s): R91.8 - Other nonspecific abnormal finding of lung field (5) Sacral decubitus ulcer: Status: Acute Qualifiers: Pressure injury stage: stage 3 Qualified Code(s): L89.153 - Pressure ulcer of sacral region, stage 3 Category: Medical Code(s): L89.159 - Pressure ulcer of sacral region, unspecified stage (6) Acute encephalopathy: Status: Acute Category: Medical Code(s): G93.40 - Encephalopathy, unspecified (7) Self-care deficit: Status: Acute Category: Medical Code(s): Z78.9 - Other specified health status (8) Contusion, back: Status: Acute Qualifiers: Encounter type: initial encounter Laterality: unspecified laterality Q ualified Code(s): S20.229A - Contusion of unspecified back wall of thorax, initial encounter Category: Medical Code(s): S20.229A - Contusion of unspecified back wall of thorax, initial encounter (9) Pain of both heels: Status: Acute Category: Medical Code(s): M79.671 - Pain in right foot; M79.672 - Pain in left foot Plan 1. Related to fall with contusions rhabdo with an acute encephalopathy : Patient is being admitted to the hospital., Will start workup for any other skin breakdown that may take place over the next few days, evaluate for self- care needs making sure there is no signs of aspiration, will start with physical therapy occupational therapy and case management as long-term placement may need to be done if family cannot set up care in the home. 2. New oxygen requirement with right lung infiltrate: I have consulted pulmonary, will continue upon antibiotics O2 treatment as needed and started on DuoNebs 3. New onset atrial flutter: Will consult cardiology
--- NOTE | 2024-06-08 22:00 | PC.NURSE ---
patient passed nursing bedside swallow evaluation
[2024-06-09] VITALS (14 sets, daily range): BP systolic 90–152; BP diastolic 53–82; PULSE 60–130; RESP 16–18; TEMP 36.6–37.7; O2SAT 93–98; BMI 24.3
--- NOTE | 2024-06-09 00:28 | PC.NURSE ---
dsg on coccyx changed and cleaned with hebiclens. heel protectors placed and heels elevated. see skin notes in bio.
[2024-06-09] MEDS: LEVALBUTEROL 1.25MG/3ML NEB 1.25 MG IH ×3 (06:28→18:34)
--- NOTE | 2024-06-09 06:34 | ECG_ITS ---
APPROVED REPORT Exam: Resting ECG HR:112 bpm ECG Measurements Heart Rate 112 AXES QRSd 101 QRS -42 QT 322 T 62 QTc 388 Conclusion ATRIAL FIBRILLATION WITH RAPID VENTRICULAR RESPONSE WITH ABERRANT CONDUCTION OR VENTRICULAR PREMATURE COMPLEXES LEFT AXIS DEVIATION [QRS AXIS < -30] SEPTAL MYOCARDIAL INFARCTION , PROBABLY OLD [40+ ms Q WAVE IN V1/V2] ABNORMAL ECG UNCONFIRMED REPORT Electronically signed by : Sebastian Polanco MD 06/11/2024 10:30:17
--- NOTE | 2024-06-09 06:41 | EXP.EVENT.NO ---
problem morning EKG showed the patient was in A-fib, that is a difference than the one that was done in the ER exam: Patient is stable no changes heart rate about 115 plan. Have changed Lovenox from 9 AM to now. 1 dose given will give report to the oncoming daytime provider which should be in 15 minutes. Present vital signs are stable
[2024-06-09 06:49] LABS: Alanine Aminotransferase 82 U/L (12-78); Albumin/Globulin Ratio 1.2 (1.1-1.8); Alkaline Phosphatase 113 U/L (38-126); Anion Gap 8.9 mEq/L (5-15); Aspartate Amino Transferase 136 U/L (17-59); Blood Urea Nitrogen 27 mg/dl (9-20); Calcium 8.6 mg/dl (8.4-10.2); Carbon Dioxide 28 mmol/L (22.0-30.0); Chloride 115 mmol/L (98-107); Creatinine Clearance Estimated 66 mL/min (50-200); Estimated Glomerular Filt Rate 92 ml/min (>60); GFR (African American) 111 ML/MIN (>60); Globulin 2.5 g/dL (1.3-3.2); Glucose 139 mg/dl (74-100); Magnesium 2.6 mg/dl (1.6-2.3); Potassium 3.9 mmoL/L (3.5-5.1); Sodium 148 mmol/L (136-145); Total Protein,Serum 5.5 g/dl (6.3-8.2)
[2024-06-09 07:53] LABS: Basophils % 0.1 % (0.1-2.0); Hematocrit 44.8 % (42.0-52.0); Hemoglobin 14.7 g/dL (14.1-18.0); Lymphocytes # 0.7 K/mm3 (0.7-4.5); Lymphocytes % 6.2 % (10-50); Mean Corpuscular HGB Conc 32.7 g/dL (31.8-35.4); Mean Corpuscular Hemoglobin 32.3 pg (27.0-31.2); Mean Platelet Volume 10.4 fl (7.4-10.4); Monocytes # 0.8 K/mm3 (0.1-1.0); Monocytes % 7.6 % (1.7-9.3); Neutrophils # 9.4 K/mm3 (1.8-7.8); Platelet Count 106 K/mm3 (142-424); Red Blood Count 4.53 M/mm3 (4.60-6.20); Red Cell Distribution Width 13.4 % (11.5-17.5); White Blood Count 10.9 K/mm3 (4.8-10.8)
[2024-06-09 07:54] LABS: MANUAL DIFFERENTIAL MANUAL DIFFERENTIAL (MANUAL DIFF)
[2024-06-09 08:24] LABS: Creatine Kinase 2038 U/L (55-170)
[2024-06-09 08:29] LABS: Lymphocytes % 17 % (10-50); Monocytes % 2 % (2-9); Neutrophils % 81 % (42-76); Total Cells Counted 100
[2024-06-09 08:30] LABS: Platelet Estimate Slight Decrease; RBC Morphology Normal
[2024-06-09 08:34] LABS: Free T4 (Free Thyroxine) 1.34 ng/dl (0.78-2.19)
--- NOTE | 2024-06-09 08:41 | EXP.SURG.CON ---
History of Present Illness *Admission Date: 06/08/24 *Reason for visit:: To evaluate sacral ulcer, question undermining and fluid. . . *History of present illness: Patient is a pleasant 83-year-old male from [facility]. Patient's family had not heard from him for a couple days and noted that he had fallen in the kitchen and been there for approximately 2 days. Patient does sit in chair for prolonged periods of time. He was brought to the emergency department where upon evaluation he was found to have soft tissue wound posterior to the coccyx with evidence of some eschar and necrosis. He was noted to have findings consistent with rhabdomyolysis. CT scan of the chest revealed possible right upper lobe pneumonia. He was admitted for inpatient management. Surgical consultation was obtained. [facility] Disclaimer: The information contained in this section may have been updated after the patient was seen, as this information can be updated by other users. Medical History (Updated 06/08/24 @ 22:22 by Moustapha Alonso APRN) Keratosis Fissure in skin of foot Pre-ulcerative calluses Pain in both feet Edema of both feet Chest pain Laceration TIA (transient ischemic attack) Hypertensive urgency Fracture of sacrum Fracture of left distal radius Wrist fracture, left Gastrointestinal bleeding, lower Chronic pulmonary embolism Surgical History (Updated 06/08/24 @ 21:57 by Moustapha Alonso APRN) History of bowel resection H/O inguinal hernia repair 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 current occupational exposures/hazards: No caffeine: Yes Review of Systems ENT Ears, Nose, Mouth, and Throat: Reports disequilibrium *Neurologic Neurologic: Reports as per HPI, Reports confusion, Reports disequilibrium and Reports memory loss Psychiatric Psychiatric: Reports confusion and Reports memory loss Meds Home Medications and Allergies Home Medications ?Medication ?Instructions ?Recorded ?Confirmed ?Type nebivolol 5 mg tablet 5 mg PO HS 06/26/20 06/02/24 History ibuprofen 600 mg tablet 600 mg PO Q6HP PRN Mild Pain #30 09/08/20 06/08/24 Rx tabs aspirin 325 mg tablet 325 mg PO DAILY 09/13/20 06/02/24 History citalopram 20 mg tablet 20 mg PO DAILY 06/02/24 06/09/24 History diclofenac sodium 75 mg 75 mg PO BID 06/02/24 06/09/24 History tablet,delayed release furosemide 20 mg tablet 20 mg PO AM 06/02/24 06/09/24 History loratadine 10 mg tablet 10 mg PO DAILY 06/02/24 06/09/24 History losartan 25 mg tablet 25 mg PO DAILY 06/02/24 06/09/24 History spironolactone 25 mg tablet 25 mg PO DAILY 06/02/24 06/09/24 History New Prescriptions to Start Prescriptions: Allergies Allergy/AdvReac Type Severity Reaction Status Date / Time hydrocodone (From [facility]) Allergy Other Verified 06/09/24 00:41 Exam (Inpt) Vital signs and Labs for Last 24 Hours: Temp Pulse Resp BP Pulse Ox O2 Del Method O2 Flow Rate 98 F 70 18 109/58 L 95 Nasal Cannula 2 06/09/24 07:53 06/09/24 07:53 06/09/24 07:53 06/09/24 07:53 06/09/24 07:53 06/09/24 07:53 06/09/24 07:53 Laboratory Results - last 24 hr 06/08/24 12:24: WBC 11.8 H, RBC 4.51 L, Hgb 14.8, Hct 43.7, MCV 97.0 H, MCH 32.7 H, MCHC 33.7, RDW 13.4, Plt Count 133 L, MPV 10.7 H, Neut % (Auto) 88.0 H, Lymph % (Auto) 4.6 L, [place] % (Auto) 6.7, Eos % (Auto) 0.4, Baso % (Auto) 0.2, Neut # (Auto) 10.4 H, Lymph # (Auto) 0.6 L, [place] # (Auto) 0.8, Eos # (Auto) 0.0, Baso # (Auto) 0.0, Total Counted 100, Neutrophils % (Manual) 91 H, Lymphocytes % (Manual) 2 L, Monocytes % (Manual) 7, Platelet Estimate Slight decrease, RBC Morphology Normal, HIV 1&2 Antibody Rapid Nonreactive 06/08/24 12:47: VBG pH 7.40, VBG pCO2 41.6, VBG pO2 36.4, VBG HCO3 24.9, VBG Total CO2 26.2, VBG O2 Saturation 72.3 H, VBG Base Excess 0.0, VBG Lactic Acid 2.9 H 06/08/24 13:18: Sodium 145, Potassium 4.0, Chloride 110 H, Carbon Dioxide 30, Anion Gap 9.0, BUN 35 H, Creatinine 0.90, Estimated Creat Clear 64, Estimated GFR 80, Est GFR ( Amer) 97, Glucose 170 H, Calcium 9.0, Total Bilirubin 1.3, AST 179 H, ALT 71, Alkaline Phosphatase 90, Total Creatine Kinase 4626 H*, Troponin I 0.03, Total Protein 6.2 L, Albumin 3.5, Globulin 2.7, Albumin/Globulin Ratio 1.3 06/08/24 15:17: Urine Color Yellow, Urine Appearance Clear, Urine pH 5.0, Ur Specific [place] 1.010, Urine Protein 1+ A, Urine Glucose (UA) Negative, Urine Ketones Negative, Urine Blood 3+ A, Urine Nitrate Negative, Urine Bilirubin Negative, Urine Urobilinogen 1.0, Ur Leukocyte Esterase Negative, Urine RBC None, Urine WBC 3-5, Ur Squamous Epith Cells None, Amorphous Sediment 1+, Urine Bacteria 1+ 06/08/24 16:20: Troponin I 0.03 06/08/24 18:30: Lactate 1.2, Troponin I 0.04 H 06/09/24 05:30: WBC 10.9 H, RBC 4.53 L, Hgb 14.7, Hct 44.8, MCV 99.0 H, MCH 32.3 H, MCHC 32.7, RDW 13.4, Plt Count 106 L, MPV 10.4, Neut % (Auto) 86.0 H, Lymph % (Auto) 6.2 L, [place] % (Auto) 7.6, Eos % (Auto) 0.0 L, Baso % (Auto) 0.1, Neut # (Auto) 9.4 H, Lymph # (Auto) 0.7, [place] # (Auto) 0.8, Eos # (Auto) 0.0, Baso # (Auto) 0.0, Total Counted 100, Neutrophils % (Manual) 81 H, Lymphocytes % (Manual) 17, Monocytes % (Manual) 2, Platelet Estimate Slight decrease, RBC Morphology Normal, Sodium 148 H, Potassium 3.9, Chloride 115 H, Carbon Dioxide 28, Anion Gap 8.9, BUN 27 H, Creatinine 0.80, Estimated Creat Clear 66, Estimated GFR 92, Est GFR ( Amer) 111, Glucose 139 H, Calcium 8.6, Magnesium 2.6 H, Total Bilirubin 1.0, AST 136 H, ALT 82 H, Alkaline Phosphatase 113, Total Protein 5.5 L, Albumin 3.0 L D, Globulin 2.5, Albumin/Globulin Ratio 1.2, Free T4 1.34 I & O for Labs for Last 24 Hours: Intake & Output 06/06/24 06/07/24 06/08/24 06/09/24 11:59 11:59 11:59 11:59 Intake Total 730 / 730 Output Total 0 / 0 Balance 730 / 730 Weight 189 lb 8.996 oz Comment:: Nursing photos reviewed. In the posterior coccygeal region there is evidence of pressure ulceration with some eschar necrosis of the skin. This does not appear to be necessarily infected at this time. Results Labs 06/09/24 05:30 06/09/24 05:30 Labs: Laboratory Results - last 24 hr 06/08/24 12:24: WBC 11.8 H, RBC 4.51 L, Hgb 14.8, Hct 43.7, MCV 97.0 H, MCH 32.7 H, MCHC 33.7, RDW 13.4, Plt Count 133 L, MPV 10.7 H, Neut % (Auto) 88.0 H, Lymph % (Auto) 4.6 L, [place] % (Auto) 6.7, Eos % (Auto) 0.4, Baso % (Auto) 0.2, Neut # (Auto) 10.4 H, Lymph # (Auto) 0.6 L, [place] # (Auto) 0.8, Eos # (Auto) 0.0, Baso # (Auto) 0.0, Total Counted 100, Neutrophils % (Manual) 91 H, Lymphocytes % (Manual) 2 L, Monocytes % (Manual) 7, Platelet Estimate Slight decrease, RBC Morphology Normal, HIV 1&2 Antibody Rapid Nonreactive 06/08/24 12:47: VBG pH 7.40, VBG pCO2 41.6, VBG pO2 36.4, VBG HCO3 24.9, VBG Total CO2 26.2, VBG O2 Saturation 72.3 H, VBG Base Excess 0.0, VBG Lactic Acid 2.9 H 06/08/24 13:18: Sodium 145, Potassium 4.0, Chloride 110 H, Carbon Dioxide 30, Anion Gap 9.0, BUN 35 H, Creatinine 0.90, Estimated Creat Clear 64, Estimated GFR 80, Est GFR ( Amer) 97, Glucose 170 H, Calcium 9.0, Total Bilirubin 1.3, AST 179 H, ALT 71, Alkaline Phosphatase 90, Total Creatine Kinase 4626 H*, Troponin I 0.03, Total Protein 6.2 L, Albumin 3.5, Globulin 2.7, Albumin/Globulin Ratio 1.3 06/08/24 15:17: Urine Color Yellow, Urine Appearance Clear, Urine pH 5.0, Ur Specific [place] 1.010, Urine Protein 1+ A, Urine Glucose (UA) Negative, Urine Ketones Negative, Urine Blood 3+ A, Urine Nitrate Negative, Urine Bilirubin Negative, Urine Urobilinogen 1.0, Ur Leukocyte Esterase Negative, Urine RBC None, Urine WBC 3-5, Ur Squamous Epith Cells None, Amorphous Sediment 1+, Urine Bacteria 1+ 06/08/24 16:20: Troponin I 0.03 06/08/24 18:30: Lactate 1.2, Troponin I 0.04 H 06/09/24 05:30: WBC 10.9 H, RBC 4.53 L, Hgb 14.7, Hct 44.8, MCV 99.0 H, MCH 32.3 H, MCHC 32.7, RDW 13.4, Plt Count 106 L, MPV 10.4, Neut % (Auto) 86.0 H, Lymph % (Auto) 6.2 L, [place] % (Auto) 7.6, Eos % (Auto) 0.0 L, Baso % (Auto) 0.1, Neut # (Auto) 9.4 H, Lymph # (Auto) 0.7, [place] # (Auto) 0.8, Eos # (Auto) 0.0, Baso # (Auto) 0.0, Total Counted 100, Neutrophils % (Manual) 81 H, Lymphocytes % (Manual) 17, Monocytes % (Manual) 2, Platelet Estimate Slight decrease, RBC Morphology Normal, Sodium 148 H, Potassium 3.9, Chloride 115 H, Carbon Dioxide 28, Anion Gap 8.9, BUN 27 H, Creatinine 0.80, Estimated Creat Clear 66, Estimated GFR 92, Est GFR ( Amer) 111, Glucose 139 H, Calcium 8.6, Magnesium 2.6 H, Total Bilirubin 1.0, AST 136 H, ALT 82 H, Alkaline Phosphatase 113, Total Protein 5.5 L, Albumin 3.0 L D, Globulin 2.5, Albumin/Globulin Ratio 1.2, Free T4 1.34 Assessment and Plan *Assessment and plan (1) Sacral decubitus ulcer: Status: Acute Qualifiers: Pressure injury stage: stage 3 Qualified Code(s): L89.153 - Pressure ulcer of sacral region, stage 3 Category: Medical Code(s): L89.159 - Pressure ulcer of sacral region, unspecified stage Plan No need for urgent surgical debridement at this time. May be reasonable for CT scan to rule out deep soft tissue infection/abscess. Await physical therapy/wound care assessment.
[2024-06-09 08:48] LABS: Thyroid Stimulating Hormone 1.35 uIU/mL (0.465-4.68)
--- NOTE | 2024-06-09 08:56 | HMH.PHAINT1 ---
Pharmacy Intervention Comments: HOME MEDICATIONS VERIFIED VIA OUTPATIENT PHARMACY AND PATIENT INTERVIEW
[2024-06-09] MEDS: Dex 5% in 0.45% NaCl 1,000 ML 100 ML IV ×2 (09:08→22:42)
[2024-06-09] MEDS: PIPERCILLIN/TAZO 3.375 GM in 0.9 % SODIUM CHLORIDE 50 ML IV ×2 (09:08→16:39)
[2024-06-09] MEDS: ENOXAPARIN 100MG/ML SYRINGE 85 MG SUBCUT (09:09)
[2024-06-09] MEDS: LOSARTAN 25 MG 1 EACH PO (09:10)
[2024-06-09] MEDS: NEBIVOLOL 5 MG 1 EACH PO (09:10)
[2024-06-09] MEDS: PT OWN MED *CITALOPRAM 20 MG TAB 1 EACH PO (09:11)
[2024-06-09] MEDS: ASPIRIN 325MG TABLET 325 MG PO (09:12)
[2024-06-09] MEDS: SODIUM CHLORIDE 3% 15ML NEB 3 ML IH (09:22)
--- NOTE | 2024-06-09 09:23 | CA_ITS ---
APPROVED REPORT EXAM: Comprehensive 2D, Doppler, and color-flow Echocardiogram Tape Making Machine Operator: Octavia Patrick CRT Ht: 6 ft 2 in Wt: 189lbs BSA: 2.12 BP: 109/58 mmHg Indications: COPD, CVA/TIA, Palpitations, Atrial Flutter, Hypertension/HDD, Rhabdomyolysis 2D Dimensions LA Volume 32.90 mL LA Volume Index 15.20 mL/m2 (M/F) 16-34 M-Mode Dimensions RVDd 3.99 cm (0.9-2.6) LA Diam 4.35 cm (1.9-4.0) LVDd 5.22 cm (3.5-5.7) LVDs 4.12 cm (3.5-5.7) IVSd 1.70 cm (0.6-1.1) PWd 0.81 cm (0.6-1.1) EF (Teich) 42.50% EPSs 1.70 cm FS 21.10% EDV (Teich) 130.70 mL ESV (Teich) 75.10 mL LV Diastology E Decel Time 193 (160-240 msec) E/A Ratio 1.42 Aortic Valve AO Peak GR. 3.80 mmHg Mitral Valve MV E Max Mk. 60.0 (40-130 cm/s) MV A Velocity 42.0 (40-130 cm/s) E/A Ratio 1.42 MV PHT 57.0 ms Pulmonary Valve PV Peak Velocity 216.0 (50-150 cm/s) Tricuspid Valve TR P. Velocity 210.00 cm/s RAP Estimate 10.00 mmHg RVSP 27.70 mmHg Left Ventricle The left ventricle is normal size. The left ventricular systolic function is normal. The left ventricular ejection fraction is within the normal range. There is increase in LV wall thickness. There is normal LV segmental wall motion. The left ventricular diastolic function is normal. LVEF is 60%. Right Ventricle Right ventricle is mildly dilated. Right ventricle is borderline hypokinetic. Atria The left atrium size is normal. The right atrium size is normal. There is no Doppler evidence of interatrial shunt. Aortic Valve The aortic valve is mildly thickened. There is no aortic valvular stenosis. Trace aortic regurgitation. Mitral Valve The mitral valve leaflets are mildly thickened. No evidence of mitral valve stenosis. Mild mitral regurgitation. Tricuspid Valve The tricuspid valve leaflets are thin and pliable. Trace tricuspid regurgitation. There is insufficient TR jet to estimate RVSP. Pulmonic Valve The pulmonary valve is normal in structure. Trace pulmonic regurgitation. Great Vessels The aortic root is normal in size. IVC is normal in size and collapses >50% with inspiration. Pericardium Trivial, anterior pericardial effusion is present. No echo indications of tamponade. Other Information Study Quality: Fair Conclusion Normal LV systolic function. Mild RV dilation with borderline reduction in RV function. Mild MR. Trivial, anterior pericardial effusion is present. No echo indications of tamponade. Electronically signed by : Laura Chapa MD 06/09/2024 22:54:26
--- NOTE | 2024-06-09 09:25 | HMH.PTEV ---
Physical Therapy Evaluation Rehab PT IP Evaluation Start: 06/08/24 19:51 Freq: ONCE Status: Active Protocol: Document 06/09/24 09:21 TRACEY (Rec: 06/09/24 09:25 TRACEY [id number]) Subjective/History History History Per H&P: This 83-year-old male who lives alone. Noting that his about 2 years ago after 60 years of marriage. 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 His son says he had not heard from him came up and apparently his father had fallen in the kitchen floor and may have been there for up to 2 days. Patient is not a good historian has mild short-term memory loss may be a early dementia. Son then informed me that his father would sit in a chair for long periods of time in the kitchen. He was unaware of the sacral ulcer that was found upon his admission. Unsure of length of time but apparently had started more than several weeks ago. Son noted that the patient had recently seen a automatic riveting machine operator, and had a corn removed from the right foot. This appears to be healing well. Subjective Subjective Pt is a questionable historian . Pt reports he lives home alone. Pt does have stairs but he usually avoids them. Pt does not own RW or cane. Pt reports he needed some help with mobility but was mostly IND. Pt still mowing and doing lawn work per his report. Pt not oriented to place or situation. New diagnosis of cancer in past 12 No months? Rehab PT IP Eval Objective Appearance Patient Behavior Appropriate,Cooperative Patient Orientation Person,Birthday Difficulty following instructions none Ambulation Patient Able to Ambulate Yes Ambulation Observation IP General Gait Pattern Observation Wide Based Gait Ambulation Distance (feet) 3 Ambulation Ability Minimal x 2 (25% assist) Balance Ability to Arise Able, uses arms to help Sitting Balance Steady, safe Standing Balance Unsteady Dynamic Sitting Balance Ability Good Transfers Bed Transfer Ability Moderate x 1 (50% assist) Sit to Stand Bed Transfer Ability Minimal x 2 (25% assist) Sit to Stand Chair Transfer Ability Minimal x 2 (25% assist) Rehab PT IP prob,goals,plan Problems Date of Evaluation: 06/09/24 PT IP Problems Bed Mobility,Transfers,Gait, Balance,Self care,Safety Rehab Potential Rehab Potential Good Plan PT Intervention Plan Bed Mobility,Transfers,Gait, Balance,Self care,Safety, Therapeutic Exercise Other Intervention Plan 1-2 times PT Plan Frequency Daily Duration LOS Discharge Goals Bed Transfer Ability Minimal x 1 (25% assist) Sit to Stand Chair Transfer Ability Minimal x 1 (25% assist) Ambulation Assistive Device Rolling Walker Ambulation Distance (feet) 15 Discharge Plan PT Discharge Plan Pt presents below baseline in functional mobility. Pt most appropriate for rehab placement upon d/c from [facility]. Pt not safe to return home alone d/t current level of mobility. Pt would benefit from skilled acute care PT while at [facility] to prevent further functional decline. Eval Complexity Eval Charge Codes 32736 - Moderate Complexity PHYSICIAN CERTIFICATION: I certify the specified therapy services for Isaias Garza are required, authorized, and reviewed every 30 days.
--- OUTSIDE RECORDS SUMMARY | 2024-06-09 09:33 | XMS_ITS | Encounter Summary ---
Author Organization Healthcare Address [address] [place] [address] Care Team Providers Care Bar Catcher Name Role Phone Unavailable Primary Care Provider Unavailabl e Encounter Details Date Type Department Care Team (Late st Contact Info) Description 02/25/2014 [facility] Vitals En[facility] [address] [place] [address] Provider, MD Renetta [address] [place] [id number] Social History Tobacco Use Types Packs/Day [...]
--- OUTSIDE RECORDS SUMMARY | 2024-06-09 09:33 | XMS_ITS | Encounter Summary ---
Author Organization Healthcare Address [address] [place] [address] Care Team Providers Care Paper Sorter Name Role Phone Unavailable Primary Care Provider Unavailabl e Encounter Details Date Type Department Care Team (Late st Contact Info) Description 11/23/2016 [facility] Vit[facility] [address] [place] [address] Provider, MD Renetta [address] [place] [id number] Social History Tobacco Use Types Packs/Day [...]
--- OUTSIDE RECORDS SUMMARY | 2024-06-09 09:33 | XMS_ITS | Encounter Summary ---
Author Organization Healthcare Address [address] [place] [address] Care Team Providers Care User Support Specialist Name Role Phone Unavailable Primary Care Provider Unavailabl e Encounter Details Date Type Department Care Team (Late st Contact Info) Description 12/14/2016 [facility] Vit[facility] [address] [place] [address] Provider, MD Renetta [address] [place] [id number] Social History Tobacco Use Types Packs/Day [...]
--- OUTSIDE RECORDS SUMMARY | 2024-06-09 09:33 | XMS_ITS | Encounter Summary ---
Author Organization Healthcare Address [address] [place] [address] Care Team Providers Care Installer Helper Name Role Phone Unavailable Primary Care Provider Unavailabl e Encounter Details Date Type Department Care Team (Late st Contact Info) Description 07/01/2014 [facility] Vitals En[facility] [address] [place] [address] Provider, MD Renetta [address] [place] [phone] Social History Tobacco Use Types Packs/Day [...]
--- OUTSIDE RECORDS SUMMARY | 2024-06-09 09:33 | XMS_ITS | Encounter Summary ---
Author Organization Healthcare Address [address] [place] [address] Care Team Providers Care Lather Apprentice Name Role Phone Unavailable Primary Care Provider Unavailabl e Encounter Details Date Type Department Care Team (Late st Contact Info) Description 04/08/2015 [facility] Vit[facility] En[facility] [address] [place] [address] Provider, MD Renetta [address] [place] [id number] Social History Tobacco Use Types Packs/Day [...]
--- OUTSIDE RECORDS SUMMARY | 2024-06-09 09:33 | XMS_ITS | Clinical Summary ---
Author Organization Healthcare Address [address] [place] [address] Care Team Providers Care Drug Regulatory Affairs Specialist Name Role Phone Sebastian Polanco MD Primary Care Provider [phone] Immunizations Name Administration Dates Next Due Influenza, [...] of Treatment Not on file Care Teams Drug Regulatory Affairs Specialist Relationship Specialty Start Date End Date Sebastian Polanco MD [address] [place] [id number] PCP - General 12/03/20
--- OUTSIDE RECORDS SUMMARY | 2024-06-09 09:33 | XMS_ITS | Encounter Summary ---
Author Organization Healthcare Address [address] [place] [address] Care Team Providers Care Decorator Store Name Role Phone Unavailable Primary Care Provider Unavailabl e Encounter Details Date Type Department Care Team (Late st Contact Info) Description 06/26/2017 [facility] [address] [place] [address] Provider, MD Renetta [address] [place] [phone] Social History Tobacco Use Types Packs/Day [...]
--- OUTSIDE RECORDS SUMMARY | 2024-06-09 09:33 | XMS_ITS | Encounter Summary ---
Author Organization Healthcare Address [address] [place] [address] Care Team Providers Care Box Repairer Name Role Phone Unavailable Primary Care Provider Unavailabl e Encounter Details Date Type Department Care Team (Late st Contact Info) Description 11/03/2016 [facility] Vit[facility] En[facility] [address] [place] [address] Provider, MD Renetta [address] [place] [address] Social History Tobacco Use Types Packs/Day [...]
--- OUTSIDE RECORDS SUMMARY | 2024-06-09 09:33 | XMS_ITS | Encounter Summary ---
Author Organization Healthcare Address [address] [place] [address] Care Team Providers Care Fish Drier Name Role Phone Unavailable Primary Care Provider Unavailabl e Encounter Details Date Type Department Care Team (Late st Contact Info) Description 03/08/2016 [facility] [address] [place] [address] Provider, MD Renetta [address] [place] [phone] Social History Tobacco Use Types Packs/Day [...]
--- OUTSIDE RECORDS SUMMARY | 2024-06-09 09:33 | XMS_ITS | Encounter Summary ---
Author Organization Healthcare Address [address] [place] [address] Care Team Providers Care Ribbon Lap Machine Tender Name Role Phone Unavailable Primary Care Provider Unavailabl e Encounter Details Date Type Department Care Team (Late st Contact Info) Description 01/09/2017 [facility] En[facility] [address] [place] [address] Provider, MD Renetta [address] [place] [phone] Social History Tobacco Use Types Packs/Day [...]
--- OUTSIDE RECORDS SUMMARY | 2024-06-09 09:33 | XMS_ITS | Encounter Summary ---
Author Organization Healthcare Address [address] [place] [address] Care Team Providers Care Knitter Operator Name Role Phone Unavailable Primary Care Provider Unavailabl e Encounter Details Date Type Department Care Team (Late st Contact Info) Description 04/26/2016 [facility] [address] [place] [address] Provider, MD Renetta [address] [place] [address] Social History Tobacco Use Types Packs/Day [...]
--- OUTSIDE RECORDS SUMMARY | 2024-06-09 09:33 | XMS_ITS | Encounter Summary ---
Author Organization Healthcare Address [address] [place] [address] Care Team Providers Care Sports Bookmaker Name Role Phone Unavailable Primary Care Provider Unavailabl e Encounter Details Date Type Department Care Team (Late st Contact Info) Description 09/16/2013 [facility] En[facility] [address] [place] [address] Provider, MD Renetta [address] [place] [phone] Social History Tobacco Use Types Packs/Day [...]
--- OUTSIDE RECORDS SUMMARY | 2024-06-09 09:33 | XMS_ITS | Encounter Summary ---
Author Organization Healthcare Address [address] [place] [address] Care Team Providers Care Open Pit Quarry Supervisor Name Role Phone Unavailable Primary Care Provider Unavailabl e Encounter Details Date Type Department Care Team (Late st Contact Info) Description 03/03/2015 [facility] [address] [place] [address] Provider, MD Renteta [address] [place] [id number] Social History Tobacco Use Types Packs/Day [...]
--- OUTSIDE RECORDS SUMMARY | 2024-06-09 09:34 | XMS_ITS | Patient Health Record ---
Author Organization [facility] [address] Address [address] [place] [address] Care Team Providers Care Professor Of Public Administration Name Role Phone Sebastian Polanco Primary Care Provider Allergies Allergen (clinical drug ingredient) Drug/Non Drug Allergy documented on EMR Reaction Allergy Type Onset Date Status [place] (uncoded) SOA Allergy Acti ve Medications Medication [...] Vaccine Route Administration Date Status Comme nts Tenivac (Td) 7 + yrs Unknown 08/05/2013 Administered Prevnar PCV-13 (Pneumococcal conjugate 13) IM Intramuscular 05/15/2016 Administered Pneumococcal Vaccine IM Intramuscular 04/23/2012 Administe red Influenza (Fluzone)--Medicare only Unknown 07/25/2011 Administered Influenza (Fluzone)--Medicare only Unknown 05/20/2013 Administered Influenza (Fluzone)--Medicare only IM Intramuscular 05/06/2014 Administered Influenza (Fluzone)--Medicare only IM Intramuscular 05/17/2015 Administered Influenza (Fluzone)--Medicare only IM Intramuscular 04/14/2016 Administered Influenza (Fluzone)--Medicare only IM Intramuscular 05/02/2017 Administered Fluzone High Dose IM Intramuscular 04/17/2018 Administered Fluzone High Dose IM Intramuscular 04/15/2019 Administered Fluzone High Dose IM Intramuscular 03/30/2020 Administered Fluzone High Dose IM Intramuscular 05/05/2021 Administered Fluvirin--Influenza vaccine 3+ year IM Intramuscular 05/25/2007 Administered Fluvirin--Influenza vaccine 3+ year Unknown 05/19/2008 Administered Fluvirin--Influenza vaccine 3+ year Unknown 04/27/2009 Administered Fluvirin--Influenza vaccine 3+ year IM Intramuscular 05/04/2010 Administered Fluvirin--Influenza vaccine 3+ year IM Intramuscular 04/23/2012 Administered Problems Problem Type SNOMED Code ICD Code Onset Dates Problem Status W/U Status Risk Notes Problem 48398178 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) Active confirmed Problem 5060909 Supraventricular tachycardia (I47.1) Active confirmed Problem 07636952 Allergic rhiniti s (J30.9) Active confirmed Problem 03373550 Essential hypertension (I10) Active confirmed Problem 136129218 Hyperlipemia, 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 Problem 902168556 Asthma (J45.909) Active confirmed Problem 517827355 COPD exacerbatio n (J44.1) Active confirmed Problem 59221669 Idiopathic peripheral neuropathy (G60.9) Active confirmed Problem 775292021 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 Problem 531244092 Frequent falls (R29.6) Active confirmed Problem 79647817 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) Active confirmed Problem 83837112 Post concussion syndrome (F07.81) Active confirmed Problem 08181550 Sacroiliac inflammation (M46.1) Active confirmed Problem 55019953 Sciatic leg pain (M54.30) Active confirmed Problem 34289871 Right sided sciatica (M54.31) Active confirmed Problem 937238332 TIA (transient ischemic attack) (G45.9) Active confirmed Problem 351238704 History of pulmonary embolism (Z86.711) Active confirmed Problem 833262495 Anticoagulant long-term use (Z79.01) Active confirmed Problem 9374190478889 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) Active confirmed Problem 602440041020621 Pulmonary emboli sm and infarction (I26.99) Active confirmed Problem 355853648 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, 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) Active confirmed Problem 34423659 Venous stasis dermatitis of both lower extremities (I87.2) Active confirmed Problem 7066686 Periorbital hematoma of right eye (H05.231) Active confirmed Problem 75798507 Ventricular ecto py (I49.3) Active confirmed Plan Of Treatment Pending Test Test Name Order Date X ray : Chest 07/05/2006 Ultrasound : Carotids 12/24/2006 Urinalysis 08/19/2014 X ray : Tib/Fib, Left 07/05/2006 EKG : In House 12/24/2006 Physical Therapy 02/15/2017 Physical Therapy 08/21/2008 Physical Therapy 08/25/2008 CT Scan : Head, with/without contrast Doppler: [...] End Date MEDICARE [place] [place] [address] [id number] Isaias Garza Self - patient is the insured 05[birth year]01[birth year] 4 [employer] [address] [place] [address] [id number] Isaias Garza Self - patient is the [...]
--- NOTE | 2024-06-09 09:35 | P.CONS_ITS ---
History of Present Illness History of present illness: Mr. Garza is a 83-year-old male presented to the ER after he was found down, chest x-ray upon admission found to be having pulmonary infiltrates and pulmonary was called for further evaluation and management. Patient admits worsening respiratory distress and coughing up blood. Sputum examined, dark black intermixed with phlegm. Will closely monitor. No laura hemoptysis appreciated. No significant smoking history, smoked when he was young for less than 10 pack years. Prior history of asthma using inhalers when he was young, not needing them in the last 10 years. [facility] Disclaimer: The information contained in this section may have been updated after the patient was seen, as this information can be updated by other users. Medical History (Updated 06/09/24 @ 10:51 by Elizabeth Randall MD) Acute respiratory failure with hypoxia Necrotizing pneumonia Hemoptysis Keratosis Fissure in skin of foot Pre-ulcerative calluses Pain in both feet Edema of both feet Chest pain Laceration TIA (transient ischemic attack) Hypertensive urgency Fracture of sacrum Fracture of left distal radius Wrist fracture, left Gastrointestinal bleeding, lower Chronic pulmonary embolism Surgical History (Updated 06/08/24 @ 21:57 by Moustapha Alonso APRN) History of bowel resection H/O inguinal hernia repair 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 current occupational exposures/hazards: No caffeine: Yes Review of Systems Constitutional Constitutional: Reports anorexia, Reports body ache(s) and Reports fatigue Eyes Eyes: Denies eye discharge, Denies dry eyes, Denies irritation and Denies itchy eyes ENT Ears, Nose, Mouth, and Throat: Reports disequilibrium, Denies lip swelling and Denies throat swelling *Cardiovascular Cardiovascular: Reports dyspnea and Reports dyspnea on exertion *Respiratory Respiratory: Reports change in phlegm color, Reports chest congestion, Reports cough, Reports dyspnea, Reports dyspnea on exertion, Reports excessive phlegm production, Reports hemoptysis, Denies pain on inspiration, Denies pain with cough and Reports wheezing *Gastrointestinal Gastrointestinal: Denies abdominal pain, Denies belching and Denies cramping *Musculoskeletal Musculoskeletal: Reports back pain, Reports myalgias and Reports other (No small joint swelling or Pain) *Neurologic Neurologic: Reports as per HPI, Reports confusion, Reports disequilibrium and Reports memory loss Psychiatric Psychiatric: Reports confusion and Reports memory loss Endocrine Endocrine: Reports fatigue and Denies heat intolerance Hematologic/Lymphatic Hematologic/Lymphatic: Denies easy bleeding and Denies lymphadenopathy Allergic/Immunologic Allergic/Immunologic: Denies itchy eyes, Denies lip swelling, Denies throat swelling and Reports wheezing Pulmonology Exam Inpatient Vital signs and Labs for Last 24 Hours: Temp Pulse Resp BP Pulse Ox O2 Del Method O2 Flow Rate 98 F 70 18 109/58 L 95 Nasal Cannula 2 06/09/24 07:53 06/09/24 09:22 06/09/24 09:22 06/09/24 07:53 06/09/24 07:53 06/09/24 07:53 06/09/24 07:53 Laboratory Results - last 24 hr 06/08/24 12:24: WBC 11.8 H, RBC 4.51 L, Hgb 14.8, Hct 43.7, MCV 97.0 H, MCH 32.7 H, MCHC 33.7, RDW 13.4, Plt Count 133 L, MPV 10.7 H, Neut % (Auto) 88.0 H, Lymph % (Auto) 4.6 L, Ford % (Auto) 6.7, Eos % (Auto) 0.4, Baso % (Auto) 0.2, Neut # (Auto) 10.4 H, Lymph # (Auto) 0.6 L, Ford # (Auto) 0.8, Eos # (Auto) 0.0, Baso # (Auto) 0.0, Total Counted 100, Neutrophils % (Manual) 91 H, Lymphocytes % (Manual) 2 L, Monocytes % (Manual) 7, Platelet Estimate Slight decrease, RBC Morphology Normal, HIV 1&2 Antibody Rapid Nonreactive 06/08/24 12:47: VBG pH 7.40, VBG pCO2 41.6, VBG pO2 36.4, VBG HCO3 24.9, VBG Total CO2 26.2, VBG O2 Saturation 72.3 H, VBG Base Excess 0.0, VBG Lactic Acid 2.9 H 06/08/24 13:18: Sodium 145, Potassium 4.0, Chloride 110 H, Carbon Dioxide 30, Anion Gap 9.0, BUN 35 H, Creatinine 0.90, Estimated Creat Clear 64, Estimated GFR 80, Est GFR ( Amer) 97, Glucose 170 H, Calcium 9.0, Total Bilirubin 1.3, AST 179 H, ALT 71, Alkaline Phosphatase 90, Total Creatine Kinase 4626 H*, Troponin I 0.03, Total Protein 6.2 L, Albumin 3.5, Globulin 2.7, Albumin/Globulin Ratio 1.3 06/08/24 15:17: Urine Color Yellow, Urine Appearance Clear, Urine pH 5.0, Ur Specific [place] 1.010, Urine Protein 1+ A, Urine Glucose (UA) Negative, Urine Ketones Negative, Urine Blood 3+ A, Urine Nitrate Negative, Urine Bilirubin Negative, Urine Urobilinogen 1.0, Ur Leukocyte Esterase Negative, Urine RBC None, Urine WBC 3-5, Ur Squamous Epith Cells None, Amorphous Sediment 1+, Urine Bacteria 1+ 06/08/24 16:20: Troponin I 0.03 06/08/24 18:30: Lactate 1.2, Troponin I 0.04 H 06/09/24 05:30: WBC 10.9 H, RBC 4.53 L, Hgb 14.7, Hct 44.8, MCV 99.0 H, MCH 32.3 H, MCHC 32.7, RDW 13.4, Plt Count 106 L, MPV 10.4, Neut % (Auto) 86.0 H, Lymph % (Auto) 6.2 L, Ford % (Auto) 7.6, Eos % (Auto) 0.0 L, Baso % (Auto) 0.1, Neut # (Auto) 9.4 H, Lymph # (Auto) 0.7, Ford # (Auto) 0.8, Eos # (Auto) 0.0, Baso # (Auto) 0.0, Total Counted 100, Neutrophils % (Manual) 81 H, Lymphocytes % (Manual) 17, Monocytes % (Manual) 2, Platelet Estimate Slight decrease, RBC Morphology Normal, Sodium 148 H, Potassium 3.9, Chloride 115 H, Carbon Dioxide 28, Anion Gap 8.9, BUN 27 H, Creatinine 0.80, Estimated Creat Clear 66, Estimated GFR 92, Est GFR ( Amer) 111, Glucose 139 H, Calcium 8.6, M agnesium 2.6 H, Total Bilirubin 1.0, AST 136 H, ALT 82 H, Alkaline Phosphatase 113, Total Creatine Kinase 2038 H* D, Total Protein 5.5 L, Albumin 3.0 L D, Globulin 2.5, Albumin/Globulin Ratio 1.2, TSH 1.35, Free T4 1.34 I & O for Labs for Last 24 Hours: Intake & Output 06/06/24 06/07/24 06/08/24 06/09/24 23:59 23:59 23:59 23:59 Intake Total 730 / 730 Output Total 0 / 0 Balance 730 / 730 0 / 0 Weight 189 lb 9 oz 189 lb 8.996 oz Constitutional: Present moderate distress Head: Present normocephalic and atraumatic ENT: Present normal exam, normal oropharynx and mucous membranes moist Neck: Present normal inspection and full ROM Respiratory: Present respiratory distress, rhonchi, diminished air movement and able to speak in complete sentences; Absent wheezes or crackles Cardiac: Present S1/S2, Tachycardia and radial pulses present GI: Present soft and distention; Absent tenderness or guarding Skin: Present intact; Absent cyanosis or jaundice Neuro: Present alert, awake and oriented x 3 Extremities: Present normal inspection; Absent clubbing or cyanosis Psychiatric: Present normal affect and cooperative Meds Home Medications and Allergies Home Medications ?Medication ?Instructions ?Recorded ?Confirmed ?Type nebivolol 5 mg tablet 5 mg PO DAILY 06/26/20 06/09/24 History ibuprofen 600 mg tablet 600 mg PO Q6HP PRN Mild Pain #30 09/08/20 06/08/24 Rx tabs citalopram 20 mg tablet 20 mg PO DAILY 06/02/24 06/09/24 History diclofenac sodium 75 mg 75 mg PO BID 06/02/24 06/09/24 History tablet,delayed release furosemide 20 mg tablet 20 mg PO AM 06/02/24 06/09/24 History loratadine 10 mg tablet 10 mg PO HS 06/02/24 06/09/24 History losartan 25 mg tablet 25 mg PO DAILY 06/02/24 06/09/24 History spironolactone 25 mg tablet 25 mg PO DAILY 06/02/24 06/09/24 History aspirin 81 mg tablet,delayed 81 mg PO DAILY 06/09/24 06/09/24 History release New Prescriptions to Start Prescriptions: Allergies Allergy/AdvReac Type Severity Reaction Status Date / Time hydrocodone (From [employer]) Allergy Other Verified 06/09/24 00:41 Results Laboratory Findings 06/09/24 05:30 06/09/24 05:30 Abnormal lab findings: Abnormal Labs 06/08/24 06/08/24 06/08/24 12:24 12:47 13:18 WBC 11.8 H RBC 4.51 L MCV 97.0 H MCH 32.7 H Plt Count 133 L MPV 10.7 H Neut % (Auto) 88.0 H Lymph % (Auto) 4.6 L Eos % (Auto) Neut # (Auto) 10.4 H Lymph # (Auto) 0.6 L Neutrophils % (Manual) 91 H Lymphocytes % (Manual) 2 L VBG O2 Saturation 72.3 H VBG Lactic Acid 2.9 H Sodium Chloride 110 H BUN 35 H Glucose 170 H Magnesium AST 179 H ALT Total Creatine Kinase 4626 H* Troponin I Total Protein 6.2 L Albumin Urine Protein Urine Blood 06/08/24 06/08/24 06/09/24 15:17 18:30 05:30 WBC 10.9 H RBC 4.53 L MCV 99.0 H MCH 32.3 H Plt Count 106 L MPV Neut % (Auto) 86.0 H Lymph % (Auto) 6.2 L Eos % (Auto) 0.0 L Neut # (Auto) 9.4 H Lymph # (Auto) Neutrophils % (Manual) 81 H Lymphocytes % (Manual) VBG O2 Saturation VBG Lactic Acid Sodium 148 H Chloride 115 H BUN 27 H Glucose 139 H Magnesium 2.6 H AST 136 H ALT 82 H Total Creatine Kinase 2038 H* D Troponin I 0.04 H Total Protein 5.5 L Albumin 3.0 L D Urine Protein 1+ A Urine Blood 3+ A Assessment and Plan *Assessment and plan (1) Hemoptysis: Status: Acute Category: Medical Code(s): R04.2 - Hemoptysis (2) Necrotizing pneumonia: Status: Acute Category: Medical Code(s): J85.0 - Gangrene and necrosis of lung (3) Acute respiratory failure with hypoxia: Status: Acute Category: Medical Code(s): J96.01 - Acute respiratory failure with hypoxia Plan Mr. Garza is a 83-year-old male presented to the ER after he was found down, chest x-ray upon admission found to be having pulmonary infiltrates and pulmonary was called for further evaluation and management. Patient admits worsening respiratory distress and coughing up blood. Sputum examined, dark black intermixed with phlegm. Will closely monitor. No laura hemoptysis appreciated. No significant smoking history, smoked when he was young for less than 10 pack years. Prior history of asthma using inhalers when he was young, not needing them in the last 10 years. Afebrile. Hemodynamically stable. Mild neutrophilic predominant leukocytosis. Blood gas venous upon admission did not show any evidence of hypoxic/hypercarbic respiratory failure. CTA upon admission evidence of pulmonary embolism. Dense consolidative/necrotizing airspace disease noted in the right upper lobe. No other consolidative/airspace changes noted. Chronic emphysematous changes noted Patient was initiated on ceftriaxone and azithromycin in the ER, antibiotics were escalated to Zosyn upon admission. Plan:- Continue Zosyn pending sputum culture results. Will have a low threshold to cover CAP pending sputum culture results Nebulization therapies Cusic scheduled Continue oxygen supplementation as needed to maintain O2 saturation goal of 90% and above
[2024-06-09] MEDS: AZITHROMYCIN 500 MG in 0.9 % SODIUM CHLORIDE 250 ML 250 MG IV (09:42)
--- NOTE | 2024-06-09 09:53 | HMH.OTEV ---
OT Inpatient Evaluation Rehab OT IP Evaluation Start: 06/08/24 21:21 Freq: ONCE Status: Active Protocol: Document 06/09/24 09:48 EDITH (Rec: 06/09/24 09:53 [id number] Rehab OT IP Assessment Subjective History Pt oriented x 2 on arrival. Pt agreeable to engage in therapy evaluation. Pt admitted on 06/08/24 due to Rhabdo. History and physical report: This 83-year-old male who lives alone. Noting that his about 2 years ago after 60 years of marriage. 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 His son says he had not heard from him came up and apparently his father had fallen in the kitchen floor and may have been there for up to 2 days. Patient is not a good historian has mild short- term memory loss may be a early dementia. Son then informed me that his father would sit in a chair for long periods of time in the kitchen . He was unaware of the sacral ulcer that was found upon his admission. Unsure of length of time but apparently had started more than several weeks ago. Son noted that the patient had recently seen a donations attendant, and had a corn removed from the right foot. This appears to be healing well. Subjective I did everything on my own. Pt reports prior to being in the hospital, he lived at home alone. Pt did demonstrate slight confusion at times, therefore information provided may not be trustworthy. He claims he was independent with all ADLs and IADLs. He also reports he did not use a walker or a cane during functional transfers. Objective Patient Orientation Person,Name Right Upper Extremity Gross ROM WFL Left Upper Extremity Gross ROM WFL Bed Mobility bed mobility-scooting,bed mobility - supine/sit Assist Level Moderate x 2 (50% assist) Transfer Training Sit/Stand/Step Transfer Assist Level Moderate x 2 (50% assist) Chair Transfer Ability Moderate x 2 (50% assist) Chair Transfer Technique Stand Step Pivot Lower Body Dressing Ability Maximum Assistance Rehab OT IP prob,goals,plan Problems Date of Evaluation: 06/09/24 OT IP Problems Bed Mobility,Transfers,Balance ,Self care,Safety Rehab Potential Rehab Potential Good Equipment Needs Assistive Devices Rolling / Wheeled Walker Plan OT intervention Plan Bed Mobility,Transfers,Balance ,Self care,Safety,Therapeutic Exercise OT Plan Frequency Daily Duration LOS Discharge Goals Bed Mobility Ability Assistance x1 Sit to Stand Chair Transfer Ability Moderate x 1 (50% assist) Chair Transfer Ability Moderate x 1 (50% assist) Chair Transfer Technique Sit to/from Ambulatory Chair Transfer Assistive Devices Rolling Walker Feeding Ability Assist with Tray Set Up Lower Body Dressing Ability Moderate Assistance Upper Body Dressing Ability Minimal Assistance Bathing Ability Moderate Assistance Performing Toilet Hygiene Ability Moderate Assistance Overall Commode/Toilet Transfer Ability Moderate Assistance Commode/Toilet Transfer Technique Sit to/from Ambulatory Commode/Toilet Transfer Assistive Grab Bars Devices Oral Care Assist Contact Guard Decrease in Endurance No Discharge Plan OT Discharge Plan Pt will continue to be seen for OT services while at [facility]. Pt would benefit most from short term rehab at SNF following hospital stay. Continued skilled therapy services is important in order for patient to improve strength, safety, endurance, ADL independence, and functional transfers to reach PLOF. Eval Complexity Eval Charge Codes 34374 - Moderate Complexity PHYSICIAN CERTIFICATION: I certify the specified therapy services for Isaias Garza are required, authorized, and reviewed every 30 days.
--- NOTE | 2024-06-09 10:15 | SW/DCPLANNER ---
Addendum entered by [facility] 06/11/24 12:20: [facility]ajma zhou/ [facility] is unable to accept patient. Patient will discharge to [place] [facility] level of care today. Addendum entered by [facility] 06/11/24 10:59: I have updated patient's son that patient is medically stable for discharge. Per [facility]/ [facility] information has been sent to clinical review before a decision can be made regarding acceptance. [facility] w[facility] stated that she is able to accept patient SNF level of care if [facility] denies. Son is fine w/ [facility] if [facility] can not accept. Per MD patient is ready for discharge today. Addendum entered by [facility] 06/10/24 15:06: Updated patient information faxed to [facility]. Addendum entered by [facility] 06/10/24 08:27: Naj[facility] stated that due to patient's confusion during bedside evaluation yesterday she will need to continue to follow prior to making a decision regarding accepting. I will continue to follow up w/ patient, family and MD. Addendum entered by [facility] 06/09/24 12:49: Naj[facility]hou/ [facility] will be onsite to speak w/ patient and family this afternoon. Original Note: I spoke w/ patient and his son regarding plans once medically stable for discharge. PT/OT evaluated patient and recommended SNF level of care. I discussed this w/ patient and he requested that I call and discuss this w/ his son but he is agreeable to whatever the MD recommends. Per patient's son they have already discussed SNF level of care and are agreeable to any facility in [place]. I will fax patient information to [facility] and [facility] this AM. Discharge date is unknown at this time. I will continue to follow up.
--- NOTE | 2024-06-09 10:52 | HMH.PTWOUND ---
Rehab Inpt Wound Evaluation Rehab IP Wound Evaluation Start: 06/08/24 19:01 Freq: ONCE Status: Active Protocol: Document 06/09/24 09:30 MAYCOL (Rec: 06/09/24 10:52 PHORNE [id number]) Rehab PT Wound Assessment Subjective Subjective Per H&P: This 83-year-old male who lives alone. Noting that his about 2 years ago after 60 years of marriage. Patient states he still able to mow his yard and tow picker leaves.. His son says he had not heard from him came up and apparently his father had fallen in the kitchen floor and may have been there for up to 2 days. Patient is not a good historian has mild short-term memory loss may be a early dementia. Son then informed me that his father would sit in a chair for long periods of time in the kitchen. He was unaware of the sacral ulcer that was found upon his admission. Unsure of length of time but apparently had started more than several weeks ago. Son noted that the patient had recently seen a costume shop coordinator, and had a corn removed from the right foot. This appears to be healing well. Pt also presents with sacral wound of unknown origin or timeframe upon admission. Wound Sacrum Wound Type Pressure Ulcer Is This a Chronic Wound Yes Wound Staging Unstageable Query Text:Stage I - Unbroken, red skin, no blanching. Stage II - Skin broken, superficial skin loss involving epidermis alone or also dermis. Partial loss of skin layers. Stage III - Pressure area involves epidermis, dermis and subcutaneous tissue, full thickness skin loss. Stage IV - Pressure area involves epidermis, subcutaneous tissue, bone and other supportive tissue. Full thickness skin loss with extensive destruction of underlying tissue and structures. Wound Length (cm) 8.0 Wound Width (cm) 10.0 Wound Bed Appearance [place],Peeling Skin,Necrotic Wound Margins Description Indistinct Surrounding Tissue Appearance [place] Wound Drainage Description Serosanguineous Drainage Amount Small Primary Dressing Composite Comment bordered foam dressing Plan/Recommendation Comment This wound presents as an unstageable pressure injury with possible deep tissue injury at its center. Unable to currently palpate bone or underlying structures, but this wound is likely to further evolve due to the dark red/purple area at its center . Unable to appropriately stage at this time due to this uncertainty of full depth of tissue necrosis. Currently [facility] staff is dressing the wound appropriately and performing pressure relief per protocols. Will follow to monitor evolution of this wound. Eval Complexity Eval Charge Codes 91643 - High Complexity PHYSICIAN CERTIFICATION: I certify the specified therapy services for Isaias Garza are required, authorized, and reviewed every 30 days.
--- NOTE | 2024-06-09 11:16 | EXP.CARD.CON ---
History of Present Illness History of Present Illness Consult date: 06/02/24 Requesting physician: Semaj Harry Chief complaint: fall History of present illness: This is an 83-year-old male with a past medical history of hypertension who presented to emergency department yesterday with complaints of a fall and being on the ground for suspected 2 days. Son reports he had not heard from patient so he went to check on him and found him laying in the kitchen. Upon presentation to emergency department patient was hemodynamically stable, confused and requiring nasal cannula to maintain oxygen saturation greater than 90%. Initial labs were negative for leukocytosis, platelets 133, hemoglobin normal, lactic 2.9, normal acid-base status with no critical electrolyte abnormalities or EMILY noted. CK was 4624 trending down to 2038 after fluids. Initial troponin was negative trending up to 0.04. Trauma scans were obtained and negative. A CTA chest was obtained which showed a right upper lobe opacity. He was also noted to have a stage IV wound over coccyx. Initial EKG showed atrial tachycardia at a rate of 113 with repeat EKG showing atrial flutter versus sinus tachycardia with a rate of 112. Patient was admitted for further evaluation for rhabdomyolysis, right upper lobe infiltrate and new onset A-fib flutter. This morning patient is resting comfortably up to bedside in a chair. He remains in a flutter with a rate in the low 100s. Echocardiogram is pending. Patient denies chest pain or soa. [facility] Disclaimer: The information contained in this section may have been updated after the patient was seen, as this information can be updated by other users. Medical History (Updated 06/09/24 @ 10:51 by Elizabeth Randall MD) Acute respiratory failure with hypoxia Necrotizing pneumonia Hemoptysis Keratosis Fissure in skin of foot Pre-ulcerative calluses Pain in both feet Edema of both feet Chest pain Laceration TIA (transient ischemic attack) Hypertensive urgency Fracture of sacrum Fracture of left distal radius Wrist fracture, left Gastrointestinal bleeding, lower Chronic pulmonary embolism Surgical History (Updated 06/08/24 @ 21:57 by Moustapha Alonso APRN) History of bowel resection H/O inguinal hernia repair 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 current occupational exposures/hazards: No caffeine: Yes Review of Systems Review of Systems Review of systems:: pertinent systems reviewed and negative unless documented below Constitutional Comments: fall ENT Ears, Nose, Mouth, and Throat: Reports disequilibrium *Neurologic Neurologic: Reports as per HPI, Reports confusion, Reports disequilibrium and Reports memory loss Psychiatric Psychiatric: Reports confusion and Reports memory loss Exam Data for Last 24 hours Vital signs and Labs for Last 24 Hours: Temp Pulse Resp BP Pulse Ox O2 Del Method O2 Flow Rate 98 F 70 18 109/58 L 95 Room Air 2 06/09/24 07:53 06/09/24 09:22 06/09/24 09:22 06/09/24 07:53 06/09/24 07:53 06/09/24 09:00 06/09/24 07:53 Laboratory Results - last 24 hr 06/08/24 12:24: WBC 11.8 H, RBC 4.51 L, Hgb 14.8, Hct 43.7, MCV 97.0 H, MCH 32.7 H, MCHC 33.7, RDW 13.4, Plt Count 133 L, MPV 10.7 H, Neut % (Auto) 88.0 H, Lymph % (Auto) 4.6 L, [place] % (Auto) 6.7, Eos % (Auto) 0.4, Baso % (Auto) 0.2, Neut # (Auto) 10.4 H, Lymph # (Auto) 0.6 L, [place] # (Auto) 0.8, Eos # (Auto) 0.0, Baso # (Auto) 0.0, Total Counted 100, Neutrophils % (Manual) 91 H, Lymphocytes % (Manual) 2 L, Monocytes % (Manual) 7, Platelet Estimate Slight decrease, RBC Morphology Normal, HIV 1&2 Antibody Rapid Nonreactive 06/08/24 12:47: VBG pH 7.40, VBG pCO2 41.6, VBG pO2 36.4, VBG HCO3 24.9, VBG Total CO2 26.2, VBG O2 Saturation 72.3 H, VBG Base Excess 0.0, VBG Lactic Acid 2.9 H 06/08/24 13:18: Sodium 145, Potassium 4.0, Chloride 110 H, Carbon Dioxide 30, Anion Gap 9.0, BUN 35 H, Creatinine 0.90, Estimated Creat Clear 64, Estimated GFR 80, Est GFR ( Amer) 97, Glucose 170 H, Calcium 9.0, Total Bilirubin 1.3, AST 179 H, ALT 71, Alkaline Phosphatase 90, Total Creatine Kinase 4626 H*, Troponin I 0.03, Total Protein 6.2 L, Albumin 3.5, Globulin 2.7, Albumin/Globulin Ratio 1.3 06/08/24 15:17: Urine Color Yellow, Urine Appearance Clear, Urine pH 5.0, Ur Specific [place] 1.010, Urine Protein 1+ A, Urine Glucose (UA) Negative, Urine Ketones Negative, Urine Blood 3+ A, Urine Nitrate Negative, Urine Bilirubin Negative, Urine Urobilinogen 1.0, Ur Leukocyte Esterase Negative, Urine RBC None, Urine WBC 3-5, Ur Squamous Epith Cells None, Amorphous Sediment 1+, Urine Bacteria 1+ 06/08/24 16:20: Troponin I 0.03 06/08/24 18:30: Lactate 1.2, Troponin I 0.04 H 06/09/24 05:30: WBC 10.9 H, RBC 4.53 L, Hgb 14.7, Hct 44.8, MCV 99.0 H, MCH 32.3 H, MCHC 32.7, RDW 13.4, Plt Count 106 L, MPV 10.4, Neut % (Auto) 86.0 H, Lymph % (Auto) 6.2 L, [place] % (Auto) 7.6, Eos % (Auto) 0.0 L, Baso % (Auto) 0.1, Neut # (Auto) 9.4 H, Lymph # (Auto) 0.7, [place] # (Auto) 0.8, Eos # (Auto) 0.0, Baso # (Auto) 0.0, Total Counted 100, Neutrophils % (Manual) 81 H, Lymphocytes % (Manual) 17, Monocytes % (Manual) 2, Platelet Estimate Slight decrease, RBC Morphology Normal, Sodium 148 H, Potassium 3.9, Chloride 115 H, Carbon Dioxide 28, Anion Gap 8.9, BUN 27 H, Creatinine 0.80, Estimated Creat Clear 66, Estimated GFR 92, Est GFR ( Amer) 111, Glucose 139 H, Calcium 8.6, Magnesium 2.6 H, Total Bilirubin 1.0, AST 136 H, ALT 82 H, Alkaline Phosphatase 113, Total Creatine Kinase 2038 H* D, Total Protein 5.5 L, Albumin 3.0 L D, Globulin 2.5, Albumin/Globulin Ratio 1.2, TSH 1.35, Free T4 1.34 I & O for Last 24 hours: Intake & Output 06/06/24 06/07/24 06/08/24 06/09/24 23:59 23:59 23:59 23:59 Intake Total 730 / 730 535 / 535 Output Total 0 / 0 Balance 730 / 730 535 / 535 Weight 189 lb 9 oz 189 lb 8.996 oz Constitutional Constitutional: no acute distress and cooperative *Routine Respiratory Exam Respiratory: Present CTA bilaterally, able to speak in complete sentences and symmetric chest movement *Routine Cardiovascular Exam Cardiovascular: Present Normal S1, Normal S2, tachycardia and irregular rhythm Meds Home Medications and Allergies Home Medications ?Medication ?Instructions ?Recorded ?Confirmed ?Type nebivolol 5 mg tablet 5 mg PO DAILY 06/26/20 06/09/24 History ibuprofen 600 mg tablet 600 mg PO Q6HP PRN Mild Pain #30 09/08/20 06/08/24 Rx tabs citalopram 20 mg tablet 20 mg PO DAILY 06/02/24 06/09/24 History diclofenac sodium 75 mg 75 mg PO BID 06/02/24 06/09/24 History tablet,delayed release furosemide 20 mg tablet 20 mg PO AM 06/02/24 06/09/24 History loratadine 10 mg tablet 10 mg PO HS 06/02/24 06/09/24 History losartan 25 mg tablet 25 mg PO DAILY 06/02/24 06/09/24 History spironolactone 25 mg tablet 25 mg PO DAILY 06/02/24 06/09/24 History aspirin 81 mg tablet,delayed 81 mg PO DAILY 06/09/24 06/09/24 History release New Prescriptions to Start Prescriptions: Allergies Allergy/AdvReac Type Severity Reaction Status Date / Time hydrocodone (From [place]) Allergy Other Verified 06/09/24 00:41 Assessment and Plan *Assessment and plan (1) Acute respiratory failure with hypoxia: Status: Acute Category: Medical Code(s): J96.01 - Acute respiratory failure with hypoxia (2) Right upper lobe pulmonary infiltrate: Status: Acute Category: Medical Code(s): R91.8 - Other nonspecific abnormal finding of lung field (3) Rhabdomyolysis: Status: Acute Qualifiers: Encounter type: initial encounter Rhabdomyolysis type: traumatic Qualified Code(s): T79.6XXA - Traumatic ischemia of muscle, initial encounter Category: Medical Code(s): M62.82 - Rhabdomyolysis (4) Sacral decubitus ulcer: Status: Acute Qualifiers: Pressure injury stage: stage 3 Qualified Code(s): L89.153 - Pressure ulcer of sacral region, stage 3 Category: Medical Code(s): L89.159 - Pressure ulcer of sacral region, unspecified stage (5) Acute encephalopathy: Status: Acute Category: Medical Code(s): G93.40 - Encephalopathy, unspecified (6) Atrial flutter: Status: Acute Qualifiers: Atrial flutter type: unspecified Qualified Code(s): I48.92 - Unspecified atrial flutter Category: Medical Code(s): I48.92 - Unspecified atrial flutter Plan Acute respiratory failure with hypoxia Right upper lobe pulmonary infiltrate Rhabdomyolysis Sacral decubitus ulcer Acute encephalopathy Will defer to primary service and pulmonology for management New onset atrial flutter Acute myocardial injury secondary to acute illness and atrial flutter In the setting of acute illness with rhabdomyolysis, right upper lobe pulmonary infiltrate, hypoxia Preliminary echo report shows a normal ejection fraction with no significant valvular abnormalities noted. Official read is pending Troponin 0.03 trending up to 0.04-denies chest pain Stop nebivolol and start metoprolol succinate 50 mg p.o. daily Xarelto 20 mg p.o. daily CV summary 06/09/2024: Goal is to achieve rate control, acceptable rate less than 110. Recommend gentle fluids. Switch nebivolol to metoprolol succinate 50 mg daily. Start Xarelto 20 mg p.o. daily. Official echocardiogram read is pending.
[2024-06-09] MEDS: PRO-STAT AWC 30ML LIQUID PACKET 30 ML PO ×2 (11:24→20:36)
--- NOTE | 2024-06-09 14:17 | PC.NURSE ---
pt was alert and oriented this am during my initial assessment. Pt has became increasingly confused this afternoon. he knew where he was this morning and his situation. Now pt believes that he needs to go somewhere upfront . he has had an episode of incontinence and believes he is in [place]. Pt was reoriented that he was in [facility] and why he was admitted to the hospital.
--- NOTE | 2024-06-09 15:33 | HMH.SLDYSPHA ---
Speech & Language Evaluation Speech/Language Dysphagia Evaluation Start: 06/09/24 15:20 Freq: ONCE Status: Active Protocol: Document 06/09/24 15:20 CHARISMA (Rec: 06/09/24 15:32 CHARISMA [id number]) Co-signed By [facility] Dysphagia Assess/Goals/Plan Assessment Date of Evaluation: 06/09/24 Evaluation Type Initial Certification Assessment/Problems possible aspiration per MD order Does Patient Qualify for Service No Qualify/Failure Comment Based on clinical observations made throughout clinical bedside swallow evaluation and pt/nursing interview, further skilled speech therapy services are not required at this time d/t no overt s/sx of aspiration and WFL mastication and manipulation of bolus. Recommendations PHYSICIAN CERTIFICATION: The specified therapy services are required, authorized, and reviewed every 30 days. Diet Recommendations Normal Liquid Type Recommendations Normal/Thin SL Swallow Guidelines Standard Aspiration Prec.,Eat at slow rate Dysphagia Swallow Precautions/Strategies Sitting Upright (90 deg),Small Bites and Sips,Alternate Liquids/Solids Plan Pt/Guardian verbally ack understanding Yes of dx/prognosis/goals G -code Required No Education Instructions provided OFFSET SECOND PRESS OPERATOR discussed clinical observations made throughout bedside CSE, diet recommendations, and aspiration precautions with pt , nursing, and CM, all of which expressed understanding. Pt/Caregiver able to recall information Able to recall/restate Reinforcement needed No Speech & Language HPI History Present Illness Description of Patient Problem OFFSET SECOND PRESS OPERATOR pulled the following information from pt's H&P and chest CTA: This 83-year-old male who lives alone. Noting that his about 2 years ago after 60 years of marriage. Patient states he still able to mow his yard and apple picker leaves.. His son says he had not heard from him came up and apparently his father had fallen in the kitchen floor and may have been there for up to 2 days. Patient is not a good historian has mild short- term memory loss may be a early dementia. Son then informed me that his father would sit in a chair for long periods of time in the kitchen . He was unaware of the sacral ulcer that was found upon his admission. Unsure of length of time but apparently had started more than several weeks ago. Son noted that the patient had recently seen a chief technician, and had a corn removed from the right foot. This appears to be healing well. Upon arrival to the emergency room patient also was noted that he was in a flutter, also noting bruising to the back of right heel bruising to the middle of the back. Small scratch to the right foot. No other immediate signs of injury from the fall, x-rays were done showing no acute fractures but noting an infiltrate in the right upper lung. Patient is not in respiratory distress. After reviewing the patient with the emergency room provider I do agree that admission is necessary. I have talked to the son about planning and the son agrees that the father needs to stay in the hospital., Due to the right lung infiltrate, have consulted pulmonology., Noting old records from 2011 showing inguinal hernia repair but also a bowel resection, and in that note it mentions being on Eliquis for chronic PE. Chest CTA: IMPRESSION: 1. No acute findings associated with trauma identified. 2. Poorly defined right upper lobar ground-glass opacity favoring infectious/inflammatory etiology. Consider follow-up to document resolution on treatment. Pt/Caregiver Concerns None reported. Rehab Services Assessed Speech therapy Is this evaluation r/t stroke? No Language Primary Language Lao Therapy History Seen by other SL therapists No General Information General Current Food Consistancy Regular,Thin Liquids Dentition Upper & Lower Dentures Patient Orientation Person Ability to Follow Directions Good Communication Ability No Impairment Dysphagia:Food Presentation Evaluation Food Type Pureed,Mechanical Soft,Regular ,Liquid,Pudding Dysphagia Evaluation Summary A clinical bedside swallow evaluation was administered this afternoon with pt sitting upright in chair w/ upper and lower dentures. Pt was oriented to person only and was pleasantly confused throughout evaluation stating that he needed to call his son . OFFSET SECOND PRESS OPERATOR administered bolus consistencies including thin liquid (water) via open cup and straw, pudding, puree ( applesauce), mechanical soft ( Nutrigrain bar), and regular ( jc cracker). All bolus presentations were administered x2 to assess for consistency and fatigue. Pt did not demonstrate any overt s/sx of aspiration on any consistency trialed. Pt demonstrated adequate labial seal on all consistencies trialed. No oral residue was noted on any consistency trialed. Mastication and manipulation of bolus were WFL on all trials. Pt needed moderate verbal cues to take small sips. OFFSET SECOND PRESS OPERATOR recommends thin liquid/regular food diet with aspiration precautions/ compensatory strategies including small bites and sips , slow eating rate, and sitting upright during meals and 30-60 minutes after meals. Stroke Dysphagia Assessment PHYSICIAN CERTIFICATION: I certify the specified therapy services for Isaias Garza are required, authorized, and reviewed every 30 days.
[2024-06-09] MEDS: RIVAROXABAN 10MG TABLET 20 MG PO (16:39)
--- NOTE | 2024-06-09 16:59 | PC.NURSE ---
pT HAS BECAME INCREASINGLY MORE CONFUSED. HE HAS PULLED OUT 2 IV'S AND PULLED HIS PUREWICK OFF. HE KEEPS ASKING FOR HIS SON CAROLYN BUT HIS SON'S NAME IS SYLVIA. HE KEEPS SAYING HE IS LOOKING FOR HIS SHOES AND WANTS TO GO HOME. HE ALSO KEEPS SAYING THAT WE NEED TO TELL HIS SON HE IS HERE. I HAVE SPOKE WITH HIS SON SYLVIA TWICE TODAY. HE WAS PLACED BACK ON NASAL CANNULA AT 2L THIS EVENING FOR A ROOM AIR SAT OF 86. WENT UP TO 95% ON 2L. LIPS WERE NOTED TO BE SLIGHTLY CYANOTIC. OTHER VITALS ARE STABLE
[2024-06-09] MEDS: ACETAMINOPHEN 325MG TAB 650 MG PO (17:06)
[2024-06-09] MEDS: OLANZapine 10 MG VIAL 5 MG IM (17:37)
[2024-06-09] MEDS: OLANZapine 5 MG ODT TABLET SL (20:36)
--- NOTE | 2024-06-09 22:34 | PC.NURSE ---
Dressing to sacral wound (two flower foam pads) was changed at this time due to bowel movement. Scant bleeding noted prior to dressing change. Patient did not tolerate dressing change/brief change; patient was very aggressive and punching at staff during turning and cleaning. At this time, the patient is resting supine in bed.
[2024-06-09] MEDS: SODIUM CHLORIDE 0.45 % 1,000 ML 100 ML IV (23:15)
--- NOTE | 2024-06-09 23:15 | PC.NURSE ---
Dextrose 5% in 0.45% NaCl infusion was discontinued this shift. At this time, patient is switched to a NaCl 0.45% infusion, infusing at 100mL/hr.
--- NOTE | 2024-06-09 23:33 | EXP.PN ---
Subjective *Date: 06/09/24 *Time: 23:33 Interval history: Patient pleasant in the morning, then became more confused and agitated in the afternoon. Zyprexa given with improvement. Exam Data for Last 24 hours Vital signs and Labs for Last 24 Hours: Temp Pulse Resp BP Pulse Ox O2 Del Method O2 Flow Rate 99.0 F 93 H 16 97/53 L 94 L Room Air 2 06/09/24 20:00 06/09/24 20:00 06/09/24 20:00 06/09/24 20:00 06/09/24 20:00 06/09/24 20:00 06/09/24 18:22 Laboratory Results - last 24 hr 06/09/24 05:30: WBC 10.9 H, RBC 4.53 L, Hgb 14.7, Hct 44.8, MCV 99.0 H, MCH 32.3 H, MCHC 32.7, RDW 13.4, Plt Count 106 L, MPV 10.4, Neut % (Auto) 86.0 H, Lymph % (Auto) 6.2 L, [place] % (Auto) 7.6, Eos % (Auto) 0.0 L, Baso % (Auto) 0.1, Neut # (Auto) 9.4 H, Lymph # (Auto) 0.7, [place] # (Auto) 0.8, Eos # (Auto) 0.0, Baso # (Auto) 0.0, Total Counted 100, Neutrophils % (Manual) 81 H, Lymphocytes % (Manual) 17, Monocytes % (Manual) 2, Platelet Estimate Slight decrease, RBC Morphology Normal, Sodium 148 H, Potassium 3.9, Chloride 115 H, Carbon Dioxide 28, Anion Gap 8.9, BUN 27 H, Creatinine 0.80, Estimated Creat Clear 66, Estimated GFR 92, Est GFR ( Amer) 111, Glucose 139 H, Calcium 8.6, Magnesium 2.6 H, Total Bilirubin 1.0, AST 136 H, ALT 82 H, Alkaline Phosphatase 113, Total Creatine Kinase 2038 H* D, Total Protein 5.5 L, Albumin 3.0 L D, Globulin 2.5, Albumin/Globulin Ratio 1.2, TSH 1.35, Free T4 1.34 I & O for Last 24 hours: Intake & Output 06/06/24 06/07/24 06/08/24 06/09/24 23:59 23:59 23:59 23:59 Intake Total 730 / 730 835 / 835 Output Total 0 / 0 Balance 730 / 730 835 / 835 Weight 85.984 kg 85.984 kg Constitutional Constitutional: no acute distress Comments: Intermittently disoriented. *Routine HEENT Exam Head: Present normocephalic Eye: Present EOMI and PERRL ENT: Present mucous membranes moist *Routine Neck Exam Neck: Present supple; Absent lymphadenopathy *Routine Respiratory Exam Respiratory: Present CTA bilaterally *Routine Cardiovascular Exam Cardiovascular: Present RRR *Routine Abdominal Exam Abdominal: Present soft and normoactive bowel sounds; Absent tenderness *Routine Extremities Exam Extremities: Absent cyanosis, clubbing or edema *Routine Skin Exam Skin: Present warm; Absent rash *Routine Neurological Exam Neurological: Present alert Assessment and Plan *Assessment and plan (1) Acute respiratory failure with hypoxia: Status: Acute Category: Medical Code(s): J96.01 - Acute respiratory failure with hypoxia (2) Right upper lobe pulmonary infiltrate: Status: Acute Category: Medical Code(s): R91.8 - Other nonspecific abnormal finding of lung field (3) Rhabdomyolysis: Status: Acute Qualifiers: Encounter type: initial encounter Rhabdomyolysis type: traumatic Qualified Code(s): T79.6XXA - Traumatic ischemia of muscle, initial encounter Category: Medical Code(s): M62.82 - Rhabdomyolysis (4) Sacral decubitus ulcer: Status: Acute Qualifiers: Pressure injury stage: stage 3 Qualified Code(s): L89.153 - Pressure ulcer of sacral region, stage 3 Category: Medical Code(s): L89.159 - Pressure ulcer of sacral region, unspecified stage (5) Acute encephalopathy: Status: Acute Category: Medical Code(s): G93.40 - Encephalopathy, unspecified (6) Atrial flutter: Status: Acute Qualifiers: Atrial flutter type: unspecified Qualified Code(s): I48.92 - Unspecified atrial flutter Category: Medical Code(s): I48.92 - Unspecified atrial flutter Plan Isaias Garza is a 83 year old male with a medical history significant for dementia, hypertension, anxiety/depression who presented after being found down in his kitchen for 2 days. Admitted for rhabdomyolysis, suspected necrotizing pneumonia, sacral ulcer, acute metabolic encephalopathy, new afib, and unable to take of himself at home. Continues to require inpatient management. #Suspected RUL necrotizing pnuemonia - Has been coughing more recently including blood, sputum seems to dark and blood tinged. - CTA shows RUL opacity, no PE. - Zosyn, azithromycin day 1. Initially on ceftriaxone. - WBC 11.8-10.9 today. - Pulmonology consulted, appreciate recommendations. - Follow-up sputum, blood cultures. #Rhabdomyolysis #Hypernatremia - CK 4626 -> 2038 with IV and oral fluid resusciation. - Na 148 in the setting of free water depletion. - Renal function stable, Cr 0.80 BUN 27. - Continue 1/2 normal saline @ 100ml/h. Discontinued D5 1/2 fluids today. #Acute metabolic encephalopathy #Dementia - Sons states patient does have intermittent confusion at baseline. - Somewhat worse during admission in setting of pneumonia, became agitated with nursing staff. - Follow-up B12, folate, TSH. - IM Zyprexa 5mg as needed - Zyprexa 5mg qhs. #New Aflutter - Currently rate controlled. - Cardiology consulted, appreciate recommendations as below. - Started metoprolol succinate 50mg, Xarelto 20mg. - Follow up ECHO. #Stage 3 scaral pressure ulcer - Son states patient sits in his chair quite a bit at home. - CTA A/p does not show underlying infection. - General surgery initially consulted, did not recommend debridement at this time. - Wound care consulted. #Physical deconditiong - PT/OT consulted, recommended SNF. Case management assisting with placement. #Hypertension - Hold losartan in setting of soft BP 97/53. FULL CODE DVT ppx: Xarelto
[2024-06-10] VITALS (10 sets, daily range): BP systolic 103–158; BP diastolic 49–75; PULSE 62–104; RESP 16–20; TEMP 36.6–37.1; O2SAT 91–100; BMI 24.7
[2024-06-10] MEDS: LEVALBUTEROL 1.25MG/3ML NEB 1.25 MG IH ×5 (00:09→23:11)
--- NOTE | 2024-06-10 00:34 | PC.NURSE ---
[place] from [facility] was paged at this time to confirm compatibility with 0.45% NaCl fluid and Zosyn; they are compatible.
[2024-06-10] MEDS: PIPERCILLIN/TAZO 3.375 GM in 0.9 % SODIUM CHLORIDE 50 ML IV ×3 (00:36→16:18)
[2024-06-10 03:29] LABS: Folate > 20.00 ng/mL
--- NOTE | 2024-06-10 05:57 | PC.NURSE ---
Patient is alert to self and was able to tell me his birthday this shift. Patient's family visited him earlier this shift and left toiletries and clothes in his room. However, patient is unaware of his situation and where he is at. During turning and self care activities, patient tended to be quite combative, resistive, and aggressive with staff members. Patient would also occasionally say threatening statements. Patient would complain of generalized soreness and pain in his back during turns. Patient has been reoriented and reassured by staff during combative episodes. Patient's sacral dressing has been changed this shift (see prior note). Reddening was also noted on the patient's left hip. Patient has scattered abrasions on his extremities. Patient has been quite resistive with many aspects of his care this shift (Q2 turns, nasal cannula, monitoring analyst and pulse oximetry, brief/dressing changes, heel elevations, etc.). Patient has been observed by staff to pull pillows out from underneath him and pull off pulse ox and monitoring analyst leads. He would become agitated whenever staff would attempt to coax him to keep these in place. Patient's heart rhythm has been in afib this shift; the 04:00 cardiac reading was not able to be completed due to patient's refusal to wear a monitoring analyst. He has received his scheduled medications per SEP. He currently has 0.45% NaCl infusing at 100 mL/hr. Upon auscultation, patient's lung sounds were diminished, S1/S2 heart sounds with an irregular rhythm could be heard, and bowel sounds were active. Patient has had multiple incontinent bowel movements and a couple voids this shift. Patient did not keep his nasal cannula in place this shift; however, oxygen saturations have remained > 90%. Blood pressures and heart rates have been elevated. Patient has remained in bed throughout the shift. At this time, the patient does not have any further complaints. He is resting supine in bed. No acute changes noted thus far. Bed alarm on. Call light within reach.
[2024-06-10 06:44] LABS: Alanine Aminotransferase 97 U/L (12-78); Albumin Level 2.7 g/dl (3.5-5.0); Albumin/Globulin Ratio 1.1 (1.1-1.8); Alkaline Phosphatase 112 U/L (38-126); Anion Gap 7.1 mEq/L (5-15); Aspartate Amino Transferase 127 U/L (17-59); Bilirubin,Total 0.7 mg/dl (0.2-1.3); Blood Urea Nitrogen 29 mg/dl (9-20); Carbon Dioxide 28 mmol/L (22.0-30.0); Chloride 109 mmol/L (98-107); Creatinine Clearance Estimated 67 mL/min (50-200); Estimated Glomerular Filt Rate 80 ml/min (>60); GFR (African American) 97 ML/MIN (>60); Globulin 2.4 g/dL (1.3-3.2); Glucose 112 mg/dl (74-100); Magnesium 2.3 mg/dl (1.6-2.3); Potassium 3.1 mmoL/L (3.5-5.1); Sodium 141 mmol/L (136-145); Total Protein,Serum 5.1 g/dl (6.3-8.2)
[2024-06-10 06:45] LABS: Basophils % 0.2 % (0.1-2.0); Eosinophils # 0.1 K/mm3 (0.0-0.4); Eosinophils % 1.1 % (0.1-12.0); Hematocrit 40.5 % (42.0-52.0); Hemoglobin 13.3 g/dL (14.1-18.0); Lymphocytes # 0.7 K/mm3 (0.7-4.5); Lymphocytes % 7.3 % (10-50); Mean Corpuscular HGB Conc 32.9 g/dL (31.8-35.4); Mean Corpuscular Hemoglobin 32.5 pg (27.0-31.2); Mean Corpuscular Volume 98.8 fl (80-94); Mean Platelet Volume 9.5 fl (7.4-10.4); Monocytes # 0.5 K/mm3 (0.1-1.0); Neutrophils # 7.6 K/mm3 (1.8-7.8); Neutrophils % 85.4 % (37.0-80.0); Platelet Count 143 K/mm3 (142-424); Red Cell Distribution Width 13.5 % (11.5-17.5); White Blood Count 8.9 K/mm3 (4.8-10.8)
[2024-06-10 06:55] LABS: MANUAL DIFFERENTIAL MANUAL DIFFERENTIAL (MANUAL DIFF)
[2024-06-10 07:14] LABS: Thyroid Stimulating Hormone 1.29 uIU/mL (0.465-4.68)
[2024-06-10 07:49] LABS: Vitamin B12 262 pg/mL (239-931)
[2024-06-10 08:12] LABS: Erythrocyte Sedimentation Rate 17 mm/hr (0-20)
[2024-06-10] MEDS: POTASSIUM CHLORIDE 20MEQ TAB 40 MEQ PO ×3 (08:20→20:20)
[2024-06-10] MEDS: PT OWN MED *CITALOPRAM 20 MG TAB 1 EACH PO (08:21)
[2024-06-10] MEDS: PRO-STAT AWC 30ML LIQUID PACKET 30 ML PO ×2 (08:21→20:20)
[2024-06-10] MEDS: METOPROLOL SUCCINATE XL 50MG TABLET 50 MG PO (08:21)
--- NOTE | 2024-06-10 08:25 | EXP.SURG.PN ---
Subjective Narrative: Patient seen by wound care yesterday Exam Data for Last 24 hours Vital signs and Labs for Last 24 Hours: Temp Pulse Resp BP Pulse Ox O2 Del Method O2 Flow Rate 98.4 F 104 H 20 110/66 92 L Room Air 2 06/10/24 04:00 06/10/24 08:00 06/10/24 08:00 06/10/24 08:00 06/10/24 08:00 06/10/24 08:00 06/09/24 18:22 Laboratory Results - last 24 hr 06/09/24 05:30: Total Counted 100, Neutrophils % (Manual) 81 H, Lymphocytes % (Manual) 17, Monocytes % (Manual) 2, Platelet Estimate Slight decrease, RBC Morphology Normal, Total Creatine Kinase 2038 H* D, Folate > 20.00, TSH 1.35, Free T4 1.34 06/10/24 05:41: WBC 8.9, RBC 4.10 L, Hgb 13.3 L, Hct 40.5 L, MCV 98.8 H, MCH 32.5 H, MCHC 32.9, RDW 13.5, Plt Count 143 D, MPV 9.5, Neut % (Auto) 85.4 H, Lymph % (Auto) 7.3 L, [place] % (Auto) 6.0, Eos % (Auto) 1.1, Baso % (Auto) 0.2, Neut # (Auto) 7.6, Lymph # (Auto) 0.7, [place] # (Auto) 0.5, Eos # (Auto) 0.1, Baso # (Auto) 0.0, ESR 17, Sodium 141, Potassium 3.1 L D, Chloride 109 H, Carbon Dioxide 28, Anion Gap 7.1, BUN 29 H, Creatinine 0.90, Estimated Creat Clear 67, Estimated GFR 80, Est GFR ( Amer) 97, Glucose 112 H, Calcium 8.0 L, Magnesium 2.3 D, Total Bilirubin 0.7, AST 127 H, ALT 97 H, Alkaline Phosphatase 112, Total Protein 5.1 L, Albumin 2.7 L, Globulin 2.4, Albumin/Globulin Ratio 1.1, Vitamin B12 262, TSH 1.29 I & O for Last 24 hours: Intake & Output 11/16/24 11/17/24 11/18/24 11/19/24 11:59 11:59 11:59 11:59 Intake Total 1265 / 1265 1598 / 1598 Output Total 0 / 0 0 / 0 Balance 1265 / 1265 1598 / 1598 Weight 189 lb 8.996 oz 193 lb 1.6 oz Microbiology Reports for the Last 24 Hours: Microbiology 06/09/24 10:30 Sputum - Expectorated Sputum Gram Stain - Final *Routine Skin Exam Comments: There is some excoriated epidermis. There does appear to be some necrosis but I would favor this to be merely full-thickness skin. Progress Note: A&P Assessment and plan (1) Acute respiratory failure with hypoxia: Status: Acute (2) Right upper lobe pulmonary infiltrate: Status: Acute (3) Rhabdomyolysis: Status: Acute (4) Sacral decubitus ulcer: Status: Acute Assessment and plan: No indications for surgical debridement at this time. Continue care per wound care/physical therapy. Likely full-thickness skin necrosis without necrosis of underlying subcutaneous tissue or muscle fascia. (5) Acute encephalopathy: Status: Acute (6) Atrial flutter: Status: Acute
[2024-06-10 09:14] LABS: HCV Ab Non Reactive (Non Reactive)
[2024-06-10] MEDS: SODIUM CHLORIDE 0.45 % 1,000 ML 100 ML IV (09:18)
[2024-06-10] MEDS: AZITHROMYCIN 500 MG in 0.9 % SODIUM CHLORIDE 250 ML 250 MG IV (09:18)
[2024-06-10 09:31] LABS: Eosinophils % 1 % (0-3); Lymphocytes % 13 % (10-50); Monocytes % 5 % (2-9); Neutrophils % 81 % (42-76); Platelet Estimate Normal; RBC Morphology Normal; Total Cells Counted 100
--- NOTE | 2024-06-10 09:45 | ECG_ITS ---
APPROVED REPORT Exam: Resting ECG HR:86 bpm ECG Measurements Heart Rate 86 AXES QRSd 125 QRS -59 QT 375 T 80 QTc 419 Conclusion ATRIAL FLUTTER/TACHYCARDIA WITH ABERRANT CONDUCTION OR VENTRICULAR PREMATURE COMPLEXES LEFT ANTERIOR FASCICULAR BLOCK [QRS AXIS <= -45, QR IN I, RS IN II] MINIMAL ST DEPRESSION [0.025+ mV ST DEPRESSION] ABNORMAL ECG UNCONFIRMED REPORT Electronically signed by : Sebastian Polanco MD 06/11/2024 10:29:15
[2024-06-10 09:53] LABS: C-Reactive Protein 118.4 mg/L (0-4)
--- NOTE | 2024-06-10 10:48 | P.PN_ITS ---
Subjective *Date: 06/10/24 *Time: 12:21 Interval history: No acute respiratory events overnight. Pulmonology Exam Inpatient Vital signs and Labs for Last 24 Hours: Temp Pulse Resp BP Pulse Ox O2 Del Method O2 Flow Rate 98.4 F 104 H 20 110/66 92 L Room Air 2 06/10/24 04:00 06/10/24 08:00 06/10/24 08:00 06/10/24 08:00 06/10/24 08:00 06/10/24 09:00 06/09/24 18:22 Laboratory Results - last 24 hr 06/08/24 12:24: Hepatitis C Antibody Non reactive 06/09/24 05:30: Folate > 20.00 06/10/24 05:41: WBC 8.9, RBC 4.10 L, Hgb 13.3 L, Hct 40.5 L, MCV 98.8 H, MCH 32.5 H, MCHC 32.9, RDW 13.5, Plt Count 143 D, MPV 9.5, Neut % (Auto) 85.4 H, Lymph % (Auto) 7.3 L, [place] % (Auto) 6.0, Eos % (Auto) 1.1, Baso % (Auto) 0.2, Neut # (Auto) 7.6, Lymph # (Auto) 0.7, [place] # (Auto) 0.5, Eos # (Auto) 0.1, Baso # (Auto) 0.0, Total Counted 100, Neutrophils % (Manual) 81 H, Lymphocytes % (Manual) 13, Monocytes % (Manual) 5, Eosinophils % (Manual) 1, Platelet Estimate Normal, RBC Morphology Normal, ESR 17, Sodium 141, Potassium 3.1 L D, Chloride 109 H, Carbon Dioxide 28, Anion Gap 7.1, BUN 29 H, Creatinine 0.90, Estimated Creat Clear 67, Estimated GFR 80, Est GFR ( Amer) 97, Glucose 112 H, Calcium 8.0 L, Magnesium 2.3 D, Total Bilirubin 0.7, AST 127 H, ALT 97 H, Alkaline Phosphatase 112, C-Reactive Protein 118.4 H, Total Protein 5.1 L, Albumin 2.7 L, Globulin 2.4, Albumin/Globulin Ratio 1.1, Vitamin B12 262, TSH 1.29 Temp Pulse Resp BP Pulse Ox O2 Del Method O2 Flow Rate 98 F 70 18 109/58 L 95 Nasal Cannula 2 06/09/24 07:53 06/09/24 09:22 06/09/24 09:22 06/09/24 07:53 06/09/24 07:53 06/09/24 07:53 06/09/24 07:53 Laboratory Results - last 24 hr 06/08/24 12:24: WBC 11.8 H, RBC 4.51 L, Hgb 14.8, Hct 43.7, MCV 97.0 H, MCH 32.7 H, MCHC 33.7, RDW 13.4, Plt Count 133 L, MPV 10.7 H, Neut % (Auto) 88.0 H, Lymph % (Auto) 4.6 L, [place] % (Auto) 6.7, Eos % (Auto) 0.4, Baso % (Auto) 0.2, Neut # (Auto) 10.4 H, Lymph # (Auto) 0.6 L, [place] # (Auto) 0.8, Eos # (Auto) 0.0, Baso # (Auto) 0.0, Total Counted 100, Neutrophils % (Manual) 91 H, Lymphocytes % (Manual) 2 L, Monocytes % (Manual) 7, Platelet Estimate Slight decrease, RBC Morphology Normal, HIV 1&2 Antibody Rapid Nonreactive 06/08/24 12:47: VBG pH 7.40, VBG pCO2 41.6, VBG pO2 36.4, VBG HCO3 24.9, VBG Total CO2 26.2, VBG O2 Saturation 72.3 H, VBG Base Excess 0.0, VBG Lactic Acid 2.9 H 06/08/24 13:18: Sodium 145, Potassium 4.0, Chloride 110 H, Carbon Dioxide 30, Anion Gap 9.0, BUN 35 H, Creatinine 0.90, Estimated Creat Clear 64, Estimated GFR 80, Est GFR ( Amer) 97, Glucose 170 H, Calcium 9.0, Total Bilirubin 1.3, AST 179 H, ALT 71, Alkaline Phosphatase 90, Total Creatine Kinase 4626 H*, Troponin I 0.03, Total Protein 6.2 L, Albumin 3.5, Globulin 2.7, Albumin/Globulin Ratio 1.3 06/08/24 15:17: Urine Color Yellow, Urine Appearance Clear, Urine pH 5.0, Ur Specific [place] 1.010, Urine Protein 1+ A, Urine Glucose (UA) Negative, Urine Ketones Negative, Urine Blood 3+ A, Urine Nitrate Negative, Urine Bilirubin Negative, Urine Urobilinogen 1.0, Ur Leukocyte Esterase Negative, Urine RBC None, Urine WBC 3-5, Ur Squamous Epith Cells None, Amorphous Sediment 1+, Urine Bacteria 1+ 06/08/24 16:20: Troponin I 0.03 06/08/24 18:30: Lactate 1.2, Troponin I 0.04 H 06/09/24 05:30: WBC 10.9 H, RBC 4.53 L, Hgb 14.7, Hct 44.8, MCV 99.0 H, MCH 32.3 H, MCHC 32.7, RDW 13.4, Plt Count 106 L, MPV 10.4, Neut % (Auto) 86.0 H, Lymph % (Auto) 6.2 L, [place] % (Auto) 7.6, Eos % (Auto) 0.0 L, Baso % (Auto) 0.1, Neut # (Auto) 9.4 H, Lymph # (Auto) 0.7, [place] # (Auto) 0.8, Eos # (Auto) 0.0, Baso # (Auto) 0.0, Total Counted 100, Neutrophils % (Manual) 81 H, Lymphocytes % (Manual) 17, Monocytes % (Manual) 2, Platelet Estimate Slight decrease, RBC Morphology Normal, Sodium 148 H, Potassium 3.9, Chloride 115 H, Carbon Dioxide 28, Anion Gap 8.9, BUN 27 H, Creatinine 0.80, Estimated Creat Clear 66, Estimated GFR 92, Est GFR ( Amer) 111, Glucose 139 H, Calcium 8.6, Magnesium 2.6 H, Total Bilirubin 1.0, AST 136 H, ALT 82 H, Alkaline Phosphatase 113, Total Creatine Kinase 2038 H* D, Total Protein 5.5 L, Albumin 3.0 L D, Globulin 2.5, Albumin/Globulin Ratio 1.2, TSH 1.35, Free T4 1.34 I & O for Labs for Last 24 Hours: Intake & Output 06/07/24 06/08/24 06/09/24 06/10/24 23:59 23:59 23:59 23:59 Intake Total 730 / 730 885 / 2133 1248 / 1248 Output Total 0 / 0 0 / 0 Balance 730 / 730 885 / 2133 1248 / 1248 Weight 189 lb 9 oz 189 lb 8.996 oz 193 lb 1.6 oz Intake & Output 06/06/24 06/07/24 06/08/24 06/09/24 23:59 23:59 23:59 23:59 Intake Total 730 / 730 Output Total 0 / 0 Balance 730 / 730 0 / 0 Weight 189 lb 9 oz 189 lb 8.996 oz Microbiology Reports for the Last 24 Hours: Microbiology 06/09/24 10:30 Sputum - Expectorated Sputum Gram Stain - Final Constitutional: Present moderate distress Head: Present normocephalic and atraumatic ENT: Present normal exam, normal oropharynx and mucous membranes moist Neck: Present normal inspection and full ROM Respiratory: Present respiratory distress, rhonchi, diminished air movement and able to speak in complete sentences; Absent wheezes or crackles Cardiac: Present S1/S2, Tachycardia and radial pulses present GI: Present soft and distention; Absent tenderness or guarding Skin: Present intact; Absent cyanosis or jaundice Neuro: Present alert, awake and oriented x 3 Extremities: Present normal inspection; Absent clubbing or cyanosis Psychiatric: Present normal affect and cooperative Assessment and Plan *Assessment and plan (1) Hemoptysis: Status: Acute Category: Medical Code(s): R04.2 - Hemoptysis (2) Necrotizing pneumonia: Status: Acute Category: Medical Code(s): J85.0 - Gangrene and necrosis of lung (3) Acute respiratory failure with hypoxia: Status: Acute Category: Medical Code(s): J96.01 - Acute respiratory failure with hypoxia Plan Mr. Garza is a 83-year-old male presented to the ER after he was found down, chest x-ray upon admission found to be having pulmonary infiltrates and pulmonary was called for further evaluation and management. Patient admits worsening respiratory distress and coughing up blood. Sputum examined, dark black intermixed with phlegm. Will closely monitor. No laura hemoptysis appreciated. No significant smoking history, smoked when he was young for less than 10 pack years. Prior history of asthma using inhalers when he was young, not needing them in the last 10 years. Afebrile. Hemodynamically stable. Mild neutrophilic predominant leukocytosis. Blood gas venous upon admission did not show any evidence of hypoxic/hypercarbic respiratory failure. CTA upon admission evidence of pulmonary embolism. Dense consolidative/necrotizing airspace disease noted in the right upper lobe. No other consolidative/airspace changes noted. Chronic emphysematous changes noted Patient was initiated on ceftriaxone and azithromycin in the ER, antibiotics were escalated to Zosyn upon admission. Interval update: No acute respiratory vents overnight. Improving leukocytosis. Stable oxygen requirements. Continue to remain on room air. Sputum likely a suboptimal sample. Patient denies any new respiratory complaints. Appears more delirious than yesterday. Plan:- Antibiotics can be weaned to Augmentin to complete a total of 14-day course from pulmonary standpoint. Nebulization therapies QID scheduled Continue oxygen supplementation as needed to maintain O2 saturation goal of 90% and above.
--- NOTE | 2024-06-10 11:44 | EXP.CARD.PN ---
Subjective Subjective Date: 06/10/24 Time: 10:00 Principal diagnosis: fall, rhabdo, atrial fib/flutter Interval history: This is an 83-year-old gentleman who had a fall at home and is suspected to have laid on the ground for 2 days. When his son had not heard from the patient he went to check on him and found him laying in the kitchen. The patient was hemodynamically stable when he got here to the hospital, but he was confused and required oxygen via nasal cannula. The patient did have an EMILY with a CK of over 4000. After fluids his CK did go down to 2000. His renal function is normal this morning. This morning he denies any chest pain or pressure. He does say his legs ache a little bit especially after sitting in bed for a long time. He denies any shortness of breath or edema. He denies any fever, chills, nausea, vomiting, diarrhea, PND or orthopnea. The patient remains in atrial flutter this morning with a rate around 80s. Exam Data for Last 24 hours Vital signs and Labs for Last 24 Hours: Temp Pulse Resp BP Pulse Ox O2 Del Method O2 Flow Rate 98.4 F 77 20 110/66 92 L Room Air 2 06/10/24 04:00 06/10/24 11:14 06/10/24 08:00 06/10/24 08:00 06/10/24 08:00 06/10/24 11:00 06/09/24 18:22 Laboratory Results - last 24 hr 06/08/24 12:24: Hepatitis C Antibody Non reactive 06/09/24 05:30: Folate > 20.00 06/10/24 05:41: WBC 8.9, RBC 4.10 L, Hgb 13.3 L, Hct 40.5 L, MCV 98.8 H, MCH 32.5 H, MCHC 32.9, RDW 13.5, Plt Count 143 D, MPV 9.5, Neut % (Auto) 85.4 H, Lymph % (Auto) 7.3 L, [place] % (Auto) 6.0, Eos % (Auto) 1.1, Baso % (Auto) 0.2, Neut # (Auto) 7.6, Lymph # (Auto) 0.7, [place] # (Auto) 0.5, Eos # (Auto) 0.1, Baso # (Auto) 0.0, Total Counted 100, Neutrophils % (Manual) 81 H, Lymphocytes % (Manual) 13, Monocytes % (Manual) 5, Eosinophils % (Manual) 1, Platelet Estimate Normal, RBC Morphology Normal, ESR 17, Sodium 141, Potassium 3.1 L D, Chloride 109 H, Carbon Dioxide 28, Anion Gap 7.1, BUN 29 H, Creatinine 0.90, Estimated Creat Clear 67, Estimated GFR 80, Est GFR ( Amer) 97, Glucose 112 H, Calcium 8.0 L, Magnesium 2.3 D, Total Bilirubin 0.7, AST 127 H, ALT 97 H, Alkaline Phosphatase 112, C-Reactive Protein 118.4 H, Total Protein 5.1 L, Albumin 2.7 L, Globulin 2.4, Albumin/Globulin Ratio 1.1, Vitamin B12 262, TSH 1.29 I & O for Last 24 hours: Intake & Output 06/07/24 06/08/24 06/09/24 06/10/24 23:59 23:59 23:59 23:59 Intake Total 730 / 730 885 / 2133 1248 / 1248 Output Total 0 / 0 0 / 0 Balance 730 / 730 885 / 2133 1248 / 1248 Weight 189 lb 9 oz 189 lb 8.996 oz 193 lb 1.6 oz Microbiology Reports for the Last 24 Hours: Microbiology 06/09/24 10:30 Sputum - Expectorated Sputum Gram Stain - Final 06/09/24 10:30 Sputum - Expectorated Sputum Sputum Culture - Preliminary Constitutional Constitutional: no acute distress and average body habitus *Routine HEENT Exam Head: Present normocephalic and atraumatic ENT: Present mucous membranes moist *Routine Neck Exam Neck: Present supple, full ROM and normal carotid upstroke; Absent JVD, carotid bruit or lymphadenopathy *Routine Respiratory Exam Respiratory: Present CTA bilaterally, normal respiratory effort, able to speak in complete sentences and symmetric chest movement *Routine Cardiovascular Exam Cardiovascular: Present Normal S1, Normal S2 and irregularly irregular; Absent murmur or gallop *Routine Abdominal Exam Abdominal: Present soft and normoactive bowel sounds; Absent tenderness, distended or organomegaly *Routine Extremities Exam Extremities: Present full ROM, pulses intact and normal capillary refill; Absent cyanosis, clubbing or edema *Routine Skin Exam Skin: Present intact and warm; Absent erythema *Routine Neurological Exam Neurological: Present alert, oriented X3 and CN II-XII intact; Absent sensory deficit or motor deficit Routine Psychiatric Exam Psychiatric: Present normal affect Progress Note: A&P Assessment and plan (1) Atrial fibrillation: Status: Acute (2) Necrotizing pneumonia: Status: Acute (3) Acute respiratory failure with hypoxia: Status: Acute (4) Right upper lobe pulmonary infiltrate: Status: Acute (5) Elevated troponin: Status: Acute (6) History of recent fall: Status: Acute (7) Rhabdomyolysis: Status: Acute Assessment and Plan Assessment and Plan for All Diagnoses:: Plan: 1. The patient was admitted to the hospital after a fall at home. He did have rhabdomyolysis. His CK was initially elevated over 4000. It is down to 2000 at this time. We would recommend repeating his CK to make sure it continues to decrease. This can be repeated with morning labs. 2. The patient was found to be in atrial fibrillation/flutter on admission. His bisoprolol was switched to Toprol and he now is in atrial flutter with a rate in the 80s. He is having some PVCs this morning. Will continue Toprol for rate control at this time. 3. Continue Xarelto for long-term anticoagulation secondary to the atrial fibrillation. If he continues to have falls then we may have to consider risk versus benefit of keeping him on long-term anticoagulation. 4. The patient's initial troponin was negative but did elevate to 0.04. He denies any chest pain or pressure. The elevated troponin is most likely from demand ischemia from the fall and pneumonia. We would recommend outpatient ischemic evaluation once he is discharged from the hospital and recovered from his pneumonia. 5. The patient is currently being treated for pneumonia. Will defer this to the hospitalist and pulmonology. 6. His blood pressure is well-controlled. 7. His LDL goal is less than 100. Will get a lipid panel in the morning. 8. Echocardiogram shows a normal ejection fraction with a trivial effusion. 9. We do recommend a 30-day event monitor in place prior to discharge home. 10. No further recommendations at this time from a cardiac standpoint. We do recommend a 30-day event monitor in place at the time of discharge. Once he is stable for discharge she can be discharged on the following cardiac medications: Toprol XL 50 mg p.o. daily, Xarelto 20 mg p.o. with supper. Thank you for the opportunity to participate in the care of this patient. All recommendations and orders are per Dr. Chapa.
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
[2024-06-10] MEDS: RIVAROXABAN 10MG TABLET 20 MG PO (17:35)
--- NOTE | 2024-06-10 17:43 | PC.NURSE ---
PT IS RESTING IN BED. ALERT TO SELF ONLY. PT TOLERATED SITTING UP IN THE CHAIR THIS SHIFT AND PARTICIPATED WORKING WITH PHYSICAL THERAPY. PT FOLLOWS SIMPLE COMMANDS. PLEASANT THIS MORNING BUT HAS BEEN MORE AGITATED T/O THE AFTERNOON. NEW US GUIDED IV ACCESS NOTED TO [place]. PULLED OUT PREVIOUS IV. LUNG SOUNDS CLEAR. ABDOMEN SOFT/NON TENDER WITH ACTIVE BOWEL SOUNDS. SCATTERED ABRASIONS NOTED TO UPPER BACK. SACRAL ULCER NOTED. TURNED AND REPOSITIONED FREQUENTLY. EATING AND DRINKING FAIR. WILL CONTINUE TO MONITOR.
--- NOTE | 2024-06-10 18:23 | PC.WOUNDNOTE ---
DTI NOTED RIGHT HEEL ABRASION NOTED TO RIGHT FOOT DTI NOTED TO LEFT HEEL
[2024-06-10] MEDS: TRAZODONE 50MG TABLET 50 MG PO (20:20)
[2024-06-11] VITALS (7 sets, daily range): BP systolic 110–131; BP diastolic 59–95; PULSE 85–97; RESP 18–21; TEMP 36.6–37.3; O2SAT 94–100; BMI 24.5
[2024-06-11] MEDS: PIPERCILLIN/TAZO 3.375 GM in 0.9 % SODIUM CHLORIDE 50 ML IV ×3 (00:09→15:54)
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
[2024-06-11] MEDS: QUETIAPINE 25MG TABLET 25 MG PO (01:30)
[2024-06-11] MEDS: LEVALBUTEROL 1.25MG/3ML NEB 1.25 MG IH (05:59)
[2024-06-11 06:31] LABS: Alanine Aminotransferase 103 U/L (12-78); Albumin Level 2.7 g/dl (3.5-5.0); Albumin/Globulin Ratio 1.2 (1.1-1.8); Alkaline Phosphatase 112 U/L (38-126); Anion Gap 6.1 mEq/L (5-15); Aspartate Amino Transferase 117 U/L (17-59); Bilirubin,Total 0.7 mg/dl (0.2-1.3); Blood Urea Nitrogen 18 mg/dl (9-20); Calcium 8.1 mg/dl (8.4-10.2); Carbon Dioxide 28 mmol/L (22.0-30.0); Chloride 110 mmol/L (98-107); Creatine Kinase 768 U/L (55-170); Creatinine Clearance Estimated 66 mL/min (50-200); Estimated Glomerular Filt Rate 92 ml/min (>60); GFR (African American) 111 ML/MIN (>60); Globulin 2.3 g/dL (1.3-3.2); Glucose 118 mg/dl (74-100); Magnesium 2.4 mg/dl (1.6-2.3); Potassium 4.1 mmoL/L (3.5-5.1); Sodium 140 mmol/L (136-145)
[2024-06-11 06:47] LABS: Chol/HDL Ratio 4.3 (1-3.5); Cholesterol 126 mg/dl (140-200); HDL Cholesterol 29 mg/dl (40-60); Triglycerides 117 mg/dl (30-150); VLDL Cholesterol 23 mg/dL (0-40)
[2024-06-11 06:57] LABS: Basophils % 0.3 % (0.1-2.0); Direct LDL Cholesterol 83.12 mg/dL (100-129); Eosinophils # 0.1 K/mm3 (0.0-0.4); Eosinophils % 1.8 % (0.1-12.0); Hemoglobin 12.7 g/dL (14.1-18.0); Lymphocytes # 0.7 K/mm3 (0.7-4.5); Lymphocytes % 8.2 % (10-50); Mean Corpuscular HGB Conc 33.4 g/dL (31.8-35.4); Mean Corpuscular Hemoglobin 32.2 pg (27.0-31.2); Mean Corpuscular Volume 96.3 fl (80-94); Mean Platelet Volume 8.8 fl (7.4-10.4); Monocytes # 0.4 K/mm3 (0.1-1.0); Monocytes % 5.1 % (1.7-9.3); Neutrophils # 6.7 K/mm3 (1.8-7.8); Neutrophils % 84.6 % (37.0-80.0); Platelet Count 184 K/mm3 (142-424); Red Blood Count 3.95 M/mm3 (4.60-6.20); Red Cell Distribution Width 13.5 % (11.5-17.5)
--- NOTE | 2024-06-11 07:40 | P.PN_ITS ---
Subjective Patient reports: no new complaints Exam Data for Last 24 hours Vital signs and Labs for Last 24 Hours: Temp Pulse Resp BP Pulse Ox O2 Del Method O2 Flow Rate 98.1 F 85 18 131/95 H 100 Room Air 2 06/11/24 04:00 06/11/24 05:59 06/11/24 04:00 06/11/24 04:00 06/11/24 04:00 06/11/24 06:27 06/09/24 18:22 Laboratory Results - last 24 hr 06/08/24 12:24: Hepatitis C Antibody Non reactive 06/10/24 05:41: Total Counted 100, Neutrophils % (Manual) 81 H, Lymphocytes % (Manual) 13, Monocytes % (Manual) 5, Eosinophils % (Manual) 1, Platelet Estimate Normal, RBC Morphology Normal, ESR 17, C-Reactive Protein 118.4 H, Vitamin B12 262 06/11/24 05:38: WBC 8.0, RBC 3.95 L, Hgb 12.7 L, Hct 38.0 L, MCV 96.3 H, MCH 32.2 H, MCHC 33.4, RDW 13.5, Plt Count 184 D, MPV 8.8, Neut % (Auto) 84.6 H, Lymph % (Auto) 8.2 L, [place] % (Auto) 5.1, Eos % (Auto) 1.8, Baso % (Auto) 0.3, Neut # (Auto) 6.7, Lymph # (Auto) 0.7, [place] # (Auto) 0.4, Eos # (Auto) 0.1, Baso # (Auto) 0.0, Sodium 140, Potassium 4.1 D, Chloride 110 H, Carbon Dioxide 28, Anion Gap 6.1, BUN 18 D, Creatinine 0.80, Estimated Creat Clear 66, Estimated GFR 92, Est GFR ( Amer) 111, Glucose 118 H, Calcium 8.1 L, Magnesium 2.4 H, Total Bilirubin 0.7, AST 117 H, ALT 103 H, Alkaline Phosphatase 112, Total Creatine Kinase 768 H* D, Total Protein 5.0 L, Albumin 2.7 L, Globulin 2.3, Albumin/Globulin Ratio 1.2, Triglycerides 117, Cholesterol 126 L, LDL Cholest carrie Direct 83.12 L, VLDL Cholesterol 23, HDL Cholesterol 29 L, Cholesterol/HDL Ratio 4.3 H I & O for Last 24 hours: Intake & Output 06/08/24 06/09/24 06/10/24 06/11/24 11:59 11:59 11:59 11:59 Intake Total 1265 / 1265 1598 / 1598 1330 / 1330 Output Total 0 / 0 0 / 0 0 / 0 Balance 1265 / 1265 1598 / 1598 1330 / 1330 Weight 189 lb 8.996 oz 193 lb 1.6 oz 190 lb 12.8 oz Microbiology Reports for the Last 24 Hours: Microbiology 06/09/24 10:30 Sputum - Expectorated Sputum Gram Stain - Final 06/09/24 10:30 Sputum - Expectorated Sputum Sputum Culture - Preliminary Constitutional Constitutional: no acute distress *Routine Skin Exam Comments: Sacral decubitus ulceration with some development of central eschar. No spreading cellulitis. Progress Note: A&P Assessment and plan (1) Sacral decubitus ulcer: Status: Acute Assessment and plan: Pressure relief at all times May ultimately require debridement; however, no indication currently
[2024-06-11] MEDS: AZITHROMYCIN 500 MG in 0.9 % SODIUM CHLORIDE 250 ML 250 MG IV (07:43)
[2024-06-11] MEDS: PRO-STAT AWC 30ML LIQUID PACKET 30 ML PO (08:20)
[2024-06-11] MEDS: CITALOPRAM 20MG TABLET 20 MG PO (08:20)
[2024-06-11] MEDS: METOPROLOL SUCCINATE XL 50MG TABLET 50 MG PO (08:21)
--- NOTE | 2024-06-11 09:36 | XR_ITS ---
FINAL REPORT CLINICAL HISTORY: PNM FINDINGS: SINGLE VIEW CHEST The heart is in the upper limits of normal in size. The mediastinum is unremarkable. There is dense airspace infiltrate in the right upper lobe with volume loss. There are chronic changes at the left base. There is no pneumothorax. IMPRESSION: Airspace infiltrate in the right upper lobe with volume loss. Reviewed, Interpreted and Dictated by Gilson Barnes MD Transcribed by Stacia Munroe Authenticated and . [facility]
--- NOTE | 2024-06-11 09:36 | P.PN_ITS ---
Subjective *Date: 06/11/24 *Time: 11:19 Interval history: No acute respiratory events overnight. Patient denies any new respiratory complaints. Pulmonology Exam Inpatient Vital signs and Labs for Last 24 Hours: Temp Pulse Resp BP Pulse Ox O2 Del Method O2 Flow Rate 98.1 F 97 H 21 118/79 94 L Room Air 2 06/11/24 07:53 06/11/24 07:53 06/11/24 07:53 06/11/24 07:53 06/11/24 08:15 06/11/24 09:00 06/09/24 18:22 Laboratory Results - last 24 hr 06/10/24 05:41: C-Reactive Protein 118.4 H 06/11/24 05:38: WBC 8.0, RBC 3.95 L, Hgb 12.7 L, Hct 38.0 L, MCV 96.3 H, MCH 32.2 H, MCHC 33.4, RDW 13.5, Plt Count 184 D, MPV 8.8, Neut % (Auto) 84.6 H, Lymph % (Auto) 8.2 L, [place] % (Auto) 5.1, Eos % (Auto) 1.8, Baso % (Auto) 0.3, Neut # (Auto) 6.7, Lymph # (Auto) 0.7, [place] # (Auto) 0.4, Eos # (Auto) 0.1, Baso # (Auto) 0.0, Sodium 140, Potassium 4.1 D, Chloride 110 H, Carbon Dioxide 28, Anion Gap 6.1, BUN 18 D, Creatinine 0.80, Estimated Creat Clear 66, Estimated GFR 92, Est GFR ( Amer) 111, Glucose 118 H, Calcium 8.1 L, Magnesium 2.4 H, Total Bilirubin 0.7, AST 117 H, ALT 103 H, Alkaline Phosphatase 112, Total Creatine Kinase 768 H* D, Total Protein 5.0 L, Albumin 2.7 L, Globulin 2.3, Albumin/Globulin Ratio 1.2, Triglycerides 117, Cholesterol 126 L, LDL Cholesterol Direct 83.12 L, VLDL Cholesterol 23, HDL Cholesterol 29 L, Cholesterol/HDL Ratio 4.3 H Temp Pulse Resp BP Pulse Ox O2 Del Method O2 Flow Rate 98 F 70 18 109/58 L 95 Nasal Cannula 2 06/09/24 07:53 06/09/24 09:22 06/09/24 09:22 06/09/24 07:53 06/09/24 07:53 06/09/24 07:53 06/09/24 07:53 Laboratory Results - last 24 hr 06/08/24 12:24: WBC 11.8 H, RBC 4.51 L, Hgb 14.8, Hct 43.7, MCV 97.0 H, MCH 32.7 H, MCHC 33.7, RDW 13.4, Plt Count 133 L, MPV 10.7 H, Neut % (Auto) 88.0 H, Lymph % (Auto) 4.6 L, [place] % (Auto) 6.7, Eos % (Auto) 0.4, Baso % (Auto) 0.2, Neut # (Auto) 10.4 H, Lymph # (Auto) 0.6 L, [place] # (Auto) 0.8, Eos # (Auto) 0.0, Baso # (Auto) 0.0, Total Counted 100, Neutrophils % (Manual) 91 H, Lymphocytes % (Manual) 2 L, Monocytes % (Manual) 7, Platelet Estimate Slight decrease, RBC Morphology Normal, HIV 1&2 Antibody Rapid Nonreactive 06/08/24 12:47: VBG pH 7.40, VBG pCO2 41.6, VBG pO2 36.4, VBG HCO3 24.9, VBG Total CO2 26.2, VBG O2 Saturation 72.3 H, VBG Base Excess 0.0, VBG Lactic Acid 2.9 H 06/08/24 13:18: Sodium 145, Potassium 4.0, Chloride 110 H, Carbon Dioxide 30, Anion Gap 9.0, BUN 35 H, Creatinine 0.90, Estimated Creat Clear 64, Estimated GFR 80, Est GFR ( Amer) 97, Glucose 170 H, Calcium 9.0, Total Bilirubin 1.3, AST 179 H, ALT 71, Alkaline Phosphatase 90, Total Creatine Kinase 4626 H*, Troponin I 0.03, Total Protein 6.2 L, Albumin 3.5, Globulin 2.7, Albumin/Globulin Ratio 1.3 06/08/24 15:17: Urine Color Yellow, Urine Appearance Clear, Urine pH 5.0, Ur Specific [place] 1.010, Urine Protein 1+ A, Urine Glucose (UA) Negative, Urine Ketones Negative, Urine Blood 3+ A, Urine Nitrate Negative, Urine Bilirubin Negative, Urine Urobilinogen 1.0, Ur Leukocyte Esterase Negative, Urine RBC None, Urine WBC 3-5, Ur Squamous Epith Cells None, Amorphous Sediment 1+, Urine Bacteria 1+ 06/08/24 16:20: Troponin I 0.03 06/08/24 18:30: Lactate 1.2, Troponin I 0.04 H 06/09/24 05:30: WBC 10.9 H, RBC 4.53 L, Hgb 14.7, Hct 44.8, MCV 99.0 H, MCH 32.3 H, MCHC 32.7, RDW 13.4, Plt Count 106 L, MPV 10.4, Neut % (Auto) 86.0 H, Lymph % (Auto) 6.2 L, [place] % (Auto) 7.6, Eos % (Auto) 0.0 L, Baso % (Auto) 0.1, Neut # (Auto) 9.4 H, Lymph # (Auto) 0.7, [place] # (Auto) 0.8, Eos # (Auto) 0.0, Baso # (Auto) 0.0, Total Counted 100, Neutrophils % (Manual) 81 H, Lymphocytes % (Manual) 17, Monocytes % (Manual) 2, Platelet Estimate Slight decrease, RBC Morphology Normal, Sodium 148 H, Potassium 3.9, Chloride 115 H, Carbon Dioxide 28, Anion Gap 8.9, BUN 27 H, Creatinine 0.80, Estimated Creat Clear 66, Estimated GFR 92, Est GFR ( Amer) 111, Glucose 139 H, Calcium 8.6, [place] 2.6 H, Total Bilirubin 1.0, AST 136 H, ALT 82 H, Alkaline Phosphatase 113, Total Creatine Kinase 2038 H* D, Total Protein 5.5 L, Albumin 3.0 L D, Globulin 2.5, Albumin/Globulin Ratio 1.2, TSH 1.35, Free T4 1.34 I & O for Labs for Last 24 Hours: Intake & Output 06/08/24 06/09/24 06/10/24 06/11/24 23:59 23:59 23:59 23:59 Intake Total 730 / 730 885 / 2133 2047 / 2577 530 / 530 Output Total 0 / 0 0 / 0 0 / 0 Balance 730 / 730 885 / 2133 2048 / 2578 530 / 530 Weight 189 lb 9 oz 189 lb 8.996 oz 193 lb 1.6 oz 190 lb 12.8 oz Intake & Output 06/06/24 06/07/24 06/08/24 06/09/24 23:59 23:59 23:59 23:59 Intake Total 730 / 730 Output Total 0 / 0 Balance 730 / 730 0 / 0 Weight 189 lb 9 oz 189 lb 8.996 oz Microbiology Reports for the Last 24 Hours: Microbiology 06/09/24 10:30 Sputum - Expectorated Sputum Gram Stain - Final 06/09/24 10:30 Sputum - Expectorated Sputum Sputum Culture - Preliminary Constitutional: Present moderate distress Head: Present normocephalic and atraumatic ENT: Present normal exam, normal oropharynx and mucous membranes moist Neck: Present normal inspection and full ROM Respiratory: Present respiratory distress, rhonchi, diminished air movement and able to speak in complete sentences; Absent wheezes or crackles Cardiac: Present S1/S2, Tachycardia and radial pulses present GI: Present soft and distention; Absent tenderness or guarding Skin: Present intact; Absent cyanosis or jaundice Neuro: Present alert, awake and oriented x 3 Extremities: Present normal inspection; Absent clubbing or cyanosis Psychiatric: Present normal affect and cooperative Assessment and Plan *Assessment and plan (1) Hemoptysis: Status: Acute Category: Medical Code(s): R04.2 - Hemoptysis (2) Necrotizing pneumonia: Status: Acute Category: Medical Code(s): J85.0 - Gangrene and necrosis of lung (3) Acute respiratory failure with hypoxia: Status: Acute Category: Medical Code(s): J96.01 - Acute respiratory failure with hypoxia Plan Mr. Garza is a 83-year-old male presented to the ER after he was found down, chest x-ray upon admission found to be having pulmonary infiltrates and pulmonary was called for further evaluation and management. Patient admits worsening respiratory distress and coughing up blood. Sputum examined, dark black intermixed with phlegm. Will closely monitor. No laura hemoptysis appreciated. No significant smoking history, smoked when he was young for less than 10 pack years. Prior history of asthma using inhalers when he was young, not needing them in the last 10 years. Afebrile. Hemodynamically stable. Mild neutrophilic predominant leukocytosis. Blood gas venous upon admission did not show any evidence of hypoxic/hypercarbic respiratory failure. CTA upon admission evidence of pulmonary embolism. Dense consolidative/necrotizing airspace disease noted in the right upper lobe. No other consolidative/airspace changes noted. Chronic emphysematous changes noted Patient was initiated on ceftriaxone and azithromycin in the ER, antibiotics were escalated to Zosyn upon admission. Interval update: No acute respiratory events overnight. Stable oxygen requirements. Continue to remain on room air. Afebrile. Hemodynamically stable. No evidence of leukocytosis. Continue to receive Zosyn Plan:- Chest x-ray this morning continues with right upper lobe infiltrate not significantly change/improvement from his most recent CT chest. Concern for worsening peripheral cavitary lesion however no evidence of air-fluid levels noted concerning for abscess. Antibiotics can be weaned to Augmentin to complete a total of 14-day course from pulmonary standpoint. Nebulization therapies QID scheduled Continue oxygen supplementation as needed to maintain O2 saturation goal of 90% and above. # Thank you for involving pulmonary in this patient care. will follow patient in pulmonary clinic 2 weeks postdischarge with chest x-ray PA lateral prior to clinic visit
[2024-06-11] MEDS: FUROSEMIDE 40MG/4ML VIAL 40 MG IV (11:30)
--- NOTE | 2024-06-11 14:12 | EXP.DC.SUM ---
General Admission date:: 06/08/24 Discharge date: 06/11/24 HPI HPI HPI: Patient is a pleasant 83-year-old male from [facility]. Patient's family had not heard from him for a couple days and noted that he had fallen in the kitchen and been there for approximately 2 days. Patient does sit in chair for prolonged periods of time. He was brought to the emergency department where upon evaluation he was found to have soft tissue wound posterior to the coccyx with evidence of some eschar and necrosis. He was noted to have findings consistent with rhabdomyolysis. CT scan of the chest revealed possible right upper lobe pneumonia. He was admitted for inpatient management. Surgical consultation was obtained. Hospital Course Hospital Course Hospital Course: Isaias Garza is a 83 year old male with a medical history significant for dementia, hypertension, anxiety/depression who presented after being found down in his kitchen for 2 days. Admitted for rhabdomyolysis, suspected necrotizing pneumonia, sacral ulcer, acute metabolic encephalopathy, new afib, and unable to take of himself at home. Admitted for medical management. Patient showed gradual response and improvement during admission. Stable on room air during day of discharge. Stable to discharge to rehab. [facility]ac[facility] for [facility]. Problems addressed as follows: #Suspected RUL necrotizing pnuemonia - Has been coughing more recently including blood, sputum seems to dark and blood tinged. CTA shows RUL opacity, no PE. Pulmonology was consulted. Patient was started on azithromycin and Zosyn. Completed 4 days of IV antibiotics during admission. White count normalized, stable at 8 on day of discharge with hemoglobin of 12.7. Would benefit from repeat CBC, CMP, magnesium in 1 week to monitor for stability of labs. Will transition to Augmentin at discharge to complete 14 days total of antibiotics. Recommend follow-up with pulmonology in the coming weeks. #Rhabdomyolysis #Hypernatremia - CK 4626 on admission. Likely to falls and immobility. Initiated on fluid resuscitation with good response. Some gradual improvement with CK of 2000 on 06/09, improved to 700 on day of discharge. Making good urine with no signs of kidney dysfunction. Labs remained normal with potassium 4.1, magnesium 2.4, BUN 18 creatinine 0.8 on day of discharge. Patient overall doing well. Continue with general oral hydration. Sodium normal at 140 on day of discharge. #Acute metabolic encephalopathy #Dementia #Depression - Sons states patient does have intermittent confusion at baseline. Somewhat worse initially during admission in setting of pneumonia. Agitation has shown some improvement. Continue trazodone nightly 50 mg to help with sleep. Continuing citalopram 20 mg daily for depression/mood disorder. Labs reassuring including TSH normal at 1.29, B12 normal at 262, folate greater than 20. Concern for component of dementia with sundowning. May benefit from continued reevaluation for his dementia and medication adjustments after discharge. #New Aflutter - Currently rate controlled. Discussed case with cardiology who was consulted during admission. Recommend continuing metoprolol succinate 50mg daily, Xarelto 20mg. Echo obtained with normal LV function, mild RV dilation with minimal reduction in RV function. Cardiology additionally recommends 30-day event monitor at discharge. #Stage 3 scaral pressure ulcer - Son states patient sits in his chair quite a bit at home. CTA A/p does not show underlying infection. General surgery initially consulted, did not recommend debridement at this time; recommend deferring to wound care. #Physical deconditiong: PT/OT consulted, recommended SNF. Case management assisting with placement. #Hypertension: Hypertensive prior to admission. Held losartan during admission. Continue to hold at discharge, evaluate for need after discharge Total time spent on discharge 38 minutes in counseling, documentation, chart review, and direct care with patient. Exam Data for Last 24 hours Vital signs and Labs for Last 24 Hours: Temp Pulse Resp BP Pulse Ox O2 Del Method O2 Flow Rate 98.1 F 97 H 21 118/79 94 L Room Air 2 06/11/24 07:53 06/11/24 07:53 06/11/24 07:53 06/11/24 07:53 06/11/24 08:15 06/11/24 13:00 06/09/24 18:22 Laboratory Results - last 24 hr 06/11/24 05:38: WBC 8.0, RBC 3.95 L, Hgb 12.7 L, Hct 38.0 L, MCV 96.3 H, MCH 32.2 H, MCHC 33.4, RDW 13.5, Plt Count 184 D, MPV 8.8, Neut % (Auto) 84.6 H, Lymph % (Auto) 8.2 L, [place] % (Auto) 5.1, Eos % (Auto) 1.8, Baso % (Auto) 0.3, Neut # (Auto) 6.7, Lymph # (Auto) 0.7, [place] # (Auto) 0.4, Eos # (Auto) 0.1, Baso # (Auto) 0.0, Sodium 140, Potassium 4.1 D, Chloride 110 H, Carbon Dioxide 28, Anion Gap 6.1, BUN 18 D, Creatinine 0.80, Estimated Creat Clear 66, Estimated GFR 92, Est GFR ( Amer) 111, Glucose 118 H, Calcium 8.1 L, Magnesium 2.4 H, Total Bilirubin 0.7, AST 117 H, ALT 103 H, Alkaline Phosphatase 112, Total Creatine Kinase 768 H* D, Total Protein 5.0 L, Albumin 2.7 L, Globulin 2.3, Albumin/Globulin Ratio 1.2, Triglycerides 117, Cholesterol 126 L, LDL Cholesterol Direct 83.12 L, VLDL Cholesterol 23, HDL Cholesterol 29 L, Cholesterol/HDL Ratio 4.3 H I & O for Last 24 hours: Intake & Output 06/08/24 06/09/24 06/10/24 06/11/24 23:59 23:59 23:59 23:59 Intake Total 730 / 730 885 / 2133 2048 / 2578 1320 / 1320 Output Total 0 / 0 0 / 0 0 / 0 Balance 730 / 730 885 / 2133 2048 / 2578 1320 / 1320 Weight 85.984 kg 85.984 kg 87.589 kg 86.545 kg Microbiology Reports for the Last 24 Hours: Microbiology 06/09/24 10:30 Sputum - Expectorated Sputum Gram Stain - Final 06/09/24 10:30 Sputum - Expectorated Sputum Sputum Culture - Preliminary Constitutional Constitutional: no acute distress, average body habitus and cooperative Comments: Intermittently disoriented. *Routine HEENT Exam Head: Present normocephalic Eye: Present EOMI and PERRL ENT: Present mucous membranes moist *Routine Neck Exam Neck: Present supple; Absent lymphadenopathy *Routine Respiratory Exam Respiratory: Present CTA bilaterally; Absent respiratory distress, stridor or wheezes *Routine Cardiovascular Exam Cardiovascular: Present RRR *Routine Abdominal Exam Abdominal: Present soft and normoactive bowel sounds; Absent tenderness *Routine Rectal Exam Patient deferred: visual exam *Routine Exam Patient deferred: penile exam *Routine Extremities Exam Extremities: Absent cyanosis, clubbing or edema Comments: Bruising on bilateral heels Routine Back/Spine/Pelvis Exam Comments: Sacral decubitus wound stage III *Routine Skin Exam Skin: Present warm; Absent rash *Routine Neurological Exam Neurological: Present alert and moving all extremities; Absent altered mental status Comments: Oriented to self only. Knows name and month and day of date of . Does not know year. Thinks he is at his home. Pleasant during day. Has owning in the evenings. Results Data Completed and Pending Labs on day of discharge: Labs from last 24 hours 06/11/24 05:38 WBC 8.0 RBC 3.95 L Hgb 12.7 L Hct 38.0 L MCV 96.3 H MCH 32.2 H MCHC 33.4 RDW 13.5 Plt Count 184 D MPV 8.8 Neut % (Auto) 84.6 H Lymph % (Auto) 8.2 L [place] % (Auto) 5.1 Eos % (Auto) 1.8 Baso % (Auto) 0.3 Neut # (Auto) 6.7 Lymph # (Auto) 0.7 [place] # (Auto) 0.4 Eos # (Auto) 0.1 Baso # (Auto) 0.0 Sodium 140 Potassium 4.1 D Chloride 110 H Carbon Dioxide 28 Anion Gap 6.1 BUN 18 D Creatinine 0.80 Estimated Creat Clear 66 Estimated GFR 92 Est GFR ( Amer) 111 Glucose 118 H Calcium 8.1 L Magnesium 2.4 H Total Bilirubin 0.7 AST 117 H ALT 103 H Alkaline Phosphatase 112 Total Creatine Kinase 768 H* D Total Protein 5.0 L Albumin 2.7 L Globulin 2.3 Albumin/Globulin Ratio 1.2 Triglycerides 117 Cholesterol 126 L LDL Cholesterol Direct 83.12 L VLDL Cholesterol 23 HDL Cholesterol 29 L Cholesterol/HDL Ratio 4.3 H Preliminary micro results at discharge 06/09/24 10:30 Sputum Culture - Preliminary Sputum - Expectorated Sputum DS: Diagnosis Discharge Diagnosis (1) Necrotizing pneumonia: Status: Acute Code(s): J85.0 - Gangrene and necrosis of lung (2) Hemoptysis: Status: Acute Code(s): R04.2 - Hemoptysis (3) Acute respiratory failure with hypoxia: Status: Acute Code(s): J96.01 - Acute respiratory failure with hypoxia (4) Depression: Status: Acute Code(s): F32.A - Depression, unspecified (5) Atrial fibrillation: Status: Acute Code(s): I48.91 - Unspecified atrial fibrillation (6) Rhabdomyolysis: Status: Acute Code(s): M62.82 - Rhabdomyolysis Qualifiers: Encounter type: initial encounter Rhabdomyolysis type: traumatic Qualified Code(s): T79.6XXA - Traumatic ischemia of muscle, initial encounter (7) Self-care deficit: Status: Acute Code(s): Z78.9 - Other specified health status (8) Sacral decubitus ulcer: Status: Acute Code(s): L89.159 - Pressure ulcer of sacral region, unspecified stage Qualifiers: Pressure injury stage: stage 3 Qualified Code(s): L89.153 - Pressure ulcer of sacral region, stage 3 Meds Home Medications and Allergies Home Medications ?Medication ?Instructions ?Recorded ?Confirmed ?Type ibuprofen 600 mg tablet 600 mg PO Q6HP PRN Mild Pain #30 09/08/20 06/08/24 Rx tabs citalopram 20 mg tablet 20 mg PO DAILY 06/02/24 06/09/24 History diclofenac sodium 75 mg 75 mg PO BID 06/02/24 06/09/24 History tablet,delayed release furosemide 20 mg tablet 20 mg PO AM 06/02/24 06/09/24 History loratadine 10 mg tablet 10 mg PO HS 06/02/24 06/09/24 History losartan 25 mg tablet 25 mg PO DAILY 06/02/24 06/09/24 History aspirin 81 mg tablet,delayed 81 mg PO DAILY 06/09/24 06/09/24 History release acetaminophen 325 mg tablet 650 mg (2 x 325 mg) PO Q4HP PRN 06/11/24 Rx Fever Or Mild Pain (1-3) #0 tabs amino acids-protein hydrolysate 17 1 ea PO BID #2,880 mL 06/11/24 Rx gram-100 kcal/30 mL liquid packet (Pro-Stat AWC) amoxicillin 500 mg-potassium 1 tab PO TID 10 days #30 tabs 06/11/24 Rx clavulanate 125 mg tablet (Augmentin) levalbuterol HCl 1.25 mg/3 mL 1.25 mg (3 mL) inhalation Q6HP PRN 06/11/24 Rx solution for nebulization dyspnea 30 days #360 mL metoprolol succinate 50 mg 50 mg PO DAILY 30 days #30 tabs 06/11/24 Rx tablet,extended release 24 hr (Toprol XL) rivaroxaban 10 mg tablet (Xarelto) 20 mg (2 x 10 mg) PO QPMWITHMEAL 06/11/24 Rx 30 days #60 tabs trazodone 50 mg tablet 50 mg PO HS 30 days #30 tabs 06/11/24 Rx New Prescriptions to Start Prescriptions: amino acids-protein hydrolys [Pro-Stat AWC] Shawn Cardoso amoxicillin-pot clavulanate [Augmentin] Shawn Cardoso levalbuterol HCl Shawn Cardoso metoprolol succinate [Toprol XL] Shawn Cardoso rivaroxaban [Xarelto] Walker,Shawn trazodone Shawn Cardoso Allergies Allergy/AdvReac Type Severity Reaction Status Date / Time hydrocodone (From [place]) Allergy Other Verified 06/09/24 00:41 Discharge Plan Disposition Patient Disposition: [facility] Discharge Order Discharge Orders: Discharge Order (Routine); Ordered 06/11/24 Ordered By: Shawn Cardoso Follow up Plan Follow up with: Champ Jarrett MD [Staff Physician] - 1 week Elizabeth Randall MD [Physician] - 2 weeks Abdelrahman Chapa MD [Staff Physician] - Enter time for follow up Prescriptions/Medication Reconciliation: New acetaminophen 325 mg Tablet 650 mg PO Q4HP PRN (Reason: Fever Or Mild Pain (1-3)) Qty: 0 0RF Pro-Stat AWC 17-100 gram-kcal/30 mL Liquid In Packet 1 ea PO BID Qty: 2880 0RF levalbuterol HCl 1.25 mg/3 mL Solution For Nebulization 1.25 mg inhalation Q6HP PRN (Reason: dyspnea) 30 Days Qty: 360 0RF trazodone 50 mg Tablet 50 mg PO HS 30 Days Qty: 30 0RF metoprolol succinate [Toprol XL] 50 mg Tablet Extended Release 24 Hr 50 mg PO DAILY 30 Days Qty: 30 0RF Xarelto 10 mg Tablet 20 mg PO QPMWITHMEAL 30 Days Qty: 60 0RF amoxicillin-pot clavulanate [Augmentin] 500-125 mg tablet 1 tab PO TID 10 Days Qty: 30 0RF Rx Instructions: start evening of 06/11/24 Continued furosemide 20 mg tablet 20 mg PO AM Patient Comments: TAKE 1 TABLET BY MOUTH IN THE MORNING diclofenac sodium 75 mg tablet,delayed release (DR/EC) 75 mg PO BID Patient Comments: TAKE 1 TABLET BY MOUTH TWICE DAILY loratadine 10 mg tablet 10 mg PO HS Patient Comments: TAKE 1 TABLET BY MOUTH ONCE DAILY AT BEDTIME citalopram 20 mg tablet 20 mg PO DAILY Patient Comments: TAKE 1 TABLET BY MOUTH ONCE DAILY aspirin 81 mg Tablet,Delayed Release (Dr/Ec) 81 mg PO DAILY ibuprofen 600 MG tablet 600 mg PO Q6HP PRN (Reason: Mild Pain) Qty: 30 0RF Held losartan 25 mg tablet 25 mg PO DAILY Hold Instructions: pending re-evaluation of HTN Patient Comments: TAKE 1 TABLET BY MOUTH DAILY Discontinued spironolactone 25 mg tablet 25 mg PO DAILY nebivolol 5 MG tablet 5 mg PO DAILY Other Ambulatory Orders: XR chest 2V (Routine) Timeframe: 2 Weeks Facility: [facility] - Location: Radiology Ordered By: Elizabeth Randall Problem Reconciliation Problems Reviewed?: Yes Patient Discharge Instructions ACTIVITY: Continue current activity DIET: continue same diet Patient Instructions: DI for Pneumonia -- Adult, DI for Pressure Injuries, DI for Rhabdomyolysis Print Language: Slovenian Providers Primary Care Provider: Jose Huang Admit Provider: Semaj Harry Attending Provider: Semaj Harry
[2024-06-11] MEDS: RIVAROXABAN 10MG TABLET 20 MG PO (17:39)
== END 2024-06-11 18:24 | DRG 177 ==
LOC: ER 17:35 → 2ND 17:49
PROVIDERS: Emergency Medicine; Nurse Practitioner Family; Admitting Provider Student in an Organized Health Care Education/Training Program; Emergency Provider Emergency Medicine; PCP Family Medicine; Visit Provider Student in an Organized Health Care Education/Training Program
DX: J85.0 Gangrene and necrosis of lung (principal); G93.41 Metabolic encephalopathy; L89.153 Pressure ulcer of sacral region, stage 3; I48.92 Unspecified atrial flutter; E87.0 Hyperosmolality and hypernatremia; R04.2 Hemoptysis; T79.6XXA Traumatic ischemia of muscle, initial encounter; R09.02 Hypoxemia; S20.229A Contusion of unspecified back wall of thorax, initial encounter; M79.671 Pain in right foot; M79.672 Pain in left foot; F03.90 Unspecified dementia, unspecified severity, without behavioral disturbance, psychotic disturbance, mood disturbance, and anxiety; F32.A Depression, unspecified; I10 Essential (primary) hypertension
CPT/HCPCS: 36415; 70450; 70496; 70498; 71045; 71275; 72125; 72192; 73030; 73060; 73502; 73552; 74174; 80053; 80061; 81001; 82550; 82607; 82746; 82803; 83605; 83735; 84439; 84443; 84484; 85007; 85025; 85651; 86140; 86803; 87070; 87077; 87186; 87205; 87389; 90715; 92610; 93005; 93270; 93272; 93306; 94640; 97140; 97162; 97166; 97530; 97535; 99291; J0456; J0696; J1650; J1940; J2543; J7030; J7050; J7614; Q9967

== ENCOUNTER 2024-06-17 06:53 | Emergency (ER) | payer MEDICARE, OTHER, SELFPAY ==
[2024-06-17 07:09] VITALS: BP 160/88; PULSE 70; O2SAT 96
--- OUTSIDE RECORDS SUMMARY | 2024-06-17 07:10 | XMS_ITS | Encounter Summary ---
Author Organization Healthcare Address [address] [place] [address] Care Team Providers Care Snow Fence Erector Name Role Phone Unavailable Primary Care Provider Unavailabl e Encounter Details Date Type Department Care Team (Late st Contact Info) Description 01/09/2017 [facility] Vitals Encounter [facility] [address] [place] [address] Provider, MD Renetta [address] [place] [id number] Social History Tobacco Use Types Packs/Day [...]
--- OUTSIDE RECORDS SUMMARY | 2024-06-17 07:10 | XMS_ITS ---
Author Organization Merged with [facility] [address] Address [address] [place] [address] [place] [address] Care Team Providers Care Turkey Cleaner Name Role Phone Sebastian Polanco Primary Care Provider REASON FOR VISIT NH f/u visit Encounters Encounter Location Date Provider Diagnosis [address] [place] [address] 06/16/2024 Sebastian Polanco Plan Of Treatment No Information Progress Notes * Isaias GARZA CDOB:[birth year] (83 yo M)Acc No.[id number]:06/16/2024 Patient:?Isaias GARZA Provider:?Sebastian Polanco MD :[id number]???Age:83 Y???Sex:Male Bran e:06/16/2024 Address:[facility] [id number] Subjective: * Chief Complaints: * ???1. [place] MD f/u visit. * Medical History:? Objective: * Vitals:? Assessment: Plan: * Treatment: * * Electronic signature of Geovany Polanco MD FAAP on 06/17/2024 at 07:09 AM EST Sign off status: Pending * Provider:?Sebastian Polanco MD Date :?06/16/2024 Generated for Printi ng/Faxing/eTransmitting on:?06/17/2024 07:09 AM EST
--- OUTSIDE RECORDS SUMMARY | 2024-06-17 07:10 | XMS_ITS | Encounter Summary ---
Author Organization Healthcare Address [address] [place] [address] Care Team Providers Care Design Printing Machine Setter Name Role Phone Unavailable Primary Care Provider Unavailabl e Encounter Details Date Type Department Care Team (Late st Contact Info) Description 04/26/2016 [facility] Vitals Encounter [facility] [address] [place] [address] Provider, MD Renetta [address] [place] [id number] Social History Tobacco Use Types Packs/Day [...]
--- OUTSIDE RECORDS SUMMARY | 2024-06-17 07:10 | XMS_ITS ---
Author Organization [facility] Address [address] [place] [address] Care Team Providers Care Quality Assurance Auditor Name Role Phone Sebastian Polanco Primary Care Provider [phone] Patty Lopez Unavailable [phone] Allergies Allergen (clinical drug ingredient) Drug/Non Drug Allergy documented on EMR Reaction Allergy Type Onset Date Status [place] (uncoded) SOA Allergy Acti ve REASON FOR VISIT [place] History and Physical Medications Medication SIG (Take, Route, Frequency, Duration) Notes Start Date End Date Status diclofenac sodium 75 mg 1 tab(s) orally 2 times a day Active levalbuterol 1.25 mg/3 mL 3 mL by nebuli zer every 6 hours as needed Active Augmentin 500 mg-125 mg 1 tab(s) orally every 8 hours Active Metoprolol Succinate ER 50 mg 1 tab(s) orally once a day Active traZODone 50 mg as directed orally Active loratadine 10 mg 1 tab(s) orally once a day Active furosemide 20 mg 1 tab(s) orally once a day Active citalopram 20 mg 1 tab(s) orally once a day Active aspirin 81 mg 1 tab(s) orally once a day Active Xarelto 20 mg 1 tab(s) orally once a day Active multivitamin Lipotropic with Multivitamins 1 tab(s) orally once a day Active Problems Problem Type SNOMED Code ICD Code Onset Dates Problem Status W/U Status Risk Notes Problem 57580984 Senile debility (R54) Active confirmed Problem 61846345 Unspecified atrial fibrillation (I48.91) Active confirmed Problem 5572751 Unspecified atrial flutter (I48.92) Active confirmed Vital Signs Temperature 98.4 degrees Fahrenheit 06/13/20 24 Heart Rate 80 /min 06/13/2024 Blood pressure systolic 123 mm Hg 06/13/20 24 Blood pressure diastolic 72 mm Hg 024 Height 74.5 in 06/13/2024 Weight 186 lbs 06/13/2024 BMI 23.56 kg/m2 06/13/2024 Encounters Encounter Location Date Provider Diagnosis [address] [place] [address] 06/13/2024 Patty Lopez Traumatic rhabdomyol ysis, subsequent encounter T79.6XXD ; Community acquired pneumonia, unspecified laterality J18.9 ; Senile debility R54 ; Chronic depression F32.A ; Arthralgia of multiple joints M25.50 ; Essential hypertension I10 ; Unspecified atrial fibrillation I48.91 ; Unspecified atrial flutter I48.92 and Wound of sacral region, subsequent encounter S31.000D Assessments Encounter Date Diagnosis (ICD Code) Assessment Notes Treatment Notes Treatment Clinical Notes Section Notes 06/13/2024 Traumatic rhabdomyolysis, subsequent encounter (ICD-10 - T79.6XXD) Rec PT/OT/ST evaluation and treat if indicated Goal to return home Monitor cognition FU labs next week Rec add PPI since he is on aspirin, xarelto, diclofenac. DC PRN ibuprofen. ARMANDO for wound management 06/13/2024 Community acquired pneumonia, unspecified laterality (ICD-10 - J18.9) 06/13/2024 Senile debility (ICD-10 - R54) 06/13/2024 Chronic depression (ICD-10 - F32.A) 06/13/2024 Arthralgia of multiple joints (ICD-10 - M25.50) 06/13/2024 Essential hypertension (ICD-10 - I10) losartan held during hospital stay, monitor 06/13/2024 Unspecified atrial fibrillation (ICD-10 - I48.91) 06/13/2024 Unspecified atrial flutter (ICD-10 - I48.92) 06/13/2024 Wound of sacral region, subsequent encounter (ICD-10 - S31.000D) Plan Of Treatment Next Appt Details Follow Up: 4 Weeks, Reason: Progress Notes * Isaias GARZA CDOB:[birth year] (83 yo M)Acc No.[id number]:06/13/2024 Patient:?Isaias GARZA Provider:?CHARLES Jaquez :1940???Age:83 Y???Sex:Male Bran e:06/13/2024 Address:[address] [place], [place] [id number] Pcp:Sebastian Polanco Subjective: * Chief Complaints: * ???1. [facility] History and Physical. * HPI: ???gen:?Seen today at [facility] to follow-up since admission to facility. Admitted from [facility] after a stay there June 08 through after being found down at his home. Evidently he had fallen and not been heard from for about 2 days. He was noted to have a soft tissue wound in his coccyx/sacral region, elevated CPK levels and was admitted for hydration and management. Also noted to have a right upper lobe necrotizing pneumonia, currently being treated with Augmentin and he is to have follow-up with pulmonary in the outpatient setting. Documentation reports a history of possible dementia with some intermittent confusion, acute encephalopathy overlying chronic depression. B12, folate and TSH normal during hospital admission. He was also noted to have new onset atrial flutter during admission. Metoprolol was continued as was Xarelto. Echo without any significant abnormalities. Event monitor was recommended and outpatient follow-up with cardiology. At time of exam today he is sleeping, snoring and difficult to arouse but staff report no concerns since admission. Wound care service will be seeing him today and he is on protein supplement to assist with healing. * ROS:?RESPIRATORY:?Shortness of breath?yes.?Cough?yes.?CARDIOLOGY:?no?Chest pain.?Leg edema?yes.?CONSTITUTIONAL:?no?Loss of appetite.?no?Fever.?Weakness?yes.?DERMATOLOGY:?Positive for?sacral wound r/t fall, ARMANDO following.?GASTROENTEROLOGY:?no?Vomiting.?no?Diarrhea.?MUSCULOSKELETAL:?back pain?yes.?Joint stiffness?yes.?NEUROLOGY:?no?Seizures.?PSYCHOLOGY:?Depression?yes,?on citalopram.?UROLOGY:?no?Blood in urine.? * Medical History:?Hypertensio n, DVT/pulmonary embolism, Hernia repair, irregular HR, Arthritis in his knee- receives injections, HTN [Hypertension], Pulmonary embolism and infarction, other, DVT or embolism of distal lower extremity, BPH without obstruction/lower urinary tract symptoms, Colonoscopy 12/07 with multiple tubular adenoma, Fall with rhabdomyolysis 2023. * Surgical History:?rotator cu ff tear repair , Colon Resection 2011 , hernia repair 07/2014, lt knee replacement 05/2016, back 08/2017, back 11/2017. * Hospitalization/Major Diagno stic Procedure:?chest pain 2007, colon resection, GI bleed 2011 , Elevated bp/mini stroke 06/2020, [facility] - fall, rhabdo and pneumonia 05/2024. * Family History:?Father: dece ased, asthma.?Mother: , heart disease, hypertension.?Paternal Grand Father: .?Paternal Grand Mother: .?Maternal Grand Father: . Maternal Grand Mother: .?Siblings: , 2 brother- [place].?Children: alive.?2 brother(s) . 2 son(s) - healthy. .?Non-Contributory.? * Social History:?Smoking?Are you a:: nonsmoker.?Recreational drug use: no. Exercise: yes. Home smoke detector use: no. Caffeine: yes, frequency:tea and coffee daily. Living Will: No. Alcohol: no. Sexually active: yes. Travel outside [place]: no. Occupation: [employer]. * Medications:?Taking multivit ochoa Lipotropic with Multivitamins tablet 1 tab(s) orally once a day , Taking aspirin 81 mg delayed release tablet 1 tab(s) orally once a day , Taking Xarelto 20 mg tablet 1 tab(s) orally once a day , Taking furosemide 20 mg tablet 1 tab(s) orally once a day , Taking citalopram 20 mg tablet 1 tab(s) orally once a day , Taking loratadine 10 mg tablet 1 tab(s) orally once a day , Taking Augmentin 500 mg-125 mg tablet 1 tab(s) orally every 8 hours , Taking diclofenac sodium 75 mg delayed release tablet 1 tab(s) orally 2 times a day , Taking levalbuterol 1.25 mg/3 mL solution 3 mL by nebulizer every 6 hours as needed , Taking traZODone 50 mg tablet as directed orally , Taking Metoprolol Succinate ER 50 mg tablet, extended release 1 tab(s) orally once a day , Discontinued acetaminophen 500 mg tablet 2 tab(s) orally every 6 hours , Notes to Pharmacist: prn, Discontinued multivitamin Multiple Vitamins capsule 1 cap(s) orally once a day , Discontinued Aspirin EC 81 mg delayed release tablet 1 tab(s) orally once a day , Discontinued Aerochamber Plus 1 1 use with inhalor as directed as directed , Discontinued Symbicort 80-4.5 aerosol with adapter 2 puffs PO BID , Discontinued Bystolic 5 mg tablet 1 tab(s) orally once a day , Discontinued PARoxetine Hydrochloride 20 mg tablet 1 tab(s) orally once a day , Discontinued doxazosin 2MG tablet 1 tab(s) orally twice a day , Discontinued furosemide 20 mg tablet 1 tab(s) orally once a day , Discontinued triamcinolone topical 0.5% ointment 1 heaven applied topically 2 times a day , Medication List reviewed and reconciled with the patient * Allergies:?[place]: SOA. Objective: * Vitals:?Nurse: LIDIA, Pain: un able, Temp: 98.4, RR: 18, HR: 80, BP: 123/72, Ht: 74.5, Wt: 186, BMI:23.56. * Examination: ???General Examination: ?General?sleeping comfortably at time of exam.?Oral cavity:?Moist membranes.?Heart:?Regular Rate and Rhythm, no murmur, rubs or gallops.?Lungs:?clear to auscultation,.?Abdomen:?soft, ND, BS present.?Skin:?see wound tracking in facility.?Extremities:?warm, well perfused.?neck?supple,, no thyromegaly,, no lymphadenopathy,.? Assessment: * Assessment: 1.?Traumatic rhabdomyolysis, subsequent encounter - T79.6XXD (Primary)???2.?Community acquired pneumonia, unspecified laterality - J18.9???3.?Senile debility - R54???4.?Chronic depression - F32.A???5.?Arthralgia of multiple joints - M25.50???6.?Essential hypertension - I10???7.?Unspecified atrial fibrillation - I48.91???8.?Unspecified atrial flutter - I48.92???9.?Wound of sacral region, subsequent encounter - S31.000D??? Plan: * Treatment: 2.?Essential hypertension? Clinical Notes: losartan held during hospital stay, monitor?? * Follow Up:?4 Weeks * * Sign off status: Completed true * Provider:?CHARLES Jaquez Date:? 06/13/2024 Generated for Monica decker/Juan/Areli on:?06/17/2024 07:09 AM EST History and Physical Notes * Examination Category Sub-Category Detail Notes Category Not es General Examination Heart: Regular Rate and Rhythm, no murmur, rubs or gallops Lungs: clear to auscultatio n, Abdomen: soft, ND, BS present Extremities: warm, well perfused Skin: see wound tracking i n facility Oral cavity: Moist membranes neck supple,, no thyromeg rod,, no lymphadenopathy, General sleeping comfortably at time of exam
--- OUTSIDE RECORDS SUMMARY | 2024-06-17 07:10 | XMS_ITS | Encounter Summary ---
Author Organization [facility] Address [address] [place] [address] Care Team Providers Care Operational Intelligence Analyst Name Role Phone Unavailable Primary Care Provider Unavailabl e Encounter Details Date Type Department Care Team (Late st Contact Info) Description 11/23/2016 [facility] Vitals Encounter [facility] [address] [place] [address] Provider, MD Renetta [address] [place] [address] Social History Tobacco Use Types Packs/Day [...]
--- OUTSIDE RECORDS SUMMARY | 2024-06-17 07:10 | XMS_ITS | Encounter Summary ---
Author Organization [facility] Address [address] [place] [address] Care Team Providers Care Distribution Center Associate Name Role Phone Unavailable Primary Care Provider Unavailabl e Encounter Details Date Type Department Care Team (Late st Contact Info) Description 03/08/2016 [facility] Vit[facility] [address] [place] [address] Provider, MD Renetta [address] [place] [address] Social History Tobacco Use Types Packs/Day [...]
--- OUTSIDE RECORDS SUMMARY | 2024-06-17 07:10 | XMS_ITS | Encounter Summary ---
Author Organization [facility] Address [address] [place] [address] Care Team Providers Care Silver Miner Name Role Phone Unavailable Primary Care Provider Unavailabl e Encounter Details Date Type Department Care Team (Late st Contact Info) Description 09/16/2013 [facility] Vit[facility] [address] [place] [address] Provider, MD Renetta [address] [place] [address] Social History Tobacco Use Types Packs/Day [...]
--- OUTSIDE RECORDS SUMMARY | 2024-06-17 07:10 | XMS_ITS | Encounter Summary ---
Author Organization [facility] Address [address] [place] [address] Care Team Providers Care Controls Operator Molded Goods Name Role Phone Unavailable Primary Care Provider Unavailabl e Encounter Details Date Type Department Care Team (Late st Contact Info) Description 02/25/2014 [facility] Vit[facility] [address] [place] [address] Provider, MD Renetta [address] [place] [address] Social History Tobacco Use Types Packs/Day [...]
--- OUTSIDE RECORDS SUMMARY | 2024-06-17 07:10 | XMS_ITS | Encounter Summary ---
Author Organization [facility] Address [address] [place] [address] Care Team Providers Care Cnc Mill Programmer Name Role Phone Unavailable Primary Care Provider Unavailabl e Encounter Details Date Type Department Care Team (Late st Contact Info) Description 06/26/2017 [facility] Vit[facility] [address] [place] [address] Provider, MD Renetta [address] [place] [address] Social History Tobacco Use Types Packs/Day [...]
--- OUTSIDE RECORDS SUMMARY | 2024-06-17 07:10 | XMS_ITS | Clinical Summary ---
Author Organization [facility] Address [address] [place] [address] Care Team Providers Care Central Processing Tech Name Role Phone Sebastian Polanco MD Primary Care Provider [phone] Immunizations Name Administration Dates Next Due Influenza, [...] of Treatment Not on file Care Teams Central Processing Tech Relationship Specialty Start Date End Date Sebastian Polanco MD [address] [place] [address] PCP - General 12/03/20
--- OUTSIDE RECORDS SUMMARY | 2024-06-17 07:10 | XMS_ITS | Encounter Summary ---
Author Organization [facility] Address [address] [place] [address] Care Team Providers Care Thread Milling Machine Set Up Operator Name Role Phone Unavailable Primary Care Provider Unavailabl e Encounter Details Date Type Department Care Team (Late st Contact Info) Description 04/08/2015 [facility] Vit[facility] [address] [place] [address] Provider, MD Renetta [address] [place] [address] Social History Tobacco Use Types Packs/Day [...]
--- OUTSIDE RECORDS SUMMARY | 2024-06-17 07:10 | XMS_ITS | Encounter Summary ---
Author Organization [facility] Address [address] [place] [address] Care Team Providers Care Shower Screen Installer Name Role Phone Unavailable Primary Care Provider Unavailabl e Encounter Details Date Type Department Care Team (Late st Contact Info) Description 12/14/2016 [facility] Vit[facility] [address] [place] [address] Provider, MD Renetta [address] [place] [address] Social History Tobacco Use Types Packs/Day [...]
--- OUTSIDE RECORDS SUMMARY | 2024-06-17 07:10 | XMS_ITS | Patient Health Record ---
Author Organization [facility] Address [address] [facility] [address] [place] [address] Care Team Providers Care Grapple Crew Leader Name Role Phone Sebastian Polanco Primary Care Provider [phone] JessicaPatty Unavailable [phone] Allergies Allergen (clinical drug ingredient) Drug/Non Drug Allergy documented on EMR Reaction Allergy Type Onset Date Status [place] (uncoded) SOA Allergy Acti ve Medications Medication SIG (Take, Route, Frequency, Duration) Notes Start Date End Date Status diclofenac sodium 75 mg 1 tab(s) orally 2 times a day Active levalbuterol 1.25 mg/3 mL 3 mL by nebuli zer every 6 hours as needed Active loratadine 10 mg 1 tab(s) orally once a day Active Augmentin 500 mg-125 mg 1 tab(s) orally every 8 hours Active furosemide 20 mg 1 tab(s) orally once a day Active citalopram 20 mg 1 tab(s) orally once a day Active aspirin 81 mg 1 tab(s) orally once a day Active Xarelto 20 mg 1 tab(s) orally once a day Active Metoprolol Succinate ER 50 mg 1 tab(s) orally once a day Active multivitamin Lipotropic with Multivitamins 1 tab(s) orally once a day Active traZODone 50 mg as directed orally Active Immunizations Vaccine Route Administration Date Status [...] Problem Status W/U Status Risk Notes Problem 31764375 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) Active confirmed Problem 3970009 Supraventricular tachycardia (I47.1) Active confirmed Problem 03854132 Unspecified atri al fibrillation (I48.91) Active confirmed Problem 3704941 Unspecified atri al flutter (I48.92) Active confirmed Problem 36245726 Allergic rhiniti s (J30.9) Active confirmed Problem 90936266 Essential hypertension (I10) Active confirmed Problem 237213885 Hyperlipemia, 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 Problem 189812662 Asthma (J45.909) Active confirmed Problem 823818398 COPD exacerbatio n (J44.1) Active confirmed Problem 87555215 Idiopathic peripheral neuropathy (G60.9) Active confirmed Problem 78763264 Senile debility (R54) Active confirmed Problem 875324612 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 Problem 736995017 Frequent falls (R29.6) Active confirmed Problem 06494743 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) Active confirmed Problem 99606737 Post concussion syndrome (F07.81) Active confirmed Problem 04331307 Sacroiliac inflammation (M46.1) Active confirmed Problem 61871329 Sciatic leg pain (M54.30) Active confirmed Problem 70823544 Right sided sciatica (M54.31) Active confirmed Problem 363764174 TIA (transient ischemic attack) (G45.9) Active confirmed Problem 370201406 History of pulmonary embolism (Z86.711) Active confirmed Problem 448114572 Anticoagulant long-term use (Z79.01) Active confirmed Problem 3157376053674 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) Active confirmed Problem 075950274734365 Pulmonary emboli sm and infarction (I26.99) Active confirmed Problem 543376784 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, 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) Active confirmed Problem 44557443 Venous stasis dermatitis of both lower extremities (I87.2) Active confirmed Problem 4540389 Periorbital hematoma of right eye (H05.231) Active confirmed Problem 11154116 Ventricular ecto py (I49.3) Active confirmed Vital Signs Heart Rate 80 /min 06/13/2024 Temperature 98.4 degrees Fahrenheit 06/13/2024 Blood pressure diastolic 72 mm Hg 06/13/2024 Height 74.5 in 06/13/2024 Blood pressure systolic 123 mm Hg 06/13/2024 Weight 186 lbs 06/13/2024 BMI 23.56 kg/m2 06/13/2024 Encounters Encounter Location Date Provider Diagnosis [facility] [address] [place] [address] 06/16/2024 Sebastian Collin [facility] [address] [facility] [place] [address] 06/13/2024 Patty Lopez Traumatic rhabdomyol ysis, subsequent [...] encounter (ICD-10 - S31.000D) Plan Of Treatment Pending Test Test Name Order Date X ray : Chest 07/05/2006 Ultrasound : Carotids 12/24/2006 Urinalysis 08/19/2014 X ray : Tib/Fib, Left 07/05/2006 EKG : In House 12/24/2006 Physical Therapy 08/21/2008 Physical Therapy 02/15/2017 Physical Therapy 08/25/2008 CT Scan : Head, [...] End Date [place] [address] [place] [address] [id number] Isaias Garza Self - patient is the insured 4 [employer] [address] [place] [id number] Isaias Garza Self - patient is the [...] colonoscopy 12/07 with multiple tubular a denoma Fall with rhabdomyolysis 2023 Surgical History Surgery Date(Month/Year) rotator cuff tear repair Colon Resection 2011 hernia repair 07/2014 lt knee replacement 05/2016 back 08/2017 back 11/2017 Hospitalization History Reason Date(Month/Year) [facility] - fall, rhabdo and pneumonia 05/2024 Elevated bp/mini stroke 06/2020 colon resection, GI bleed 2011 chest pain 2007
--- OUTSIDE RECORDS SUMMARY | 2024-06-17 07:10 | XMS_ITS | Encounter Summary ---
Author Organization [facility] Address [address] [place] [address] Care Team Providers Care Stretch Machine Operator Name Role Phone Unavailable Primary Care Provider Unavailabl e Encounter Details Date Type Department Care Team (Late st Contact Info) Description 03/03/2015 [facility] Vit[facility] [address] [place] [address] Provider, MD Renetta [address] [place] [address] Social History Tobacco Use Types Packs/Day [...]
--- OUTSIDE RECORDS SUMMARY | 2024-06-17 07:10 | XMS_ITS | Encounter Summary ---
Author Organization [facility] Address [address] [place] [address] Care Team Providers Care Noodle Press Operator Name Role Phone Unavailable Primary Care Provider Unavailabl e Encounter Details Date Type Department Care Team (Late st Contact Info) Description 11/03/2016 [facility] Vit[facility] [address] [place] [address] Provider, MD Renetta [address] [place] [address] Social History Tobacco Use Types Packs/Day [...]
--- OUTSIDE RECORDS SUMMARY | 2024-06-17 07:10 | XMS_ITS | Encounter Summary ---
Author Organization [facility] Address [address] [place] [address] Care Team Providers Care Hockey Scout Name Role Phone Unavailable Primary Care Provider Unavailabl e Encounter Details Date Type Department Care Team (Late st Contact Info) Description 07/01/2014 [facility] Vit[facility] [address] [place] [address] Provider, MD Renetta [address] [place] [address] Social History Tobacco Use Types Packs/Day [...]
--- NOTE | 2024-06-17 07:17 | CT_ITS ---
FINAL REPORT TECHNIQUE: Thin section axial images were obtained from skull base to vertex without contrast. Coronal and sagittal reconstruction images were obtained from the axial data. Exam was performed using dose reduction technique. This study was performed with techniques to keep radiation doses as low as reasonably achievable (ALARA). Individualized dose reduction techniques using automated exposure control or adjustment of mA and/or kV according to the patient's size were employed. CLINICAL HISTORY: fall hit R frontal scalp, on xar COMPARISON: 06/08/2024 FINDINGS: There is age-appropriate atrophy. There is no mass effect or midline shift. There is no intracranial hemorrhage. There is no hydrocephalus. Periventricular low density is likely related to changes of chronic small vessel ischemia. The basilar cisterns are preserved. The posterior fossa is without acute abnormality. The soft tissues are without acute abnormality. No acute osseous abnormality is identified. IMPRESSION: No acute intracranial abnormality. Atrophy and changes suggesting chronic small vessel ischemia. Reviewed, Interpreted and Dictated by Desire Belcher MD Transcribed by Mariam Akers Authenticated and [facility]
--- NOTE | 2024-06-17 07:17 | CT_ITS ---
FINAL REPORT TECHNIQUE: Thin section axial images were obtained through the cervical spine without contrast. Multiplanar reconstruction images were obtained from the axial data. Exam was performed using dose reduction techniques. This study was performed with techniques to keep radiation doses as low as reasonably achievable (ALARA). Individualized dose reduction techniques using automated exposure control or adjustment of mA and/or kV according to the patient's size were employed. CLINICAL HISTORY: fall hit R frontal scalp, on xar COMPARISON: 06/08/2024 FINDINGS: There is no acute fracture or acute malalignment of the cervical spine. There is no evidence of unilateral or bilateral facet lock. Vertebral body height is preserved. No acute paraspinal abnormality is identified. Imaging of the lung apices reveals a cavitary masslike opacity in the right upper lobe. On the prior exam of 06/08/2024 this was a groundglass infiltrate, but now contains a cavitary process, pneumonia versus neoplasm. IMPRESSION: No acute osseous abnormality of the cervical spine. There is a cavitary masslike opacity in the right upper lobe, which on the prior exam of 9 days ago was ground glass in appearance. This new cavitation suggests pneumonia, although neoplasm cannot be excluded. Reviewed, Interpreted and Dictated by Desire Belcher MD Transcribed by Mariam Akers Authenticated and [facility]
[2024-06-17 07:20] VITALS: BP 160/88; PULSE 71; RESP 14; TEMP 37; O2SAT 96; BMI 26.9
[2024-06-17 08:01] VITALS: BP 159/92; PULSE 67; O2SAT 94
--- NOTE | 2024-06-17 08:10 | ED_ITS ---
Discharge Plan Disposition Chief Complaint: Fall Prescriptions Prescriptions: No Action furosemide 20 mg tablet 20 mg PO AM Patient Comments: TAKE 1 TABLET BY MOUTH IN THE MORNING diclofenac sodium 75 mg tablet,delayed release (DR/EC) 75 mg PO BID Patient Comments: TAKE 1 TABLET BY MOUTH TWICE DAILY loratadine 10 mg tablet 10 mg PO HS Patient Comments: TAKE 1 TABLET BY MOUTH ONCE DAILY AT BEDTIME losartan 25 mg tablet 25 mg PO DAILY Patient Comments: TAKE 1 TABLET BY MOUTH DAILY citalopram 20 mg tablet 20 mg PO DAILY Patient Comments: TAKE 1 TABLET BY MOUTH ONCE DAILY aspirin 81 mg Tablet,Delayed Release (Dr/Ec) 81 mg PO DAILY acetaminophen 325 mg Tablet 650 mg PO Q4HP PRN (Reason: Fever Or Mild Pain (1-3)) Qty: 0 0RF Pro-Stat AWC 17-100 gram-kcal/30 mL Liquid In Packet 1 ea PO BID Qty: 2880 0RF levalbuterol HCl 1.25 mg/3 mL Solution For Nebulization 1.25 mg inhalation Q6HP PRN (Reason: dyspnea) 30 Days Qty: 360 0RF trazodone 50 mg Tablet 50 mg PO HS 30 Days Qty: 30 0RF metoprolol succinate [Toprol XL] 50 mg Tablet Extended Release 24 Hr 50 mg PO DAILY 30 Days Qty: 30 0RF Xarelto 10 mg Tablet 20 mg PO QPMWITHMEAL 30 Days Qty: 60 0RF amoxicillin-pot clavulanate [Augmentin] 500-125 mg tablet 1 tab PO TID 10 Days Qty: 30 0RF Rx Instructions: start evening of 06/11/24 ibuprofen 600 MG tablet 600 mg PO Q6HP PRN (Reason: Mild Pain) Qty: 30 0RF Referrals Follow up/Referrals: Provider,Referral, MD [Primary Care Provider] - See instructions Activity Restrictions/Add. Instructions Additional Instructions/Restrictions: Call your family doctor to establish care for this visit to the emergency department and schedule follow-up within 48 hours to ensure improvement. If you have any worsening of your condition or any other concerning signs or symptoms, return to the emergency department or your primary care doctor for further evaluation. Talk to your family doctor about following right lung lesion. Clinical Impressions Clinical Impression: Fall, Closed head injury Print Language Print Language: Portuguese Discharge ED Provider: Darion Hooks General Adult HPI General Chief complaint: Fall Stated complaint: Fall Time Seen by Provider: 06/17/24 07:06 Mode of Arrival: EMS Source of Information: Patient and EMS Limitations: No Limitations Description of Symptoms (Recalled from ER Triage Doc. by RN): pt states he was transitioning to a wheelchair when he slipped and fell. pt denies any pain or LOC. pt states he hit the R front of his head on the floor but does not have any pain. PERRLA. History of Present Illness HPI narrative: Please note that above description of symptoms, in this electronic medical record under categorization of recalled from ER triage doctor by RN are reflective of an initial nursing assessment, however, is not reflective of my full history and physical exam that was personally taken and clarified. Consequentially, this preceding description of symptoms, which may include the patient's categorized chief complaint in the EMR, do not reflect my personal clinical impression, and the ultimate description of history of present illness and patient stated complaints should be deferred to this section of the note. Unless stated otherwise or congruent with this section of the note, additional signs, symptoms, or incongruence should be interpreted as inaccurate with my cli nical impression. Related Data Home Medications ?Medication ?Instructions ?Recorded ?Confirmed citalopram 20 mg tablet 20 mg PO DAILY 06/02/24 06/09/24 diclofenac sodium 75 mg 75 mg PO BID 06/02/24 06/09/24 tablet,delayed release furosemide 20 mg tablet 20 mg PO AM 06/02/24 06/09/24 loratadine 10 mg tablet 10 mg PO HS 06/02/24 06/09/24 losartan 25 mg tablet 25 mg PO DAILY 06/02/24 06/09/24 aspirin 81 mg tablet,delayed 81 mg PO DAILY 06/09/24 06/09/24 release Previous Rx's ?Medication ?Instructions ?Recorded ibuprofen 600 mg tablet 600 mg PO Q6HP PRN Mild Pain #30 09/08/20 tabs acetaminophen 325 mg tablet 650 mg (2 x 325 mg) PO Q4HP PRN 06/11/24 Fever Or Mild Pain (1-3) #0 tabs amino acids-protein hydrolysate 17 1 ea PO BID #2,880 mL 06/11/24 gram-100 kcal/30 mL liquid packet (Pro-Stat AWC) amoxicillin 500 mg-potassium 1 tab PO TID 10 days #30 tabs 06/11/24 clavulanate 125 mg tablet (Augmentin) levalbuterol HCl 1.25 mg/3 mL 1.25 mg (3 mL) inhalation Q6HP PRN 06/11/24 solution for nebulization dyspnea 30 days #360 mL metoprolol succinate 50 mg 50 mg PO DAILY 30 days #30 tabs 06/11/24 tablet,extended release 24 hr (Toprol XL) rivaroxaban 10 mg tablet (Xarelto) 20 mg (2 x 10 mg) PO QPMWITHMEAL 06/11/24 30 days #60 tabs trazodone 50 mg tablet 50 mg PO HS 30 days #30 tabs 06/11/24 Allergies Allergy/AdvReac Type Severity Reaction Status Date / Time hydrocodone (From [place]) Allergy Other Verified 06/09/24 00:41 [facility] Disclaimer: The information contained in this section may have been updated after the patient was seen, as this information can be updated by other users. Medical History (Updated 06/17/24 @ 09:08 by Darion Hooks MD) History of recent fall Atrial flutter Atrial fibrillation Elevated troponin Acute respiratory failure with hypoxia Necrotizing pneumonia Hemoptysis Keratosis Fissure in skin of foot Pre-ulcerative calluses Pain in both feet Edema of both feet Chest pain Laceration TIA (transient ischemic attack) Hypertensive urgency Fracture of sacrum Fracture of left distal radius Wrist fracture, left Gastrointestinal bleeding, lower Chronic pulmonary embolism Surgical History (Updated 06/08/24 @ 21:57 by Moustapha Alonso APRN) History of bowel resection H/O inguinal hernia repair Social History Smoking Status: Never smoker second hand exposure: Yes alcohol intake: never counseling provided: provider counseling substance use type: denies use current occupational status: employed household members: spouse housing: house 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 current occupational exposures/hazards: No caffeine: Yes Other Medical History Have you received the Flu Vaccine for this season: No Have you received the Pneumonia Vaccine: No ROS Obtained: Yes All systems reviewed & no additional complaints except as documented Physical Exam General General appearance: alert Head Head exam: atraumatic and normocephalic Eye Eye exam: Present normal appearance, PERRL and EOMI Neck Neck exam: Present normal inspection, full ROM and trachea midline Respiratory Respiratory exam: Absent respiratory distress, wheezes, stridor, accessory muscle use or prolonged expiratory phase Cardiovascular Cardiovascular exam: Present other (Pulses equal symmetric in upper and lower extremities) Abdominal Exam Abdominal exam: Present soft; Absent distention, tenderness or pulsatile mass Extremities Exam Extremities exam: Absent edema Neurological Exam Neurological exam: Present alert, oriented X3 (oriented to person, place, situation, month, not year) and CN II-XII intact; Absent motor sensory deficit Skin Skin exam: Present warm and dry; Absent diaphoresis or erythema Medical Decision Making Medical Records Medical records reviewed: Yes I reviewed the patient's medical records. Screening: Per USPSTF and CDC recommendations, given the prevalence of disease in our region, it is our hospital?s policy to screen for HIV and viral Hepatitis for all patients aged 18 and over and those with ongoing risk factors. Jamir Inquiry Pt receiving controlled substance: No Jamir was queried for this patient: No Vital Signs: 06/17/24 07:09 06/17/24 07:20 06/17/24 08:01 Temperature 98.6 F Temperature Source Oral Pulse Rate 70 67 Pulse Rate [Left] 71 Respiratory Rate 14 Blood Pressure 160/88 H 159/92 H Blood Pressure [Right Arm] 160/88 H Blood Pressure Mean [Right Arm] 112 Blood Pressure Source [Right Arm] Automatic Cuff Blood Pressure Position [Right Arm] Sitting 02 Sat by Pulse Oximetry 96 96 94 L Oxygen Delivery Method Room Air Orders (Tests/Meds): ORDERS Category Date Time Status CT cervical spine wo con Stat Cat Scan 06/17/24 07:[address] head/brain wo con Stat Cat Scan 06/17/24 07:17 Completed Medical Decision Narrative: 83-year-old male history of hypertension hyperlipidemia, diabetes, atrial fibrillation on Xarelto, mild cough impairment presenting with fall. Patient states that he was transferring from his bed to his wheelchair just for arrival when he fell to the right, hit the right side of his forehead. No loss of consciousness. Brought to the emergency department given his anticoagulation. No acute complaints on arrival. History was obtained via conversation with patient and EMS. On arrival, patient hemodynamically stable, alert, oriented to person, place, situation, month, but not year appropriate, GCS 15, moving all extremities spontaneously, pupils equal and reactive to light. Full physical exam performed and significant for atraumatic head and neck. In cervical collar. Patient neurologically intact otherwise, secondary exam unremarkable. Differential includes intracranial bleed, cervical spine injury, among others. Patient placed on continuous cardiac monitoring and continuous pulse ox with initial blood pressure 160/88, heart rate in the, saturation 96% on room air. Labs not deemed necessary at this time. Independent interpretation of workup demonstrates no acute intracranial hemorrhage or cervical spine injury on CT. See radiology read for definitive interpretation. Patient does have a stable cavitary lesion right upper lobe. Relayed to patient. Because patient at baseline without signs or symptoms of clinical decompensation, deemed appropriate for discharge. Results were relayed to patient who voiced understanding and were agreeable to outpatient management and follow up. I discussed my clinical impression with patient and answered all questions. At this time, the evidence for any other entities in the differential is insufficient to warrant any further testing or ED observation. This was explained as well. Advisory was given that persistent or worsening symptoms require further evaluation. I confirmed the understanding of this discussion. Pipe Out Worker disclaimer Much of this encounter note is an electronic tray casting machine operator spoken language to printed text. Electronic tray casting machine operator of the spoken language may permit errors. Although I have reviewed the note, some errors may still exist. Critical Care Critical Care Time Critical Care Time: No
--- NOTE | 2024-06-17 09:07 | PC.NURSE ---
Removed C-collar per Dr Hooks.
--- NOTE | 2024-06-17 09:12 | PC.NURSE ---
per ok to remove C-Collar
[2024-06-17 09:28] VITALS: BP 156/93; PULSE 69; RESP 18; TEMP 36.8; O2SAT 96
== END 2024-06-17 10:42 ==
PROVIDERS: Emergency Provider Emergency Medicine
DX: S09.90XA Unspecified injury of head, initial encounter (principal); R05.8 Other specified cough; W06.XXXA Fall from bed, initial encounter; Y93.89 Activity, other specified; Y92.003 Bedroom of unspecified non-institutional (private) residence as the place of occurrence of the external cause
CPT/HCPCS: 70450; 72125; 99284

== ENCOUNTER 2024-06-24 15:11 | Outpatient (CLI) | payer MEDICARE, OTHER, SELFPAY ==
--- OUTSIDE RECORDS SUMMARY | 2024-06-24 15:17 | XMS_ITS | Encounter Summary ---
Author Organization Healthcare Address [address] [place] [address] Care Team Providers Care Financial Writer Name Role Phone Unavailable Primary Care Provider Unavailabl e Encounter Details Date Type Department Care Team (Late st Contact Info) Description 12/14/2016 [facility] Vitals En[facility] [address] [place] [address] Provider, MD Renetta [address] [place] [address] Social History Tobacco Use Types Packs/Day [...]
--- OUTSIDE RECORDS SUMMARY | 2024-06-24 15:17 | XMS_ITS | Encounter Summary ---
Author Organization Healthcare Address [address] [place] [address] Care Team Providers Care Livestock Trucker Name Role Phone Unavailable Primary Care Provider Unavailabl e Encounter Details Date Type Department Care Team (Late st Contact Info) Description 03/08/2016 [facility] Vit[facility] [address] [place] [address] Provider, MD Renetta [address] [place] [address] Social History Tobacco Use Types Packs/Day [...]
--- OUTSIDE RECORDS SUMMARY | 2024-06-24 15:17 | XMS_ITS | Encounter Summary ---
Author Organization Healthcare Address [address] [place] [address] Care Team Providers Care Restorer Lace And Textiles Name Role Phone Unavailable Primary Care Provider Unavailabl e Encounter Details Date Type Department Care Team (Late st Contact Info) Description 11/03/2016 [facility] Vitals En[facility] [address] [place] [address] Provider, MD Renetta [address] [place] [address] Social History Tobacco Use Types Packs/Day [...]
--- OUTSIDE RECORDS SUMMARY | 2024-06-24 15:17 | XMS_ITS | Encounter Summary ---
Author Organization Healthcare Address [address] [place] [address] Care Team Providers Care Loom Starter Name Role Phone Unavailable Primary Care Provider Unavailabl e Encounter Details Date Type Department Care Team (Late st Contact Info) Description 03/03/2015 [facility] Vit[facility] [address] [place] [address] Provider, MD Renetta [address] [place] [address] Social History Tobacco Use Types Packs/Day [...]
--- OUTSIDE RECORDS SUMMARY | 2024-06-24 15:17 | XMS_ITS | Clinical Summary ---
Author Organization Healthcare Address [address] [place] [address] Care Team Providers Care Pin Inserter Name Role Phone Sebastian Polanco MD Primary Care Provider [phone] Immunizations Name Administration Dates Next Due Influenza, [...] of Treatment Not on file Care Teams Pin Inserter Relationship Specialty Start Date End Date Sebastian Polanco MD [address] [place] [address] PCP - General 12/03/20
--- OUTSIDE RECORDS SUMMARY | 2024-06-24 15:17 | XMS_ITS | Encounter Summary ---
Author Organization Healthcare Address [address] [place] [address] Care Team Providers Care Sports Physical Therapist Name Role Phone Unavailable Primary Care Provider Unavailabl e Encounter Details Date Type Department Care Team (Late st Contact Info) Description 04/26/2016 [facility] Vit[facility] [address] [place] [address] Provider, MD Renetta [address] [place] [id number] Social History Tobacco Use Types Packs/Day [...]
--- OUTSIDE RECORDS SUMMARY | 2024-06-24 15:17 | XMS_ITS | Encounter Summary ---
Author Organization Healthcare Address [address] [place] [address] Care Team Providers Care Medical Equipment Technician Name Role Phone Unavailable Primary Care Provider Unavailabl e Encounter Details Date Type Department Care Team (Late st Contact Info) Description 06/26/2017 [facility] Vit[facility] [address] [place] [address] Provider, MD Renetta [address] [place] [address] Social History Tobacco Use Types Packs/Day [...]
--- OUTSIDE RECORDS SUMMARY | 2024-06-24 15:17 | XMS_ITS | Encounter Summary ---
Author Organization Healthcare Address [address] [place] [address] Care Team Providers Care Borematic Machine Operator Name Role Phone Unavailable Primary Care Provider Unavailabl e Encounter Details Date Type Department Care Team (Late st Contact Info) Description 01/09/2017 [facility] Vit[facility] [address] [place] [address] Provider, MD Renetta [address] [place] [address] Social History Tobacco Use Types Packs/Day [...]
--- OUTSIDE RECORDS SUMMARY | 2024-06-24 15:17 | XMS_ITS | Encounter Summary ---
Author Organization Healthcare Address [address] [place] [address] Care Team Providers Care Sprigger Name Role Phone Unavailable Primary Care Provider Unavailabl e Encounter Details Date Type Department Care Team (Late st Contact Info) Description 02/25/2014 [facility] Vit[facility] En[facility] [address] [place] [address] Provider, MD Renetta [address] [place] [address] Social History Tobacco Use Types Packs/Day [...]
--- OUTSIDE RECORDS SUMMARY | 2024-06-24 15:17 | XMS_ITS | Encounter Summary ---
Author Organization Healthcare Address [address] [place] [address] Care Team Providers Care Water Pump Assembler Name Role Phone Unavailable Primary Care Provider Unavailabl e Encounter Details Date Type Department Care Team (Late st Contact Info) Description 11/23/2016 [facility] Vit[facility] [address] [place] [address] Provider, MD Renetta [address] [place] [address] Social History Tobacco Use Types Packs/Day [...]
--- OUTSIDE RECORDS SUMMARY | 2024-06-24 15:17 | XMS_ITS | Encounter Summary ---
Author Organization Healthcare Address [address] [place] [address] Care Team Providers Care Machine Scallop Cutter Name Role Phone Unavailable Primary Care Provider Unavailabl e Encounter Details Date Type Department Care Team (Late st Contact Info) Description 09/16/2013 [facility] [address] [place] [address] Provider, MD Renetta [address] [place] [address] Social History Tobacco Use Types Packs/Day [...]
--- OUTSIDE RECORDS SUMMARY | 2024-06-24 15:17 | XMS_ITS | Encounter Summary ---
Author Organization Healthcare Address [address] [place] [address] Care Team Providers Care Electrical Assemblies Supervisor Name Role Phone Unavailable Primary Care Provider Unavailabl e Encounter Details Date Type Department Care Team (Late st Contact Info) Description 07/01/2014 [facility] [address] [place] [address] Provider, MD Renetta [address] [place] [address] Social History Tobacco Use Types Packs/Day [...]
--- OUTSIDE RECORDS SUMMARY | 2024-06-24 15:17 | XMS_ITS | Encounter Summary ---
Author Organization Healthcare Address [address] [place] [address] Care Team Providers Care Wood Boat Builder Supervisor Name Role Phone Unavailable Primary Care Provider Unavailabl e Encounter Details Date Type Department Care Team (Late st Contact Info) Description 04/08/2015 [facility] [address] [place] [address] Provider, MD Renetta [address] [place] [id number] Social History Tobacco Use Types Packs/Day [...]
[2024-06-24 17:00] LABS: Free T4 (Free Thyroxine) 1.15 ng/dl (0.78-2.19)
[2024-06-24 17:27] LABS: Albumin Level 3.4 g/dl (3.5-5.0); Chloride 103 mmol/L (98-107); Potassium 4.3 mmoL/L (3.5-5.1); Sodium 137 mmol/L (136-145)
[2024-06-24 17:29] LABS: Blood Urea Nitrogen 15 mg/dl (9-20); Estimated Glomerular Filt Rate 92 ml/min (>60); GFR (African American) 111 ML/MIN (>60)
[2024-06-24 17:30] LABS: Alanine Aminotransferase 54 U/L (12-78); Alkaline Phosphatase 94 U/L (38-126); Anion Gap 8.3 mEq/L (5-15); Aspartate Amino Transferase 42 U/L (17-59); Bilirubin,Direct 0.3 mg/dl (0.0-0.4); Bilirubin,Indirect 0.1 mg/dL (0.0-0.9); Bilirubin,Total 0.4 mg/dl (0.2-1.3); Calcium 8.9 mg/dl (8.4-10.2); Carbon Dioxide 30 mmol/L (22.0-30.0); Chol/HDL Ratio 4.5 (1-3.5); Cholesterol 130 mg/dl (140-200); Creatine Kinase 43 U/L (55-170); Glucose 114 mg/dl (74-100); HDL Cholesterol 29 mg/dl (40-60); Total Protein,Serum 5.6 g/dl (6.3-8.2); Triglycerides 160 mg/dl (30-150); VLDL Cholesterol 32 mg/dL (0-40)
[2024-06-24 17:39] LABS: NT Pro Brain Natriuretic Pep. 2210 pg/mL (0-450)
[2024-06-24 17:41] LABS: Direct LDL Cholesterol 69.19 mg/dL (100-129)
== END 2024-06-24 23:59 | disposition home or self-care (01) ==
LOC: LAB 15:16
PROVIDERS: Internal Medicine; PCP Internal Medicine Adolescent Medicine; Visit Provider Internal Medicine Pulmonary Disease
DX: I48.91 Unspecified atrial fibrillation (principal); R79.89 Other specified abnormal findings of blood chemistry; I48.92 Unspecified atrial flutter; R60.9 Edema, unspecified; R06.09 Other forms of dyspnea
CPT/HCPCS: 36415; 80048; 80061; 80076; 82550; 83880; 84439; 84443

== ENCOUNTER 2024-06-30 12:01 | Outpatient (CLI) | payer MEDICARE, OTHER, SELFPAY ==
--- OUTSIDE RECORDS SUMMARY | 2024-06-30 12:06 | XMS_ITS ---
Author Organization [facility] Address [address] [place] [address] Care Team Providers Care Boot Liner Maker Name Role Phone Sebastian Polanco Primary Care Provider Patty Lopez Unavailable [phone] Allergies Allergen (clinical drug ingredient) Drug/Non Drug Allergy documented on EMR Reaction Allergy Type Onset Date Status [place] (uncoded) SOA Allergy Acti ve REASON FOR [...] Problem Status W/U Status Risk Notes Problem 55365025 Senile debility (R54) Active confirmed Problem 02047539 Unspecified atrial fibrillation (I48.91) Active confirmed Problem 3203058 Unspecified atrial flutter (I48.92) Active confirmed Vital Signs Temperature 98.4 degrees Fahrenheit 06/13/20 24 Heart Rate 80 /min 06/13/2024 Blood pressure systolic 123 mm Hg 06/13/20 24 Blood pressure diastolic 72 mm Hg 024 Height 74.5 in 06/13/2024 Weight 186 lbs 06/13/2024 BMI 23.56 kg/m2 06/13/2024 Encounters Encounter Location Date Provider Diagnosis [address] [place] [address] 06/13/2024 Patty Lopez Traumatic rhabdomyol ysis, subsequent [...] Isaias GARZA CDOB:[birth year] (83 yo M)Acc No.[id number]:06/13/2024 Patient:?Isaias GARZA Provider:?CHARLES Jaquez :1940???Age:83 Y???Sex:Male Bran e:06/13/2024 Address:[address] [place], [place] [address] Pcp:Sebastian Polanco Subjective: * Chief Complaints: * ???1. [facility] History and Physical. * HPI: ???gen:?Seen today at [facility] to follow-up since admission to facility. Admitted from [facility] after a stay there June 08 through [...] Maternal Grand Mother: .?Siblings: , 2 brother- MS.?Children: alive.?2 brother(s) . 2 son(s) - healthy. [...] reviewed and reconciled with the patient * Allergies:?[place]: SOA. Objective: * Vitals:?Nurse: LIDIA, Pain: un [...] Jaquez Date:? 06/13/2024 Generated for Monica decker/Juan/Areli on:?06/30/2024 12:06 PM EST History and Physical Notes * Examination [...]
--- OUTSIDE RECORDS SUMMARY | 2024-06-30 12:06 | XMS_ITS ---
Author Organization [facility] Address [address] [place] [address] Care Team Providers Care Word Processing Operator Name Role Phone Sebastian Polanco Primary Care Provider Allergies Allergen (clinical drug ingredient) Drug/Non Drug Allergy documented on EMR Reaction Allergy Type Onset Date Status [place] (uncoded) SOA Allergy Acti ve REASON FOR VISIT NE MD f/u visit Medications Medication SIG (Take, Route, Frequency, Duration) Notes Start Date End Date Status Xarelto 20 mg 1 tab(s) orally once a day Active citalopram 20 mg 1 tab(s) orally once a day Active furosemide 20 mg 1 tab(s) orally once a day Active Augmentin 500 mg-125 mg 1 tab(s) orally every 8 hours Active loratadine 10 mg 1 tab(s) orally once a day Active multivitamin Lipotropic with Multivitamins 1 tab(s) orally once a day Active Metoprolol Succinate ER 50 mg 1 tab(s) orally once a day Active aspirin 81 mg 1 tab(s) orally once a day Active traZODone 50 mg as directed orally Active levalbuterol 1.25 mg/3 mL 3 mL by nebuli zer every 6 hours as needed Active diclofenac sodium 75 mg 1 tab(s) orally 2 times a day Active Vital Signs Temperature 98 degrees Fahrenheit 06/16/2024 Heart Rate 80 /min 06/16/2024 Blood pressure systolic 120 mm Hg 06/16/20 24 Blood pressure diastolic 78 mm Hg 024 Height 74.5 in 06/16/2024 Weight 186 lbs 06/16/2024 BMI 23.56 kg/m2 06/16/2024 Encounters Encounter Location Date Provider Diagnosis Brenda Yang xu [place], [place] [address] 06/16/2024 Sebastian Polanco Traumatic rhabdomyol ysis, subsequent encounter T79.6XXD ; [...] Treatment Notes Treatment Clinical Notes Section Notes 06/16/2024 Traumatic rhabdomyolysis, subsequent encounter (ICD-10 - T79.6XXD) Rec PT/OT/ST evaluation and treat if indicated Goal to return home Monitor cognition FU labs next week Rec add PPI since he is on aspirin, xarelto, diclofenac. DC PRN ibuprofen. 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 Lopez. No changes in plan or meds as outlined in her note. Patient's cognitive impairment since I last saw him in 2020 is significantly worse. Reasonable goal to return home but would need significant support at home. Continue following the shelter at this point Plan Of Treatment Treatment Notes Assessment Notes Other I agree with notes above by Ms. Lopez. No changes in plan or meds as outlined in her note. Patient's cognitive impairment since I last saw him in 2020 is significantly worse. Reasonable goal to return home but would need significant support at home. Continue following the shelter at this point Next Appt Details Follow Up: prn, Reason: Progress Notes * Isaias GARZA CDOB:[birth year] (83 yo M)Acc No.[id number]:06/16/2024 Patient:?Isaias GARZA Provider:?Sebastian Polanco MD :1940???Age:83 Y???Sex:Male Bran e:06/16/2024 Address:[address] [place], [place] [id number] Subjective: * Chief Complaints: * ???1. [place] MD f/u visit. * HPI: ???gen:?Seen today at [facility] to follow-up since admission to facility. Admitted from [facility] after a stay there June 08 after being found down at his home. [...] was recommended and outpatient follow-up with cardiology. Above Per Ms. Lopez, I have reviewed the history, agree with note above. Patient has no complaints today. Does not appear to remember me from previous visits. * Medical History:?Hypertensio n, DVT/pulmonary embolism, Hernia [...] Maternal Grand Mother: .?Siblings: , 2 brother- [place].?Children: alive.?2 brother(s) . 2 son(s) - healthy. .? * Social History:?Smoking?Are you a:: nonsmoker.?Recreational drug [...] 1 tab(s) orally once a day , Medication List reviewed and reconciled with the patient * Allergies:?[place]: SOA. Objective: * Vitals:?Nurse: yodit, Pain: un able, Temp: 98, RR: 16, HR: 80, BP: 120/78, Ht: 74.5, Wt: 186, BMI:23.56. * Examination: [...] Notes: losartan held during hospital stay, monitor?? 3.?Others? Notes: I agree with notes above by Ms. Lopez. No changes in plan or meds as outlined in her note. Patient's cognitive impairment since I last saw him in 2020 is significantly worse. Reasonable goal to return home but would need significant support at home. Continue following the shelter at this point?? * Follow Up:?prn * * Sign off status: Completed true * Provider:?Sebastian Polanco MD Date :?06/16/2024 Generated for Monica decker/Juan/eTransmitting on:?06/30/2024 12:06 PM EST History and Physical [...]
--- OUTSIDE RECORDS SUMMARY | 2024-06-30 12:07 | XMS_ITS | Encounter Summary ---
Author Organization Healthcare Address [address] [place] [address] Care Team Providers Care 1St Pressman On Web Press Name Role Phone Unavailable Primary Care Provider Unavailabl e Encounter Details Date Type Department Care Team (Late st Contact Info) Description 03/08/2016 [facility] Vitals Encounter [facility] [address] [place] [address] Provider, MD Renetta [address] [place] [address] Social History Tobacco Use Types Packs/Day [...]
--- OUTSIDE RECORDS SUMMARY | 2024-06-30 12:07 | XMS_ITS | Clinical Summary ---
Author Organization [facility] Address [address] [place] [address] Care Team Providers Care R And D Lab Technician Name Role Phone Sebastian Polanco MD Primary Care Provider + [phone] Immunizations Name Administration Dates Next Due Influenza, [...] of Treatment Not on file Care Teams R And D Lab Technician Relationship Specialty Start Date End Date Sebastian Polanco MD [address] [place] [address] PCP - General 12/03/20
--- OUTSIDE RECORDS SUMMARY | 2024-06-30 12:07 | XMS_ITS | Encounter Summary ---
Author Organization [facility] Address [address] [place] [address] Care Team Providers Care Physician Anesthesiologist Name Role Phone Unavailable Primary Care Provider Unavailabl e Encounter Details Date Type Department Care Team (Late st Contact Info) Description 03/03/2015 [facility] Vitals Encounter [facility] [address] [place] [address] Provider, MD Renetta [address] [place] [address] Social History Tobacco Use Types Packs/Day [...]
--- OUTSIDE RECORDS SUMMARY | 2024-06-30 12:07 | XMS_ITS | Patient Health Record ---
Author Organization [facility] Address [address] [facility] [address] [place] [address] Care Team Providers Care Newscast Producer Name Role Phone Sebastian Polanco Primary Care Provider Patty Lopez Unavailable [phone] Allergies Allergen (clinical drug ingredient) Drug/Non Drug Allergy documented on EMR Reaction Allergy Type Onset Date Status [place] (uncoded) SOA Allergy Acti ve Results Component Value Reference Range Notes M-Urinalysis and Microscopic Reviewed date:06/26/2024 08:47:50 AM Interpretation: Performing Lab: Notes/Report: FAX RESULTS TO [facility] [phone] UCOL YELLOW Yellow UAPP CLEAR Clear UPH 6.0 5.0-8.5 USG 1.025 1.005-1.030 UPRO Negative Negative UGLU Negative Negative UKET Negative Negative UBLD Negative Negative UNIT Negative Negative UBIL Negative Negative UURO 0.2 0.2 EU/dl ULEU Negative Negative UMICU URINE MICROSCOPIC MICROSCOPIC UWBC 3-5 0-3 #/hpf USQEPI Occasional 0-5 #/hpf UBACT 1+ NONE /lpf UMUC 1+ None /lpf Medications Medication SIG (Take, Route, Frequency, Duration) Notes Start Date End Date Status multivitamin Lipotropic with Multivitamins 1 tab(s) orally [...] 1 tab(s) orally once a day Active diclofenac sodium 75 mg 1 tab(s) orally 2 times a day Active traZODone 50 mg as directed orally Active levalbuterol 1.25 mg/3 mL 3 mL by nebuli zer every 6 hours as needed Active Immunizations Vaccine Route Administration Date Status [...] Problem Status W/U Status Risk Notes Problem 24001243 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) Active confirmed Problem 9309039 Supraventricular tachycardia (I47.1) Active confirmed Problem 62499906 Unspecified atri al fibrillation (I48.91) Active confirmed Problem 7160700 Unspecified atri al flutter (I48.92) Active confirmed Problem 71800106 Allergic rhiniti s (J30.9) Active confirmed Problem 96568315 Essential hypertension (I10) Active confirmed Problem 058054321 Hyperlipemia, 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 Problem 830967388 Asthma (J45.909) Active confirmed Problem 018681922 COPD exacerbatio n (J44.1) Active confirmed Problem 93787658 Idiopathic peripheral neuropathy (G60.9) Active confirmed Problem 70752928 Senile debility (R54) Active confirmed Problem 027253098 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 Problem 459006431 Frequent falls (R29.6) Active confirmed Problem 74894484 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) Active confirmed Problem 01192597 Post concussion syndrome (F07.81) Active confirmed Problem 80192197 Sacroiliac inflammation (M46.1) Active confirmed Problem 34685358 Sciatic leg pain (M54.30) Active confirmed Problem 72200286 Right sided sciatica (M54.31) Active confirmed Problem 633322454 TIA (transient ischemic attack) (G45.9) Active confirmed Problem 369743362 History of pulmonary embolism (Z86.711) Active confirmed Problem 526710974 Anticoagulant long-term use (Z79.01) Active confirmed Problem 6327640378731 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) Active confirmed Problem 883363429927895 Pulmonary emboli sm and infarction (I26.99) Active confirmed Problem 570004294 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, 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) Active confirmed Problem 62580579 Venous stasis dermatitis of both lower extremities (I87.2) Active confirmed Problem 2024798 Periorbital hematoma of right eye (H05.231) Active confirmed Problem 33116227 Ventricular ecto py (I49.3) Active confirmed Vital Signs Heart Rate 80 /min 06/16/2024 Temperature 98 degrees Fahrenheit 06/16/2024 Blood pressure diastolic 78 mm Hg 06/16/2024 Height 74.5 in 06/16/2024 Blood pressure systolic 120 mm Hg 06/16/2024 Weight 186 lbs 06/16/2024 BMI 23.56 kg/m2 06/16/2024 Encounters Encounter Location Date Provider Diagnosis [address] [place] [address] 06/13/2024 Patty Lopez Traumatic rhabdomyol ysis, subsequent encounter T79.6XXD ; Community acquired pneumonia, unspecified laterality J18.9 ; Senile debility R54 ; Chronic depression F32.A ; Arthralgia of multiple joints M25.50 ; Essential hypertension I10 ; Unspecified atrial fibrillation I48.91 ; Unspecified atrial flutter I48.92 and Wound of sacral region, subsequent encounter S31.000D [address] [place] [address] 06/16/2024 Sebastian Polanco Traumatic rhabdomyol ysis, subsequent [...] pneumonia, unspecified laterality (ICD-10 - J18.9) 06/16/2024 Traumatic rhabdomyolysis, subsequent encounter (ICD-10 - T79.6XXD) Rec PT/OT/ST evaluation and treat if indicated Goal to return home Monitor cognition FU labs next week Rec add PPI since he is on aspirin, xarelto, diclofenac. DC PRN ibuprofen. ARMANDO for wound management 06/16/2024 Community acquired pneumonia, unspecified laterality (ICD-10 - J18.9) 06/16/2024 Senile debility (ICD-10 - R54) 06/13/2024 Senile debility (ICD-10 - R54) 06/13/2024 Chronic depression (ICD-10 - F32.A) 06/16/2024 Chronic depression (ICD-10 - F32.A) 06/16/2024 Arthralgia of multiple joints (ICD-10 - M25.50) 06/13/2024 Arthralgia of multiple joints (ICD-10 - M25.50) 06/13/2024 Essential hypertension (ICD-10 - I10) losartan held during hospital stay, monitor 06/16/2024 Essential hypertension (ICD-10 - I10) losartan held during hospital stay, monitor 06/16/2024 Unspecified atrial fibrillation (ICD-10 - I48.91) 06/13/2024 Unspecified atrial fibrillation (ICD-10 - I48.91) 06/13/2024 Unspecified atrial flutter (ICD-10 - I48.92) 06/16/2024 Unspecified atrial flutter (ICD-10 - I48.92) 06/13/2024 Wound of sacral region, subsequent encounter (ICD-10 - S31.000D) 06/16/2024 Wound of sacral region, subsequent encounter (ICD-10 - S31.000D) 06/16/2024 Other I agree with notes above by Ms. Lopez. No changes in plan or meds as outlined in her note. Patient's cognitive impairment since I last saw him in 2020 is significantly worse. Reasonable goal to return home but would need significant support at home. Continue following the [facility] at this point Plan Of Treatment Pending Test Test Name Order Date X ray : Chest 07/05/2006 Ultrasound : Carotids 12/24/2006 Urinalysis 08/19/2014 X ray : Tib/Fib, Left 07/05/2006 EKG : In House 12/24/2006 Physical Therapy 08/21/2008 Physical Therapy 02/15/2017 Physical Therapy 08/25/2008 CT Scan : Head, with/without contrast Doppler: Venous, L Lower Extremity 05/02 Holter Monitor, 48 hour 02/04/2019 H-VITAMIN B12 10/09/2016 H-PT/INR 02/13/2012 H-PT/INR 02/10/2012 H-PT/INR 02/08/2012 H-ANTITHROMBIN III,ANTIGEN 02/28/2017 H-PROTEIN C ACTIVITY 02/28/2017 H-PROTEIN S ACTIVITY 02/28/2017 H-RAPID PLASMA REAGIN 10/09/2016 C-URIC ACID 10/02/2011 H-PTT 08/18/2013 Pulmonary Function Test- Complete 2013 M-Prostate Specific Ag, Diagnost 019 Insurance Providers Payer Name Payer Address Payer Phone Subscriber Number Group Number Insured Name Patient Relationship to Insured Coverage Start Date Coverage End Date MEDICARE [place] [address] [place] [address] [id number] Isaias Garza Self - patient is the insured 4 [employer] [address] [place] [address] [id number] Isaias Garza Self - patient is the [...] Hospitalization History Reason Date(Month/Year) chest pain 2007 [facility] - fall, rhabdo and pneumonia 05/2024 Elevated bp/mini stroke 06/2020 colon resection, GI bleed 2011
--- OUTSIDE RECORDS SUMMARY | 2024-06-30 12:07 | XMS_ITS | Encounter Summary ---
Author Organization Healthcare Address [address] [place] [address] Care Team Providers Care Engineering Test Mechanic Name Role Phone Unavailable Primary Care Provider Unavailabl e Encounter Details Date Type Department Care Team (Late st Contact Info) Description 04/08/2015 [facility] Vitals Encounter [facility] [address] [place] [address] Provider, MD Renetta [address] [place] [address] Social History Tobacco Use Types Packs/Day [...]
--- OUTSIDE RECORDS SUMMARY | 2024-06-30 12:07 | XMS_ITS | Encounter Summary ---
Author Organization [facility] Address [address] [place] [address] Care Team Providers Care Ore Roaster Name Role Phone Unavailable Primary Care Provider Unavailabl e Encounter Details Date Type Department Care Team (Late st Contact Info) Description 11/03/2016 [facility] Vitals Encounter [facility] [address] [place] [address] Provider, MD Renetta [address] [place] [address] Social History Tobacco Use Types Packs/Day [...]
--- OUTSIDE RECORDS SUMMARY | 2024-06-30 12:07 | XMS_ITS | Encounter Summary ---
Author Organization Healthcare Address [address] [place] [address] Care Team Providers Care Loom Repairer Name Role Phone Unavailable Primary Care Provider Unavailabl e Encounter Details Date Type Department Care Team (Late st Contact Info) Description 11/23/2016 [facility] Vitals Encounter [facility] [address] [place] [address] Provider, MD Renetta [address] [place] [address] Social History Tobacco Use Types Packs/Day [...]
--- OUTSIDE RECORDS SUMMARY | 2024-06-30 12:07 | XMS_ITS | Encounter Summary ---
Author Organization [facility] Address [address] [place] [address] Care Team Providers Care Legal File Clerk Name Role Phone Unavailable Primary Care Provider Unavailabl e Encounter Details Date Type Department Care Team (Late st Contact Info) Description 02/25/2014 [facility] Vitals Encounter [facility] [address] [place] [address] Provider, MD Renetta [address] [place] [address] Social History Tobacco Use Types Packs/Day [...]
--- OUTSIDE RECORDS SUMMARY | 2024-06-30 12:07 | XMS_ITS | Encounter Summary ---
Author Organization Healthcare Address [address] [place] [address] Care Team Providers Care Shop Blacksmith Name Role Phone Unavailable Primary Care Provider Unavailabl e Encounter Details Date Type Department Care Team (Late st Contact Info) Description 07/01/2014 [facility] Vitals Encounter [facility] [address] [place] [address] Provider, MD Renetta [address] [place] [address] Social History Tobacco Use Types Packs/Day [...]
--- OUTSIDE RECORDS SUMMARY | 2024-06-30 12:07 | XMS_ITS | Encounter Summary ---
Author Organization Healthcare Address [address] [place] [address] Care Team Providers Care Shipfitter Name Role Phone Unavailable Primary Care Provider Unavailabl e Encounter Details Date Type Department Care Team (Late st Contact Info) Description 04/26/2016 [facility] Vitals Encounter [facility] [address] [place] [address] Provider, MD Renetta [address] [place] [address] Social History Tobacco Use Types Packs/Day [...]
--- OUTSIDE RECORDS SUMMARY | 2024-06-30 12:07 | XMS_ITS | Encounter Summary ---
Author Organization Healthcare Address [address] [place] [address] Care Team Providers Care High Lift Operator Name Role Phone Unavailable Primary Care Provider Unavailabl e Encounter Details Date Type Department Care Team (Late st Contact Info) Description 01/09/2017 [facility] Vitals Encounter [facility] [address] [place] [address] Provider, MD Renetta [address] [place] [address] Social History Tobacco Use Types Packs/Day [...]
--- OUTSIDE RECORDS SUMMARY | 2024-06-30 12:07 | XMS_ITS | Encounter Summary ---
Author Organization [facility] Address [address] [place] [address] Care Team Providers Care Ase Master Mechanic Name Role Phone Unavailable Primary Care Provider Unavailabl e Encounter Details Date Type Department Care Team (Late st Contact Info) Description 12/14/2016 [facility] Vitals Encounter [facility] [address] [place] [address] Provider, MD Renetta [address] [place] [address] Social History Tobacco Use Types Packs/Day [...]
--- OUTSIDE RECORDS SUMMARY | 2024-06-30 12:07 | XMS_ITS | Encounter Summary ---
Author Organization Healthcare Address [address] [place] [address] Care Team Providers Care Corporate Representative Name Role Phone Unavailable Primary Care Provider Unavailabl e Encounter Details Date Type Department Care Team (Late st Contact Info) Description 09/16/2013 [facility] Vitals Encounter [facility] [address] [place] [address] Provider, MD Renetta [address] [place] [address] Social History Tobacco Use Types Packs/Day [...]
--- OUTSIDE RECORDS SUMMARY | 2024-06-30 12:07 | XMS_ITS | Encounter Summary ---
Author Organization Healthcare Address [address] [place] [address] Care Team Providers Care Planting Machine Crewman Name Role Phone Unavailable Primary Care Provider Unavailabl e Encounter Details Date Type Department Care Team (Late st Contact Info) Description 06/26/2017 [facility] Vitals Encounter [facility] [address] [place] [address] Provider, MD Renetta [address] [place] [address] Social History Tobacco Use Types Packs/Day [...]
--- NOTE | 2024-06-30 12:11 | XR_ITS ---
FINAL REPORT CLINICAL HISTORY: Pneumonia COMPARISON: 06/11/2024 FINDINGS: Two views of the chest were obtained. The heart size and pulmonary vascularity are within normal limits. The mediastinum is normal. The lungs are hyperinflated consistent with COPD. Partially improved right upper lobe opacity is consistent with improved pneumonia. There is no pneumothorax. The bony thorax is intact. IMPRESSION: Improved right upper lobe pneumonia. Reviewed, Interpreted and Dictated by Champ Tate III, MD Transcribed by Josefina Tim Authenticated and . [facility]
== END 2024-06-30 23:59 | disposition home or self-care (01) ==
LOC: RAD 12:04
PROVIDERS: PCP Internal Medicine Adolescent Medicine; Visit Provider Internal Medicine Pulmonary Disease
DX: J85.0 Gangrene and necrosis of lung (principal)
CPT/HCPCS: 71046

== ENCOUNTER 2024-07-11 07:07 | Outpatient (CLI) | payer MEDICARE, OTHER, SELFPAY ==
--- NOTE | 2024-07-11 | CA_ITS ---
APPROVED REPORT Exam: Pharmacologic Technologist: Alissa Lopez Ht: 6 ft 3 in Wt: 195 lbs BSA: 2.17 m2 Stress Test Details Test: Lexiscan Reason for pharmacologic stress test: physical limitation. HR Resting HR: 67 bpm Max Heart Rate (APMHR): 135.465975 bpm Max HR Achieved: 82 bpm Target HR (85% APMHR): 114.748499 bpm % of APMHR: 60.74 Recovery HR: 77 bpm BP Resting BP: 147.0/79.0 mmHg Max BP: 132.0/79.0 mmHg Recovery BP: 132.0/72.0 mmHg ECG Resting ECG: NSR, left axis deviation, cannot R/O old septal NM, PVC Stress ECG Conclusion Symptoms: Head discomfort, mild SOA. No CP. Arrhythmias/Ectopy: Occ PVC. One ventricular couplet rare PAC. ST-T Changes: No signifiacant changes. Conclusion: Unremarkable Lexiscan stress. Electronically signed by : Laura Chapa MD 07/16/2024 11:04:28
--- NOTE | 2024-07-11 07:18 | US_ITS ---
FINAL REPORT CLINICAL HISTORY: clauduacation COMPARISON: None FINDINGS: LOWER EXTREMITY SEGMENTAL PRESSURE MEASUREMENTS FINDINGS: Pressure indices are as follows: RIGHT LOWER EXTREMITY: Upper thigh: 150 Calf: Noncompressible Ankle, posterior tibial artery: Noncompressible Ankle, dorsalis pedis: Noncompressible Toe: 55 Comments: The examination of the right lower extremity is nondiagnostic. LEFT LOWER EXTREMITY: Upper thigh: 148 Calf: 183 Ankle, posterior tibial artery: 132 Ankle, dorsalis pedis: 189 Toe: 124 Comments: Although the values listed above are within the normal range for the left lower extremity, these may not be accurate secondary to calcified vessels over estimating pressure levels. IMPRESSION: Nondiagnostic examination of the right lower extremity. The values on the left side may not be accurate secondary to calcification of the vessels which overestimates pressure levels. Reviewed, Interpreted and Dictated by Aaron Marcelo MD Transcribed by Mariam Akers Authenticated and [facility]
--- NOTE | 2024-07-11 07:18 | NM_ITS ---
APPROVED REPORT Exam: Nuclear Stress Test Indication: a-fib..abn ECG Patient Location: Outpatient Stress Tech: Alissa ROMAN Tech:SARAHY Bianchi RT(R)(N) Ht: 6 ft 0 in Wt: 202 lbs HR: 67 bpm BP: 147/79 mmHg BSA: 2.14 m2 TID: 1.06 History: a-fib..abn ECG Procedure: Patient received 0.4 mg of intravenous Lexiscan, resting heart rate 67 bpm, resting blood pressure 147/79 mmHg, with Lexiscan maximum heart rate achieved was 77 bpm which is 85 % of the maximum predicted heart rate and blood pressure was 137/72 mmHg. With Lexiscan, patient denied any complaint of chest pain. The patient was not able to lay on his abdomen for prone images. Cardiac Stress and Resting SPECT Images: Cardiac Stress and Resting SPECT images were obtained using technetium 99m Myoview 30.7 mCi stress and 10.94 mCi at rest. The patient could not lie on his abdomen. Therefore, prone stress imaging could not be performed. This may affect the diagnostic interpretation of the study findings. Resting and stress imaging in supine positions demonstrate a large-sized, moderate, partially reversible perfusion defect in the inferior and inferoseptal LV clarke. Gated imaging demonstrates mild reduction in LV systolic function. There is moderate hypokinesis of the inferoseptal LV wall. LVEF is calculated at 41%. Conclusion: Large-sized, moderate, partially reversible perfusion defect in the inferior and inferoseptal LV clarke. Gated imaging demonstrates mild reduction in LV systolic function. There is moderate hypokinesis of the inferoseptal LV wall. LVEF is calculated at 41%. Electronically signed by : Laura Chapa MD 07/16/2024 10:54:44
--- NOTE | 2024-07-11 07:18 | CA_ITS ---
FINAL REPORT CLINICAL HISTORY: HTN, Xarelto and 81 mg ASA daily, Currently has a large pressure sore/bed sore on buttocks. Unable to lay flat due to this sore. Limited scanning. COMPARISON: None FINDINGS: Multiple transverse and longitudinal scans were performed of the femoral popliteal deep venous system, with augmentation and compression maneuvers. Normal phasic flow was noted in the visualized deep venous system. No intraluminal increased echogenicity is noted to suggest thrombus. There is normal compression and augmentation of the venous structures. No abnormal venous collaterals are seen. IMPRESSION: No evidence of deep venous thrombosis of the bilateral lower extremities. Reviewed, Interpreted and Dictated by Aaron Marcelo MD Transcribed by Mahsa Sumner Authenticated and . [facility]
[2024-07-11] MEDS: REGADENOSON 0.4MG/5ML SYRINGE 0.4 MG IV (09:08)
[2024-07-11] MEDS: SODIUM CHLORIDE 0.9% 10ML SYR (RAD ONLY) 10 ML IV ×2 (09:09)
[2024-07-11] MEDS: ISOTOPE MYOVIEW (PER STUDY) 1 DOSE IV (09:09)
== END 2024-07-11 23:59 | disposition home or self-care (01) ==
PROVIDERS: PCP Internal Medicine Adolescent Medicine; Visit Provider Internal Medicine
DX: R94.31 Abnormal electrocardiogram [ECG] [EKG] (principal); I48.91 Unspecified atrial fibrillation; M79.604 Pain in right leg; M79.605 Pain in left leg; R79.89 Other specified abnormal findings of blood chemistry; I48.92 Unspecified atrial flutter; R60.9 Edema, unspecified; I73.9 Peripheral vascular disease, unspecified
CPT/HCPCS: 78452; 93017; 93018; 93923; 93970; A9502; J2785